=== PATIENT | female | born 1970 | race Caucasian/White ===

== ENCOUNTER 2018-02-19 11:40 | Emergency (ER) | payer SELFPAY ==
[2018-02-19 11:44] VITALS: BP 155/92; PULSE 78; RESP 16; TEMP 36.7; O2SAT 99
--- NOTE | 2018-02-19 12:09 | DI.CT_ITS ---
SYMPTOMS/DIAGNOSIS: ABDOMINAL PAIN, WORSE LEFT LOWER QUADRANT AND LOW CENTRAL ABDOMINAL AND PELVIC CT: CT examination of the abdomen and pelvis was performed with a bolus infusion of 100 cc of Omnipaque 350 and ingestion of dilute barium. Images obtained through the lung bases are unremarkable. Note is made of an apparent 3.6 cm in diameter hepatic cyst. The gallbladder and bile ducts are CT normal. The pancreas is unremarkable in appearance. The spleen is unremarkable in appearance with incidental note made of a couple of splenules. Adrenals and kidneys are unremarkable. No urinary tract calcification or obstruction. Incidental small lower pole left renal cyst noted. Abdominal aorta is of normal diameter and no major vascular abnormality is seen. No significant abdominal wall hernia is seen. No significant abdominal or pelvic adenopathy. Appendix is normal. Note is made of wall thickening of the sigmoid colon with marked associated pericolonic fat edema. The findings are consistent with diverticulitis with no evidence of perforation, obstruction or abscess formation. Incidental note is made of a 3.0 cm in greatest diameter, mildly heterogeneous, rounded right adnexal mass consistent with right ovary. Pelvic ultrasound requested to rule out complex ovarian mass. Left ovary is unremarkable in appearance. CONCLUSION: 1. Findings consistent with uncomplicated sigmoid diverticulitis. 2. Incidental right ovarian mass, which is indeterminate by CT criteria; correlation with pelvic ultrasound recommended.
--- NOTE | 2018-02-19 12:11 | W.ED.GENAD ---
Discharge Plan Disposition Patient Disposition: HOME Condition: Fair Discharge Details Chief Complaint: Abd Prob Clinical Impression: Diverticulitis Primary Care Provider: Charanjit Arias ED Provider: Ana Beal Home Meds and New Rx's Prescriptions: New metronidazole 500 mg tablet 500 mg PO TID Qty: 30 RF: 0 sulfamethoxazole-trimethoprim [Bactrim DS] 800-160 mg tablet 1 tab PO BID Qty: 20 RF: 0 Discharge Instructions Instructions: Diverticulitis (ED), Diverticulitis Diet (ED) Additional Instructions: Encourage hydration. Tylenol and/or ibuprofen as needed for discomfort. Please take Bactrim and Keflex as prescribed. Please follow-up with primary care by the end of the week for reevaluation. Also need to discuss outpatient ultrasound for follow-up of the right ovarian mass noted incidentally on your CAT scan. If you develop fevers, chills, increased pain, vomiting, inability to stay hydrated or other new/worsening symptoms please seek care urgently once again Referrals: Charanjit Arias [Primary Care Provider] - Discharge Data Discharge Date/Time-TO BE ENTERED AT DEPARTURE: 02/19/18 14:50 Medical Decision Making Patient presents today with chief complaint of diffuse abdominal pain. On exam, pain is worse in the left lower quadrant and low central abdomen. She denies any change in urinary habits. Reports she is a difficult bowel movements no change in bowel habits for the past 2 days. She denies any blood in stool. She denies fevers or chills. Denies any nausea vomiting. No change in appetite. No guarding or rebound tenderness on exam. Patient is afebrile, pulse is 78. Patient appears nontoxic. Given location of the discomfort, and concern for possible diverticulitis. Patient does not have history of diverticulitis. Will obtain CT with oral and IV contrast as well as laboratory evaluation. Patient is status post hysterectomy, tubal ligation and has history of hypertension. Patient requesting Tylenol to help with discomfort Laboratory evaluation without significant abnormality CT reviewed by radiologist. Radiologist contacted the department and advised that she has acute diverticulitis with no signs of complication. Advised no abscess, no perforation. He also noted an incidental finding of a right ovarian mass that appears heterogeneous and advised an outpatient pelvic ultrasound Discussed these findings with the patient. She will be treated with Bactrim and Flagyl for diverticulitis. Advised that she avoid alcohol while taking antibiotics. Encourage use of a probiotic. Encouraged hydration. She is given strict return precautions. Advised that she follow-up with primary care the end of the week for reevaluation and to discuss the findings of the CT to schedule outpatient ultrasound of the ovarian mass. Patient did seem quite upset regarding the ovarian mass. No familial gynecologic cancers. Patient is an active smoker. All of her questions and concerns were addressed and she is in agreement with this plan. HPI General Mode of arrival: ambulatory. Date/Time Provider Initiated Documentation: 02/19/18 11:46. Limitations to Documentation: no limitations. Information obtained by: patient. History of Present Illness 47 year old F presents to the emergency department with the chief complaint of Abdominal pain, described as moderate, with intensity rated at 5. Quality is described as stabbing and aching, and is localized to the abdomen (generalized lower abdomen, worse in the LLQ). Patient reports radiation to back. Patient started experiencing this day(s) (2) and it has been constant. No relieving factors improve symptom(s), No exacerbating factors reported . Patient notes no other symptoms.; denies chest pain, cough, diaphoresis, fever/chills, headaches, loss of appetite, nausea/vomiting, rash and shortness of breath. Patient did receive the following treatments prior to arrival, NSAID Related Data Home Medications Medication Instructions Recorded Confirmed metronidazole 500 mg PO TID #30 tab 02/19/18 sulfamethoxazole-trimethoprim 1 tab PO BID #20 tab 02/19/18 [Bactrim DS] Previous Rx's Medication Instructions Recorded metronidazole 500 mg PO TID #30 tab 02/19/18 sulfamethoxazole-trimethoprim 1 tab PO BID #20 tab 02/19/18 [Bactrim DS] Allergies Allergy/AdvReac Type Severity Reaction Status Date / Time codeine [Codeine] AdvReac Unverified 02/19/18 11:48 lidocaine AdvReac heart Unverified 02/19/18 11:48 racing General Stated Complaint: Abd Prob GLORIA: 3 Review of Systems Constitutional Reports as per HPI, Denies chills, Denies fever(s) and Denies poor appetite Cardiovascular Reports as per HPI, Denies chest pain, Denies chest pain at rest, Denies chest pain with activity, Denies dyspnea and Denies dyspnea on exertion Respiratory Denies cough, Denies dyspnea and Denies dyspnea on exertion Gastrointestinal Reports as per HPI, Denies belching, Denies melena, Denies bloating, Reports change in bowel habits (reports that typically has a BM every few days. States that she had 5 small BM yesterady, one small, painful BM today. ), Denies diarrhea, Denies nausea and Denies vomiting Genitourinary Denies dysuria, Denies flank pain and Denies vaginal discharge Musculoskeletal Reports as per HPI and Reports back pain (pain radiates in the low central back) Integumentary/Breasts Denies rash PFSH Family History Mother Hyperlipidemia Father Essential hypertension Sister No problems noted. Brother Hyperlipidemia Grandfather No problems noted. Grandfather Personal history of malignant neoplasm Grandmother No problems noted. Grandmother Personal history of malignant neoplasm Social History Smoking/Tobacco Use Status: Current every day Surgical History HYSTERECTOMY Ligation of fallopian tube Exam Const General: cooperative, healthy appearing, comfortable, no acute distress, well developed and well groomed Nutritional Appearance: average body habitus and well nourished Orientation: alert and awake Eyes General: appearance normal, both eyes and all related structures Resp Effort & Inspection: normal respiratory effort, able to speak in complete sentences and no respiratory distress Auscultation: clear to auscultation bilaterally Cardio Rate: regular rate Rhythm: regular rhythm Heart Sounds: S1 normal and S2 normal GI Inspection: no abdominal wall ecchymosis, no edema, non-distended and incision (patient has well healed incisions from hysterectomy and tubal ligation) Palpation: soft, no hepatosplenomegaly, no aortic enlargement, not firm, no guarding, no masses, not rigid and tender (diffuse, worse in the LLQ and low central abdomen) periumbilically and suprapubicly; not at McBurney's point, Pinedo's sign negative and with no rebound tenderness Auscultation: normal bowel sounds Back/Spine/Pelvis Back: no CVA tenderness Thoracic/Lumbar Spine: thoracic and lumbar spine normal to inspection (pain patient reports radiates into the back is not reproducible on exam) Skin General skin exam: no rashes or lesions noted Lesions: no lesions Rashes: no rashes Neuro General: alert Cognition: normal cognition Speech: speech normal Gait: normal gait Psych Appearance: grossly normal and well kempt Mental Status: mental status grossly normal Speech and Movement: speech and movement normal Mood: congruent mood Course Vital Signs Temperature 36.7 C 02/19/18 11:44 Pulse 78 02/19/18 11:44 Respiratory Rate 16 02/19/18 11:44 Blood Pressure 155/92 H 02/19/18 11:44 Pulse Oximetry 99 02/19/18 11:44 Temperature 36.7 C 02/19/18 11:44 Temperature Source Skin 02/19/18 11:44 Pulse 78 02/19/18 11:44 Respiratory Rate 16 02/19/18 11:44 Respiratory Effort Non-Labored 02/19/18 11:44 Blood Pressure 155/92 H 02/19/18 11:44 Pulse Oximetry 99 02/19/18 11:44 Oxygen Delivery Method Room Air 02/19/18 11:44 Oxygen Flow Rate 0 02/19/18 11:44 Pain Level 5 02/19/18 11:48
--- NOTE | 2018-02-19 12:20 | ED.GENADUL_ITS ---
Discharge Plan Disposition Patient Disposition: HOME Condition: Fair Discharge Details Chief Complaint: Abd Prob Clinical Impression: Diverticulitis Primary Care Provider: Charanjit Arias ED Provider: Ana Beal Home Meds and New Rx's Prescriptions: New metronidazole 500 mg tablet 500 mg PO TID Qty: 30 RF: 0 sulfamethoxazole-trimethoprim [Bactrim DS] 800-160 mg tablet 1 tab PO BID Qty: 20 RF: 0 Discharge Instructions Instructions: Diverticulitis (ED), Diverticulitis Diet (ED) Additional Instructions: Encourage hydration. Tylenol and/or ibuprofen as needed for discomfort. Please take Bactrim and Keflex as prescribed. Please follow-up with primary care by the end of the week for reevaluation. Also need to discuss outpatient ultrasound for follow-up of the right ovarian mass noted incidentally on your CAT scan. If you develop fevers, chills, increased pain, vomiting, inability to stay hydrated or other new/worsening symptoms please seek care urgently once again Referrals: Charanjit Arias [Primary Care Provider] - Discharge Data Discharge Date/Time-TO BE ENTERED AT DEPARTURE: 02/19/18 14:50 Medical Decision Making Patient presents today with chief complaint of diffuse abdominal pain. On exam , pain is worse in the left lower quadrant and low central abdomen. She denies any change in urinary habits. Reports she is a difficult bowel movements no change in bowel habits for the past 2 days. She denies any blood in stool. She denies fevers or chills. Denies any nausea vomiting. No change in appetite. No guarding or rebound tenderness on exam. Patient is afebrile, pulse is 78. Patient appears nontoxic. Given location of the discomfort, and concern for possible diverticulitis. Patient does not have history of diverticulitis. Will obtain CT with oral and IV contrast as well as laboratory evaluation. Patient is status post hysterectomy, tubal ligation and has history of hypertension. Patient requesting Tylenol to help with discomfort Laboratory evaluation without significant abnormality CT reviewed by radiologist. Radiologist contacted the department and advised that she has acute diverticulitis with no signs of complication. Advised no abscess, no perforation. He also noted an incidental finding of a right ovarian mass that appears heterogeneous and advised an outpatient pelvic ultrasound Discussed these findings with the patient. She will be treated with Bactrim and Flagyl for diverticulitis. Advised that she avoid alcohol while taking antibiotics. Encourage use of a probiotic. Encouraged hydration. She is given strict return precautions. Advised that she follow-up with primary care the end of the week for reevaluation and to discuss the findings of the CT to schedule outpatient ultrasound of the ovarian mass. Patient did seem quite upset regarding the ovarian mass. No familial gynecologic cancers. Patient is an active smoker. All of her questions and concerns were addressed and she is in agreement with this plan. HPI General Mode of arrival: ambulatory . Date/Time Provider Initiated Documentation: 02/19/18 11:46 . Limitations to Documentation: no limitations . Information obtained by: patient . History of Present Illness 47 year old F presents to the emergency department with the chief complaint of Abdominal pain, described as moderate, with intensity rated at 5. Quality is described as stabbing and aching, and is localized to the abdomen ( generalized lower abdomen, worse in the LLQ). Patient reports radiation to back. Patient started experiencing this day(s) (2) and it has been constant. No relieving factors improve symptom(s), No exacerbating factors reported . Patient notes no other symptoms.; denies chest pain, cough, diaphoresis, fever/chills, headaches, loss of appetite, nausea/vomiting, rash and shortness of breath. Patient did receive the following treatments prior to arrival, NSAID Related Data Home Medications Medication Instructions Recorded Confirmed metronidazole 500 mg PO TID #30 tab 02/19/18 sulfamethoxazole-trimethoprim 1 tab PO BID #20 tab 02/19/18 [Bactrim DS] Previous Rx's Medication Instructions Recorded metronidazole 500 mg PO TID #30 tab 02/19/18 sulfamethoxazole-trimethoprim 1 tab PO BID #20 tab 02/19/18 [Bactrim DS] Allergies Allergy/AdvReac Type Severity Reaction Status Date / Time codeine [Codeine] AdvReac Unverified 02/19/18 11:48 lidocaine AdvReac heart Unverified 02/19/18 11:48 racing General Stated Complaint: Abd Prob GLORIA: 3 Review of Systems Constitutional Reports as per HPI, Denies chills, Denies fever(s) and Denies poor appetite Cardiovascular Reports as per HPI, Denies chest pain, Denies chest pain at rest, Denies chest pain with activity, Denies dyspnea and Denies dyspnea on exertion Respiratory Denies cough, Denies dyspnea and Denies dyspnea on exertion Gastrointestinal Reports as per HPI, Denies belching, Denies melena, Denies bloating, Reports change in bowel habits (reports that typically has a BM every few days. States that she had 5 small BM yesterady, one small, painful BM today. ), Denies diarrhea, Denies nausea and Denies vomiting Genitourinary Denies dysuria, Denies flank pain and Denies vaginal discharge Musculoskeletal Reports as per HPI and Reports back pain (pain radiates in the low central back) Integumentary/Breasts Denies rash PFSH Family History Mother Hyperlipidemia Father Essential hypertension Sister No problems noted. Brother Hyperlipidemia Grandfather No problems noted. Grandfather Personal history of malignant neoplasm Grandmother No problems noted. Grandmother Personal history of malignant neoplasm Social History Smoking/Tobacco Use Status: Current every day Surgical History HYSTERECTOMY Ligation of fallopian tube Exam Const General: cooperative, healthy appearing, comfortable, no acute distress, well developed and well groomed Nutritional Appearance: average body habitus and well nourished Orientation: alert and awake Eyes General: appearance normal, both eyes and all related structures Resp Effort & Inspection: normal respiratory effort, able to speak in complete sentences and no respiratory distress Auscultation: clear to auscultation bilaterally Cardio Rate: regular rate Rhythm: regular rhythm Heart Sounds: S1 normal and S2 normal GI Inspection: no abdominal wall ecchymosis, no edema, non-distended and incision ( patient has well healed incisions from hysterectomy and tubal ligation) Palpation: soft, no hepatosplenomegaly, no aortic enlargement, not firm, no guarding, no masses, not rigid and tender (diffuse, worse in the LLQ and low central abdomen) periumbilically and suprapubicly; not at McBurney's point, Pinedo's sign negative and with no rebound tenderness Auscultation: normal bowel sounds Back/Spine/Pelvis Back: no CVA tenderness Thoracic/Lumbar Spine: thoracic and lumbar spine normal to inspection (pain patient reports radiates into the back is not reproducible on exam) Skin General skin exam: no rashes or lesions noted Lesions: no lesions Rashes: no rashes Neuro General: alert Cognition: normal cognition Speech: speech normal Gait: normal gait Psych Appearance: grossly normal and well kempt Mental Status: mental status grossly normal Speech and Movement: speech and movement normal Mood: congruent mood Course Vital Signs Temperature 36.7 C 02/19/18 11:44 Pulse 78 02/19/18 11:44 Respiratory Rate 16 02/19/18 11:44 Blood Pressure 155/92 H 02/19/18 11:44 Pulse Oximetry 99 02/19/18 11:44 Temperature 36.7 C 02/19/18 11:44 Temperature Source Skin 02/19/18 11:44 Pulse 78 02/19/18 11:44 Respiratory Rate 16 02/19/18 11:44 Respiratory Effort Non-Labored 02/19/18 11:44 Blood Pressure 155/92 H 02/19/18 11:44 Pulse Oximetry 99 02/19/18 11:44 Oxygen Delivery Method Room Air 02/19/18 11:44 Oxygen Flow Rate 0 02/19/18 11:44 Pain Level 5 02/19/18 11:48
[2018-02-19 12:23] LABS: Abs Immature Grans 0.02 k/cumm (0.0-0.09); Absolute Basophil Count 0.04 k/cumm (0.0-0.2); Absolute Eosinophil Count 0.09 k/cumm (0.0-0.7); Absolute Lymphocyte Count 1.17 k/cumm (1.2-3.4); Absolute Monocyte Count 0.72 k/cumm (0.11-0.7); Absolute Neutrophil Count 5.54 k/cumm (1.2-6.7); Basophils % 0.5; Eosinophils % 1.2; HCT 44.5 % (36.0-46.0); HGB 15.1 g/dL (12.0-15.5); Immature Grans % 0.3; Lymphocytes % 15.4; Mean Corp. HGB Concentration 33.9 g/dL (32.0-36.0); Mean Corpuscular Hemoglobin 32.5 pg (27.0-33.0); Mean Corpuscular Volume 95.9 fL (80-95); Mean Platelet Volume 10.9 fL (8.0-11.0); Monocytes % 9.5; Neutrophils % 73.1; Platelet Count 262 x1000/uL (130-400); RBC 4.64 m/cumm (4.00-5.20); RBC Distribution Width 13.7 % (11.7-14.6); White Blood Cell Count 7.58 k/cumm (4.4-10.8)
[2018-02-19] MEDS: Acetaminophen 500 MG TAB 1000 MG PO (12:23)
[2018-02-19] MEDS: Normal Saline 1,000 ML 1000 ML IV (12:24)
[2018-02-19 12:33] LABS: Bilirubin Negative (Negative); Blood Negative (Negative); Clarity Clear; Glucose Negative (Negative); Ketones Negative (Negative); Leukocyte Esterase Negative (Negative); Nitrite Negative (Negative); Urobilinogen 0.2 EU/dL (Up TO 0.2); pH 6.5 (5-8)
[2018-02-19 12:37] LABS: ALT 38 U/L (12-78); AST 20 U/L (15-37); Albumin 3.8 g/dL (3.4-5.0); Alkaline Phosphatase 117 U/L (46-116); Anion Gap 10.4 mmol/L (3-11); BUN 10 mg/dL (7-18); Bilirubin, Total 0.3 mg/dL (0.2-1.0); CO2 24.6 mmol/L (21.0-32.0); CREATININE 0.78 mg/dL (0.55-1.02); Calcium 9.2 mg/dL (8.5-10.1); Chloride 101 mmol/L (98-107); Glucose 95 mg/dL (70-100); Lipase 144 U/L (73-393); Potassium 3.7 mmol/L (3.5-5.1); Sodium 136 mmol/L (136-145); Total Protein 8.6 g/dL (6.4-8.2)
[2018-02-19] MEDS: Omnipaque 350 MG/ML 100 ML BTL IJ (14:18)
[2018-02-19 14:37] VITALS: BP 155/92; PULSE 78; RESP 16; TEMP 36.7; O2SAT 99
== END 2018-02-19 14:50 | disposition home or self-care (01) ==
PROVIDERS: Emergency Provider Physician Assistant; PCP Family Medicine
DX: K57.32 Diverticulitis of large intestine without perforation or abscess without bleeding (principal); N83.201 Unspecified ovarian cyst, right side; I10 Essential (primary) hypertension
CPT/HCPCS: 80053; 83690; 96360; 99285; 74177; 81003; 85025; 99284; J3490

== ENCOUNTER 2018-02-23 01:04 | Outpatient (CLI) | payer SELFPAY ==
--- NOTE | 2018-02-23 14:03 | DI.US_ITS ---
SYMPTOM/DIAGNOSIS: RT OVARIAN MASS, N83.9 PELVIC ULTRASOUND: Transabdominal and transvaginal examination was performed. Comparison CT is 02/19/18. Comparison pelvic ultrasound is 03/09/11. The patient is status post hysterectomy. The right ovary measures 2.1 by 2 by 2.2 cm. There is a 1.6 by 1.8 by 1.9 cm. simple cyst arising from the right ovary. There is normal blood flow to the right ovary. No solid mass or torsion is seen. The left ovary measures 2.1 by 1.3 by 1.4 cm. and is grossly unremarkable. No free pelvic fluid or hydronephrosis is seen. Incidental note is made of increased echogenicity of the liver suggesting fatty infiltration. IMPRESSION: 1. Status post hysterectomy. 2. 1.9 cm. simple cyst on the right ovary.
== END 2018-02-23 01:24 ==
PROVIDERS: PCP Family Medicine; Visit Provider Family Medicine
DX: N83.291 Other ovarian cyst, right side (principal); Z90.710 Acquired absence of both cervix and uterus
CPT/HCPCS: 76830; 76856

== ENCOUNTER 2019-02-08 09:00 | Outpatient (CLI) | payer SELFPAY ==
[2019-02-08 11:23] LABS: Cholesterol 305 mg/dL (50-200); Glucose 99 mg/dL (70-100); HDL Cholesterol 37 mg/dL (40-60); Triglyceride 420 mg/dL (30-150)
[2019-02-08 12:04] LABS: LDL CHOLESTEROL 195 mg/dL (<100)
== END 2019-02-08 09:20 ==
PROVIDERS: PCP Family Medicine; Visit Provider Family Medicine
DX: Z68.28 Body mass index [BMI] 28.0-28.9, adult (principal); Z72.0 Tobacco use
CPT/HCPCS: 36415; 80061; 82947; 83721

== ENCOUNTER 2019-06-04 09:14 | Outpatient (CLI) | payer SELFPAY ==
[2019-06-04 13:02] LABS: Alkaline Phosphatase 94 U/L (46-116); Cholesterol 246 mg/dL (<200); HDL Cholesterol 51 mg/dL (40-60); Triglyceride 401 mg/dL (<150)
[2019-06-04 13:36] LABS: LDL CHOLESTEROL 136 mg/dL (<100)
[2019-06-04 13:59] LABS: Creatine Kinase 51 U/L (26-192)
== END 2019-06-04 09:34 ==
PROVIDERS: PCP Family Medicine; Visit Provider Family Medicine
DX: E78.5 Hyperlipidemia, unspecified (principal); R74.8 Abnormal levels of other serum enzymes; M89.8X9 Other specified disorders of bone, unspecified site
CPT/HCPCS: 36415; 80061; 82550; 83721; 84075

== ENCOUNTER 2019-08-21 00:44 | Outpatient (CLI) | payer SELFPAY ==
--- NOTE | 2019-08-21 07:00 | DI.DEXA_ITS ---
EXAM: XR DEXA BONE DENSITY W/WO [place] CLINICAL HISTORY: SCREENING FOR OSTEOPOROSIS IN POSTMENOPAUSAL WOMAN,Z78.0 COMPARISON: No exams were available for comparison FINDINGS: DEXA scan was performed according to the usual protocol. Findings for left hip scanning are T-score 0.3 with left femoral neck T score -0.1. Lumbar spine scanning shows T-score -0.3. Left forearm scanning shows T-score 0.2. IMPRESSION: Normal bone density according to the WHO criteria. The lateral vertebral scanogram shows no evidence of a vertebral compression fracture.
== END 2019-08-21 01:04 ==
PROVIDERS: PCP Family Medicine; Visit Provider Family Medicine
DX: Z13.820 Encounter for screening for osteoporosis (principal); Z78.0 Asymptomatic menopausal state
CPT/HCPCS: 77080

== ENCOUNTER 2019-11-28 00:17 | Outpatient (CLI) | payer SELFPAY ==
--- NOTE | 2019-11-28 07:00 | DI.MAMMO_ITS ---
EXAM: MAMMO SCREENING CLINICAL HISTORY: screening, Z12.39 TECHNIQUE: Mammograms were interpreted according to the usual protocol including computer analysis w [employer] CAD system, tomosynthesis and C-view imaging. COMPARISON: 2010 through 2015 FINDINGS: The breasts are composed of heterogeneously dense fibroglandular densities, Breast Density category C . No suspicious masses or suspicious microcalcifications are seen. No skin thickening or abnormal axillary lymph nodes are seen. There has been no significant change from prior exams. IMPRESSION: BI-RADS Category 1: Negative mammogram. Yearly screening mammography is recommended. Breast Density Category C, heterogeneously dense tissue which decreases the sensitivity of the mammog denise. The mammogram demonstrates the patient's breast tissue is dense. Dense breast tissue is very common a nd is not abnormal but dense breast tissue can make it harder to find cancer on a mammogram. Also, de nse breast tissue may increase breast cancer risk. This information about the result of the mammogram report was provided to the patient to raise their awareness. Use this report when you speak with the patient about their risks for breast cancer, which includes their family history. At that time, you may recommend additional screening tests (Ultrasound or MRI) as they might be useful based on their r isk. A negative radiographic report should not delay biopsy if a dominant or clinically suspicious mass is present. Up to ten percent of cancers are not identified on mammography. A negative report may reinforce clinical impression. Adenosis and dense breasts may obscure an underlying neoplasm. False positive reports average 6 to 10%.
== END 2019-11-28 00:37 ==
PROVIDERS: PCP Family Medicine; Visit Provider Family Medicine
DX: Z12.31 Encounter for screening mammogram for malignant neoplasm of breast (principal)
CPT/HCPCS: 77063; 77067

== ENCOUNTER 2020-05-16 08:30 | Emergency (ER) | payer SELFPAY ==
[2020-05-16 08:34] VITALS: BP 140/92; PULSE 69; RESP 17; TEMP 36.6; O2SAT 100
--- NOTE | 2020-05-16 08:45 | DI.CT_ITS ---
EXAM: CT NECK W CLINICAL HISTORY: L sided throat pain and swelling. TECHNIQUE: Imaging Protocol: Axial computed tomography images with coronal and sagittal reformatted images were created and reviewed CONTRAST MATERIAL: Intravenous: Omnipaque 350 Contrast volume:100 ml contrast route:IV - COMPARISON: No exams were available for comparison FINDINGS: There is asymmetric left-sided tonsillar enlargement. There is mild narrowing of the airway. There is a small central area of low density measuring 2.2 x 1.7 cm, consistent with an abscess. Punctate calcifications are seen in the right palatine tonsil which could be related to prior episodes in of i nflammation. Parotids/submandibular/thyroid gland: Normal. Lymphadenopathy: There is scattered lymph nodes seen along the level one to level three all measurin g less than 8 mm in short axis diameter which are physiologic in nature. Sinuses and mastoid air cells: Clear. Carotids/Jugular/vertebral arteries.: Within normal limits. Soft tissues: No visible cellulitis. No subcutaneous abscess. The epiglottis and vocal cords are within normal limits. Images through both lung apices are unremark able. Bones: No destructive lesions. IMPRESSION: Left palatine tonsillitis with 2.2 centimeter abscess and mild narrowing of the airway.. RADIATION DOSE DELIVERED: 305.52mGy.cm Total DLP DATA REPOSITORY: All CT scans at this facility are submitted to the National Radiology Data Registry (NRDR) Dose Index Registry (DIR) with the [employer] (A[employer]). RADIATION OPTIMIZATION: All CT scans at this facility use at least one of these dose optimization te chniques: automated exposure control; mA and/or kV adjustment per patient size (includes targeted exa ms where dose is matched to clinical indication); or iterative reconstruction.
[2020-05-16 09:14] LABS: Abs Immature Grans 0.04 10^3/uL (0.0-0.06); Absolute Basophil Count 0.06 10^3/uL (0.0-0.2); Absolute Eosinophil Count 0.11 10^3/uL (0.0-0.7); Absolute Lymphocyte Count 1.26 10^3/uL (1.2-3.4); Absolute Monocyte Count 0.75 10^3/uL (0.1-0.8); Absolute Neutrophil Count 6.14 10^3/uL (1.2-6.7); Basophils % 0.7; Eosinophils % 1.3; HCT 42.3 % (36.0-46.0); HGB 14.1 g/dL (11.2-15.7); Immature Grans % 0.5; Lymphocytes % 15.1; MCH 32.5 pg (27.0-33.0); MCHC 33.3 % (32.0-36.0); MCV 97.5 fL (80-95); MPV 10.9 fL (8.0-11.0); Neutrophils % 73.4; Nucleated RBC 0 %; Platelet Count 263 10^3/uL (130-400); RBC 4.34 10^6/uL (3.93-5.22); RDW 13.5 % (11.7-14.6); RDW-SD 48.9 fL; WBC 8.36 10^3/uL (4.4-10.8)
[2020-05-16 09:24] LABS: ALT 35 U/L (14-59); AST 15 U/L (15-37); Alkaline Phosphatase 117 U/L (46-116); Anion Gap 9.7 mmol/L (3-11); BUN 13 mg/dL (7-18); Bilirubin, Total 0.4 mg/dL (0.2-1.0); CO2 26.3 mmol/L (21.0-32.0); CREATININE 0.95 mg/dL (0.55-1.02); Calcium 9.2 mg/dL (8.5-10.1); Chloride 101 mmol/L (98-107); Glucose 110 mg/dL (74-106); Potassium 3.5 mmol/L (3.5-5.1); Sodium 137 mmol/L (136-145); Total Protein 8.5 g/dL (6.4-8.2)
[2020-05-16] MEDS: Omnipaque 350 MG/ML 100 ML BTL IJ (10:29)
[2020-05-16] MEDS: Normal Saline - Diluent 50 ML VIAL IV (10:29)
[2020-05-16] MEDS: Normal Saline Flush 10 ML SYR IVP (10:30)
--- NOTE | 2020-05-16 10:54 | DI.VRAD_ITS ---
PROCEDURE INFORMATION: Exam: CT Neck With Contrast Exam date and time: 05/16/2020 8:53 AM Age: 50 years old Clinical indication: Other: L sided throat pain and swelling TECHNIQUE: Imaging protocol: Computed tomography images of the neck with intravenous contrast. Radiation optimization: All CT scans at this facility use at least one of these dose optimization techniques: automated exposure control; mA and/or kV adjustment per patient size (includes targeted exams where dose is matched to clinical indication); or iterative reconstruction. Contrast material: OMNIPAQUE 350; Contrast volume: 100 ml; Contrast route: INTRAVENOUS (IV); COMPARISON: No relevant prior studies available. FINDINGS: Nasopharynx: Unremarkable. Oropharynx: There is a 2.2 x 1.7 x 1.6 cm swollen left tonsil with central low density and peripheral enhancing rim as well as some foci of peripheral air. There is resultant mild effacement of the ipsilateral oral airway. There are calcifications within the right palatine tonsil which likely represents sequelae of prior infection/inflammation. Hypopharynx: Unremarkable. Larynx: Unremarkable. Normal epiglottis. Retropharyngeal space: Unremarkable. Submandibular/Parotid glands: Normal. Glands are normal in size. Thyroid: Normal. No enlarged or calcified nodules. Lymph nodes: Reactive cervical lymph nodes. Trachea: Visualized trachea is unremarkable. Lungs: Unremarkable as visualized. Bones/joints: Unremarkable. No acute fracture. Soft tissues: Unremarkable. No significant soft tissue swelling. IMPRESSION: Left tonsillitis/tonsillar abscess with mild effacement of the ipsilateral oral airway. Recommend clinical correlation and consideration of ENT consultation. Dictated and Authenticated by: Everett Rodriguez MD. Ordering:UMANG Mixon MD
--- NOTE | 2020-05-16 11:02 | ED.GENADUL_ITS ---
Discharge Plan Disposition Patient Disposition: HOME Condition: Stable Discharge Details Clinical Impression: Tonsil, abscess Primary Care Provider: Charanjit Arias ED Provider: Oral Thompson Home Meds and New Rx's Prescriptions: New clindamycin HCl 300 mg capsule 300 mg PO Q8H 10 Days Qty: 30 RF: 0 Continued sertraline 50 mg tablet 50 mg PO DAILY Qty: 90 RF: 3 atorvastatin 20 mg tablet 20 mg PO QPM Qty: 90 RF: 3 Discharge Instructions Instructions: Peritonsillar Abscess (ED), Tonsillitis (ED) Additional Instructions: Clindamycin as directed. Salt water gargles as tolerated. [id number] Tylenol and/or Motrin as directed for discomfort. Please watch for new or worsening symptoms and return to the ER for any concerns. I have placed you on the ENT list, please contact the office of Dr. Payton on Monday for prompt outpatient reevaluation. Referrals: Jose Antonio Payton DO [OSTEOPATHIC DOCTOR] - Discharge Data Discharge Date/Time-TO BE ENTERED AT DEPARTURE: 05/16/20 12:49 Medical Decision Making 50-year-old female presents with left-sided throat-neck pain and swelling for the past 3 days worsening in nature. Denies any other symptoms. She is able to speak in full sentences, able to manage her secretions without difficulty. Rapid strep test is negative. Clinically this appears to be all left-sided, the left tonsil does appear to be enlarged, and there is minimal swelling of the left sided soft palate. Airway is patent. I am concerned for the possibility of a tonsillar-peritonsillar abscess. Will obtain IV access and obtain routine laboratory values. We will then obtain CT imaging with contrast of the soft tissues neck. Laboratory values are unremarkable. WBC is 8.36. Electrolytes unremarkable. GFR greater than 60. CT resulted and the impression per virtual radiology is a left tonsillitis- tonsillar abscess with mild effacement of the ipsilateral oral airway. Recommend clinical correlation and consider an ENT consultation. After the CT resulted, I did request that Dr. Knight evaluate the patient. Please see his note. Plan is to treat with IV clindamycin, Toradol, dexamethasone, normal saline and reassess. If patient is feeling better option for conservative therapy of antibiotic therapy and ENT follow-up versus attempted I&D here in the ER. Please see Dr. Knight's note. Upon reassessment, reports significant improvement of her symptoms with IV medication and declines emergent I&D. Will place on Dr. Dickson's callback list and have the patient contact his office first thing Monday morning. We d iscussed return immediately to the ER for new or evolving symptoms. Patient will be given a prescription of clindamycin. We discussed [id number] Tylenol and/or Motrin for discomfort. Salt water gargles as tolerated. Patient has no additional questions or concerns upon discharge comfortable with this plan. Upon discharge she appears well, nontoxic. Managing her own secretions and speaking full sentences. Her airway is patent. Lab Data Lab results reviewed: Yes I reviewed the patient's lab results. Lab results narrative: 05/16/20 08:48 Pharynx Streptococcus Screen ([facility]) - Pending Laboratory Tests Range/Units 05/16/20 05/16/20 09:00 09:00 WBC (4.4-10.8) 10^3/uL 8.36 RBC (3.93-5.22) 10^6/uL 4.34 Hgb (11.2-15.7) g/dL 14.1 Hct (36.0-46.0) % 42.3 MCV (80-95) fL 97.5 H MCH (27.0-33.0) pg 32.5 MCHC (32.0-36.0) % 33.3 RDW (11.7-14.6) % 13.5 Plt Count (130-400) 10^3/uL 263 MPV (8.0-11.0) fL 10.9 Immature Gran % 0.5 Neutrophils % 73.4 Lymphocytes % 15.1 Monocytes % 9.0 Eosinophils % 1.3 Basophils % 0.7 Nucleated RBC % % 0 Absolute Neutrophils (1.2-6.7) 10^3/uL 6.14 Absolute Lymphocytes (1.2-3.4) 10^3/uL 1.26 Absolute Monocytes (0.1-0.8) 10^3/uL 0.75 Absolute Eosinophils (0.0-0.7) 10^3/uL 0.11 Absolute Basophils (0.0-0.2) 10^3/uL 0.06 Sodium (136-145) mmol/L 137 Potassium (3.5-5.1) mmol/L 3.5 Chloride (98-107) mmol/L 101 Carbon Dioxide (21.0-32.0) mmol/L 26.3 Anion Gap (3-11) mmol/L 9.7 BUN (7-18) mg/dL 13 Creatinine (0.55-1.02) mg/dL 0.95 Estimated GFR/1.73 m2 (mL/min/1.73m2) >= 60.00 Glucose (74-106) mg/dL 110 H Calcium (8.5-10.1) mg/dL 9.2 Total Bilirubin (0.2-1.0) mg/dL 0.4 AST (15-37) U/L 15 ALT (14-59) U/L 35 Alkaline Phosphatase (46-116) U/L 117 H Total Protein (6.4-8.2) g/dL 8.5 H Albumin (3.4-5.0) g/dL 4.0 HPI General Mode of arrival: ambulatory . Date/Time Provider Initiated Documentation: 05/16/20 08:45 . Limitations to Documentation: no limitations . Information obtained by: patient . HPI Narrative: This is a 50-year-old female, past medical history that includes depression, current smoker, hyperlipidemia, presenting to the ER today with 3-day history of left-sided throat and neck discomfort. She reports is getting worse and now radiates up into her left ear. She denies headache, fever, ear drainage, shortness of breath, cough, chest pain, abdominal pain, nausea, vomiting, numbness, tingling, weakness. She does admit to increased pain with swallowing but she is able to manage her own secretions and she is able to tolerate p.o. intake.. Related Data Home Medications Medication Instructions Recorded Confirmed sertraline 50 mg tablet 50 mg PO DAILY #90 tab 08/28/19 05/16/20 atorvastatin 20 mg tablet 20 mg PO QPM #90 tab 03/09/20 05/16/20 clindamycin HCl 300 mg PO Q8H 10 Days #30 cap 05/16/20 Previous Rx's Medication Instructions Recorded sertraline 50 mg tablet 50 mg PO DAILY #90 tab 08/28/19 atorvastatin 20 mg tablet 20 mg PO QPM #90 tab 03/09/20 clindamycin HCl 300 mg PO Q8H 10 Days #30 cap 12/26/20 Allergies Allergy/AdvReac Type Severity Reaction Status Date / Time codeine [Codeine] AdvReac Verified 05/16/20 08:38 lidocaine AdvReac heart Verified 05/16/20 08:38 racing General Stated Complaint: Sorethroat GLORIA: 4 Review of Systems Constitutional Constitutional: Denies fever(s) and Denies headache(s) ENT Ears, Nose, Mouth, and Throat: Denies otalgia, Denies headache(s), Denies nasal congestion, Reports neck pain and Reports sore throat Cardiovascular Cardiovascular: Denies chest pain and Denies dyspnea Respiratory Respiratory: Denies cough and Denies dyspnea Gastrointestinal Gastrointestinal: Denies abdominal pain, Denies nausea and Denies vomiting Musculoskeletal Musculoskeletal: Denies back pain and Reports neck pain Integumentary/Breasts Skin/Breast: Denies rash Neurologic Neurologic: Denies headache(s) [facility] Medical History Dizziness Tobacco abuse Surgical History HYSTERECTOMY Supracervical Ligation of fallopian tube Family History Mother Hyperlipidemia Father Essential hypertension Sister No problems noted. Brother Hyperlipidemia Grandfather No problems noted. Grandfather Personal history of malignant neoplasm COLON Grandmother No problems noted. 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 Seatbelt use: always Do you feel safe at home: Yes Do you feel safe in your relationship?: Yes Exam Const General: cooperative, healthy appearing, comfortable and no acute distress Orientation: alert, awake and oriented x3 HENMT Head: normal to inspection, normocephalic and atraumatic Ears: external ears normal, TM's normal bilaterally and EAC's normal General nose exam: external nose normal Face and sinus: normal facial exam Mouth: lip normal, tongue normal, moist mucous membranes and no drooling Teeth and gingiva: dentition normal Throat: uvula midline, abnormal tonsil on the left erythema, exudates and hypertrophy 2+, posterior oropharynx abnormal erythema (Swelling of the left soft palate), uvula not displaced and no uvular edema Eyes General: appearance normal, both eyes and all related structures Eyelids: eyelids normal Conjunctivae: conjunctivae normal Neck Neck: normal visual inspection, full ROM, no meningeal signs, trachea midline, supple, lymphadenopathy left anterior cervical and tender (Left-sided) Resp Effort & Inspection: normal respiratory effort and able to speak in complete sentences Auscultation: clear to auscultation bilaterally Cardio Rate: regular rate Rhythm: regular rhythm Skin General skin exam: no rashes or lesions noted Neuro General: patient alert, patient awake, moves all extremities and no focal motor deficits Sensory Exam: no sensory deficits noted Psych Appearance: grossly normal Mental Status: mental status grossly normal Course Vital Signs Vital signs: Vital Signs Temperature 36.6 C 05/16/20 08:34 Pulse 69 05/16/20 08:34 Respiratory Rate 17 05/16/20 08:34 Blood Pressure 140/92 H 05/16/20 08:34 Pulse Oximetry 100 05/16/20 08:34 Temperature 36.6 C 05/16/20 08:34 Temperature Source Temporal Artery Scan 05/16/20 08:34 Pulse 69 05/16/20 08:34 Respiratory Rate 17 05/16/20 08:34 Respiratory Effort Non-Labored 05/16/20 08:36 Blood Pressure 140/92 H 05/16/20 08:34 Blood Pressure Position Sitting 05/16/20 08:34 Pulse Oximetry 100 05/16/20 08:34 Oxygen Delivery Method Room Air 05/16/20 08:34 Oxygen Flow Rate 0 05/16/20 08:34 Pain Level 8 05/16/20 08:34 Lab/Test Results Lab/Test Results: 05/16/20 08:48 Pharynx Streptococcus Screen ([facility]) - Pending Laboratory Tests Range/Units 05/16/20 05/16/20 09:00 09:00 WBC (4.4-10.8) 10^3/uL 8.36 RBC (3.93-5.22) 10^6/uL 4.34 Hgb (11.2-15.7) g/dL 14.1 Hct (36.0-46.0) % 42.3 MCV (80-95) fL 97.5 H MCH (27.0-33.0) pg 32.5 MCHC (32.0-36.0) % 33.3 RDW (11.7-14.6) % 13.5 Plt Count (130-400) 10^3/uL 263 MPV (8.0-11.0) fL 10.9 Immature Gran % 0.5 Neutrophils % 73.4 Lymphocytes % 15.1 Monocytes % 9.0 Eosinophils % 1.3 Basophils % 0.7 Nucleated RBC % % 0 Absolute Neutrophils (1.2-6.7) 10^3/uL 6.14 Absolute Lymphocytes (1.2-3.4) 10^3/uL 1.26 Absolute Monocytes (0.1-0.8) 10^3/uL 0.75 Absolute Eosinophils (0.0-0.7) 10^3/uL 0.11 Absolute Basophils (0.0-0.2) 10^3/uL 0.06 Sodium (136-145) mmol/L 137 Potassium (3.5-5.1) mmol/L 3.5 Chloride (98-107) mmol/L 101 Carbon Dioxide (21.0-32.0) mmol/L 26.3 Anion Gap (3-11) mmol/L 9.7 BUN (7-18) mg/dL 13 Creatinine (0.55-1.02) mg/dL 0.95 Estimated GFR/1.73 m2 (mL/min/1.73m2) >= 60.00 Glucose (74-106) mg/dL 110 H Calcium (8.5-10.1) mg/dL 9.2 Total Bilirubin (0.2-1.0) mg/dL 0.4 AST (15-37) U/L 15 ALT (14-59) U/L 35 Alkaline Phosphatase (46-116) U/L 117 H Total Protein (6.4-8.2) g/dL 8.5 H Albumin (3.4-5.0) g/dL 4.0 POC Strep Test-ALEXIS(Rapid) Start: 05/16/20 08:50 Freq: Status: Active Protocol: Document 05/16/20 08:50 (Rec: 05/16/20 08:50 [email or web address]) Strep test-ALEXIS(Rapid)-POC POC-Strep test-ALEXIS (Rapid) Negative POC-Strep test-ALEXIS (Rapid) Negative
[2020-05-16] MEDS: Dexamethasone 10 MG/ML VIAL IVP (11:09)
[2020-05-16] MEDS: Ketorolac 30 MG/ML VIAL IVP (11:09)
[2020-05-16] MEDS: Normal Saline 1,000 ML 1000 ML IV (11:09)
[2020-05-16] MEDS: CLINDAMYCIN 600 MG/50 ML BAG 100 MG IVPB (11:10)
[2020-05-16 12:34] VITALS: BP 145/92; PULSE 71; RESP 16; TEMP 36.7; O2SAT 94
--- NOTE | 2020-05-16 12:57 | NUR.NOTE ---
Nursing Note: Referral will not go through to ENT. Will be faxed Monday. Winifred Sheriff
--- NOTE | 2020-05-19 07:22 | NUR.NOTE ---
referral faxed to Ent for peritonsillar abscess.Nursing Note:
== END 2020-05-16 12:49 | disposition home or self-care (01) ==
PROVIDERS: Emergency Provider Physician Assistant; PCP Family Medicine
DX: J36 Peritonsillar abscess (principal)
CPT/HCPCS: 70491; 80053; 87880; 96361; 96365; 96375; 99285; 85025; 87081; 99284; J1100; J1885; J3490

== ENCOUNTER 2020-06-23 07:43 | Outpatient (REF) | payer SELFPAY ==
[2020-06-23 08:51] LABS: C Diff PCR Positive (Negative)
[2020-06-24 11:22] LABS: Campylobacter PCR Negative (Negative); Salmonella PCR Negative (Negative); Shiga Toxin PCR Negative (Negative); Shigella/Enteroinvasive Ecoli Negative (Negative)
== END 2020-06-23 07:44 | disposition home or self-care (01) ==
LOC: LBN 07:43
PROVIDERS: PCP Family Medicine; Visit Provider Nurse Practitioner Family
DX: R19.7 Diarrhea, unspecified (principal); K62.5 Hemorrhage of anus and rectum
CPT/HCPCS: 87329; 87493; 87505

== ENCOUNTER 2020-06-24 03:49 | Outpatient (CLI) | payer SELFPAY ==
[2020-06-24 09:57] LABS: Abs Immature Grans 0.03 10^3/uL (0.0-0.06); Absolute Basophil Count 0.05 10^3/uL (0.0-0.2); Absolute Eosinophil Count 0.06 10^3/uL (0.0-0.7); Absolute Lymphocyte Count 1.23 10^3/uL (1.2-3.4); Absolute Monocyte Count 0.66 10^3/uL (0.1-0.8); Absolute Neutrophil Count 3.26 10^3/uL (1.2-6.7); Basophils % 0.9; Eosinophils % 1.1; HCT 43.2 % (36.0-46.0); HGB 14.2 g/dL (11.2-15.7); Immature Grans % 0.6; Lymphocytes % 23.3; MCH 31.9 pg (27.0-33.0); MCHC 32.9 % (32.0-36.0); MCV 97.1 fL (80-95); MPV 11.2 fL (8.0-11.0); Monocytes % 12.5; Neutrophils % 61.6; Nucleated RBC 0 %; Platelet Count 274 10^3/uL (130-400); RBC 4.45 10^6/uL (3.93-5.22); RDW 13.4 % (11.7-14.6); RDW-SD 48.1 fL; WBC 5.29 10^3/uL (4.4-10.8)
[2020-06-24 10:26] LABS: ALT 34 U/L (14-59); AST 18 U/L (15-37); Albumin 4.1 g/dL (3.4-5.0); Alkaline Phosphatase 104 U/L (46-116); Anion Gap 12.2 mmol/L (3-11); BUN 14 mg/dL (7-18); Bilirubin, Total 0.3 mg/dL (0.2-1.0); CO2 24.8 mmol/L (21.0-32.0); CREATININE 0.9 mg/dL (0.55-1.02); Calcium 9.4 mg/dL (8.5-10.1); Chloride 100 mmol/L (98-107); Glucose 100 mg/dL (74-106); Potassium 4.6 mmol/L (3.5-5.1); Sodium 137 mmol/L (136-145); Total Protein 8.2 g/dL (6.4-8.2)
== END 2020-06-24 03:50 | disposition home or self-care (01) ==
LOC: LBO 03:49
PROVIDERS: PCP Family Medicine; Visit Provider Nurse Practitioner Family
DX: K62.5 Hemorrhage of anus and rectum (principal); R19.7 Diarrhea, unspecified
CPT/HCPCS: 36415; 80053; 85025

== ENCOUNTER 2020-08-14 02:29 | Outpatient (CLI) | payer SELFPAY ==
[2020-08-14 10:21] LABS: Source Nasal/Nares
[2020-08-14 14:35] LABS: COVID-19 PCR Negative (Negative)
== END 2020-08-14 02:30 | disposition home or self-care (01) ==
LOC: LBO 02:29
PROVIDERS: PCP Family Medicine; Visit Provider Otolaryngology Otolaryngology/Facial Plastic Surgery
DX: Z20.822 Contact with and (suspected) exposure to COVID-19 (principal); Z01.818 Encounter for other preprocedural examination
CPT/HCPCS: 87635

== ENCOUNTER 2020-08-17 06:15 | Day surgery (SDC) | payer SELFPAY ==
[2020-08-17] VITALS (9 sets, daily range): BP systolic 144–180; BP diastolic 92–108; PULSE 64–73; RESP 14–16; TEMP 36–36.7; O2SAT 97–100
[2020-08-17] MEDS: Lactated Ringers 1,000 ML 80 ML IV (07:00)
--- NOTE | 2020-08-17 07:26 | W.PM.DSUDISC ---
Discharge Plan Disposition Patient Disposition: HOME Condition: Good Discharge Details Attending Provider: Jose Antonio Payton Primary Care Provider: Charanjit Arias Home Meds and New Rx's Prescriptions: No Action sertraline 50 mg tablet 50 mg PO DAILY Qty: 90 RF: 3 atorvastatin 20 mg tablet 20 mg PO QAM RF: 0 Discharge Instructions Activity:: Activity as Tolerated Remove Dressings/Wound Care:: 24 hours Shower/Bathe:: 24 hours Diet:: As Tolerated Discharge Orders Discharge Orders: Discharge Order (Routine); Ordered 08/17/20 Ordered By: Jose Antonio Payton DS: Diagnosis Discharge Diagnosis (1) Tonsillar hypertrophy: Status: Acute (2) Peritonsillar abscess: Status: Acute
[2020-08-17] MEDS: Oxymetazolone 0.05% SPRAY 15 ML BTL (07:39)
--- NOTE | 2020-08-17 07:47 | TONSIL_PTH ---
PATIENT: Omaira Espinoza LOC: [facility] U#:[id number] AGE/SX: 50/F ROOM: RE08/17/[address]: Jose Antonio Payton DO : 1970 BED: DIS: 08/17/2020 SPEC #: [id number] RECD: 08/17/20 12:54 STATUS: DEX REQ #: [id number] DARA: 08/17/20 07:[address]: Jose Antonio Payton DEPT: Surgical Specimen RECD BY: Tiny Duvall ENTERED: 08/17/20 12:55 SP TYPE: TONSIL OTHR DR: Charanjit Arias MD Tissues: 1 - TONSIL AGE 17 & OVER 2 - TONSIL AGE 17 & OVER Procedures: GROSS AND MICRO LEVEL 3 Comments: [id number]
--- NOTE | 2020-08-17 08:08 | W.PM.OP ---
Operative Note Operative Note DATE OF PROCEDURE: 08/17/20 PRE-OP DIAGNOSIS: Chronic tonsillitis, history of peritonsillar abscess POST-OP DIAGNOSIS: same PROCEDURE: Tonsillectomy SURGEON: Jose Antonio Payton ANESTHESIA TYPE: General LMA/ETT Refer to Anesthesia Record ESTIMATED BLOOD LOSS: 1 PATHOLOGY: other COMPLICATIONS: None Patient was transported to: PACU Patient's condition: stable Indications: Pleasant female with a history of chronic tonsillitis and peritonsillar abscess, has proceeded and opted for tonsillectomy, risk and complications were discussed, consent was placed in the chart Findings: 2+ tonsils with bilateral stones Procedure Description: PROCEDURE IN DETAIL: Patient was brought back to the operating suite in stable condition, placed supine on the operating table, and intubated in normal fashion. The table was rotated 90 degrees. There was no evidence of submucosal clefting or bifid uvula. The McIvor retractor was placed in the oral cavity and suspended from the Patel stand. The right tonsil was grasped in the superior pole and medialized. Pinpoint cautery was used to develop the peritonsillar fascial plane, dissection was carried out to the upper and mid portions of the tonsil with final amputation conducted with suction cautery. There was no bleeding within the right tonsillar fossa. Next, the left tonsil was grasped in the superior pole with a curved Allis forceps and medialized. During dissection of both tonsils there was tonsil stones met bilaterally, tonsils came out nicely with no excessive bleeding. Pinpoint cautery was used to develop the peritonsillar fascial plane. Dissection was carried out in the plane in the superior and mid portion of the tonsils. Final amputation was conducted with suction cautery without bleeding within left fossa, Valsalva was performed without bleeding. TMJ's were checked and were free of dislocation. Gastric contents suctioned. The patient tolerated the procedure well and went to PACU in stable condition
[2020-08-17] MEDS: fentaNYL 100 MCG/2 ML VIAL IVP ×2 (08:20→08:30)
[2020-08-17] MEDS: ACETAMINOPHEN 1,000 MG/100 ML BTL 1000 MG (09:05)
[2020-08-17] MEDS: oxyCODONE 5 mg/Acetaminophen 325 mg TAB PO (09:28)
== END 2020-08-17 10:30 | disposition home or self-care (01) ==
PROVIDERS: PCP Family Medicine; Visit Provider Otolaryngology Otolaryngology/Facial Plastic Surgery
PROC: (CPT 42826; principal; 2020-08-17 07:30)
DX: J35.01 Chronic tonsillitis (principal)
CPT/HCPCS: 42826; 88304; J0131; J1100; J2001; J2250; J2405; J2704; J3010

== ENCOUNTER 2021-07-28 03:47 | Outpatient (CLI) | payer MEDICAID, SELFPAY ==
[2021-07-28 09:08] LABS: Cholesterol 313 mg/dL (<200); HDL Cholesterol 55 mg/dL (40-60); Triglyceride 571 mg/dL (<150)
[2021-07-28 09:18] LABS: LDL CHOLESTEROL 176 mg/dL (<100)
== END 2021-07-28 03:48 | disposition home or self-care (01) ==
LOC: LBO 03:48
PROVIDERS: PCP Family Medicine; Visit Provider Family Medicine
DX: E78.5 Hyperlipidemia, unspecified (principal)
CPT/HCPCS: 36415; 80061; 83721

== ENCOUNTER 2021-07-28 13:27 | Outpatient (REF) | payer MEDICAID, SELFPAY ==
--- NOTE | 2021-07-28 10:55 | PAPFT_PTH ---
PATIENT: Omaira Espinoza LOC: [facility] U#:[id number] AGE/SX: 51/F ROOM: RE07/28/[address]: Charanjit Arias MD : 1970 BED: DIS: 07/28/2021 SPEC #: [id number] RECD: 07/29/21 12:50 STATUS: LIONELRukhsana REQ #: [id number] DARA: 07/28/21 10:[address]: Charanjit Arias [facility]PT[facility] Cytology RECD BY: Tiny Duvall Tissues: 1 - CX/ENDOCX FOR PAP SMEARS Procedures: PAP THIN PREP/UVM Screening HPV DNA PROBE Comments: [id number]
== END 2021-07-28 13:28 | disposition home or self-care (01) ==
LOC: LBN 13:27
PROVIDERS: PCP Family Medicine; Visit Provider Family Medicine
DX: Z12.4 Encounter for screening for malignant neoplasm of cervix (principal); Z11.51 Encounter for screening for human papillomavirus (HPV)
CPT/HCPCS: 88142; 87624

== ENCOUNTER 2021-08-17 01:22 | Outpatient (CLI) | payer MEDICAID, SELFPAY ==
[2021-08-17 09:37] LABS: Estimated GFR 58.45 (mL/min/1.73m2)
[2021-08-17] MEDS: Omnipaque 350 MG/ML 100 ML BTL IJ (09:52)
[2021-08-17] MEDS: Omnipaque 350 MG/ML 50 ML BTL IJ (10:20)
--- NOTE | 2021-08-17 10:23 | DI.CT_ITS ---
Exam(s) CT ABD AORTA CTA W RUNOFF EXAM: CT ABD AORTA CTA W RUNOFF CLINICAL HISTORY: worsening moisés leg pain, M79.604, M79.605. TECHNIQUE: Imaging Protocol: Axial CT angiography was performed with multi-slice acquisition and mu lti-planar and/or 3D reconstructions. CONTRAST MATERIAL: Intravenous: Omnipaque 350 Contrast volume:125 mL Oral: No FINDINGS: Vascular Structures: Abdomen: Celiac [place]/SMA: No evidence of occlusion or significant stenosis. Renal Arteries: No evidence of occlusion or significant stenosis. There is a single renal artery perf using each kidney. Aorta: No aneurysm, occlusion or significant stenosis. No dissection. Mild atherosclerosis. Pelvis: Iliac Arteries: No evidence of occlusion or significant stenosis. Mild atherosclerosis. Lower extremities: Right: Common Femoral: No evidence of occlusion or significant stenosis. Femoral: No evidence of occlusion or significant stenosis. Deep Femoral Artery: No evidence of occlusion or significant stenosis. Popliteal: No evidence of occlusion or significant stenosis. Knee Trifurcation: No evidence of occlusion or significant stenosis. Anterior Tibial: No evidence of occlusion or significant stenosis. Posterior Tibial: No evidence of occlusion or significant stenosis. Peroneal:No evidence of occlusion or significant stenosis. Dorsalis Pedis: No evidence of occlusion or significant stenosis. Left: Common Femoral: No evidence of occlusion or significant stenosis. Femoral: No evidence of occlusion or significant stenosis. Deep femoral artery: No evidence of occlusion or significant stenosis. Popliteal: No evidence ofocclusion or significant stenosis. Knee Trifurcation: No evidence of occlusion or significant stenosis. Anterior tibial: No evidence of occlusion or significant stenosis. Posterior Tibial: No evidence of occlusion or significant stenosis. Peroneal: No evidence of occlusion or significant stenosis. Dorsalis Pedis: No evidence of occlusion or significant stenosis. Soft Tissues: Lung bases: Clear. Liver: Normal density. The hepatic cyst is shown interval increase in size measuring 4.5 x 4.0 cm. T his compares to 3.6 x 2.6 cm. Gallbladder and biliary tract: No radiodense calculus or dilation. Pancreas: Normal density, no abnormal calcifications or inflammatory process. Spleen: Normal. Kidneys: Normal size, contour and axis. No radiodense stones or obstructive uropathy. There is a stab le simple cyst in the inferior pole of the left kidney. No follow-up is recommended. Adrenal glands: No masses seen. Aorta: Abdominal portion non-dilated. Minimal atherosclerosis. No aneurysmal dilatation. Bladder: Symmetric distention, no gross wall thickening. Bowel: No obstruction or bowel wall thickening. There is diverticulosis in the colon but no evidence of acute diverticulitis. There is a normal appendix. Peritoneal cavity: No ascites, collection or mesenteric inflammatory response. No free air. Bones: Within normal limits. IMPRESSION: 1. Mild atherosclerosis of the abdominal aorta and iliac arteries. No evidence of occlusion or signi ficant stenosis of the aorta or the runoff. 2. Interval increase in size of left hepatic cyst. Currently, the cyst measures 4.5 x 4.0 cm. This compares to 3.6 x 2.6 cm. RADIATION DOSE DELIVERED: 1,279.68mGy.cm Total DLP 1,279.68mGy.cm Total DLP DATA REPOSITORY: All CT scans at this facility are submitted to the National Radiology Data Registry (NRDR) Dose Index Registry (DIR) with the [employer] (ACR). RADIATION OPTIMIZATION: All CT scans at this facility use at least one of these dose optimization te chniques: automated exposure control; mA and/or kV adjustment per patient size (includes targeted exa ms where dose is matched to clinical indication); or iterative reconstruction.
== END 2021-08-17 01:42 ==
PROVIDERS: PCP Family Medicine; Visit Provider Family Medicine
DX: I70.0 Atherosclerosis of aorta; M79.604 Pain in right leg; M79.605 Pain in left leg; K76.89 Other specified diseases of liver; N28.1 Cyst of kidney, acquired; I70.8 Atherosclerosis of other arteries; Z01.812 Encounter for preprocedural laboratory examination
CPT/HCPCS: 75635; 82565; J3490; Q9967

== ENCOUNTER 2021-08-26 00:40 | Outpatient (CLI) | payer MEDICAID, SELFPAY ==
--- NOTE | 2021-08-26 12:50 | DI.MAMMO_ITS ---
Exam(s) MAMMO SCREENING EXAM: MAMMO SCREENING CLINICAL HISTORY: screening,z12.39 TECHNIQUE: Bilateral full field digital CC and MLO mammographic images were obtained with 3D tomosyn thesis and utilizing computer aided detection (CAD). COMPARISON: Available for comparison. FINDINGS: Masses/Architectural Distortion: There is an area of asymmetric breast tissue in the central left delfina ast on the craniocaudad view. Microcalcifications: No suspicious pleomorphic-type are seen. Skin Thickening/Nipple Retraction: None. IMPRESSION: 1. Area of asymmetric breast tissue in the central left breast on the craniocaudad view. 2. This area should be further evaluated with a spot compression view. Ultrasound may be indicated a t that time. BI-RADS Category 0 - Assessment Incomplete: Need additional imaging evaluation Breast Density - Category C - Heterogeneously dense Breast density category C or D implies that the patient has dense breast tissue. Dense breast tissue is very common and is not abnormal but dense breast tissue can make it harder to find cancer on a ma mmogram. Also, dense breast tissue may increase their breast cancer risk. This information about the result of the mammogram report was provided to the patient to raise their awareness. Use this report when you speak with the patient about their risks for breast cancer, which includes their family hist ory. At that time, you may recommend for more screening tests (Ultrasound or MRI) as they might be us eful based on their risk. A negative radiographic report should not delay biopsy if a dominant or clinically suspicious mass is present. Up to ten percent of cancers are not identified on mammography. A negative report may reinforce clinical impression. Adenosis and dense breasts may obscure an underlying neoplasm. False positive reports average 6 to 10%. Patient will receive a letter notifying them of these results.
== END 2021-08-26 01:00 ==
PROVIDERS: PCP Family Medicine; Visit Provider Family Medicine
DX: Z12.31 Encounter for screening mammogram for malignant neoplasm of breast (principal); R92.8 Other abnormal and inconclusive findings on diagnostic imaging of breast
CPT/HCPCS: 77063; 77067

== ENCOUNTER 2021-09-06 01:12 | Outpatient (CLI) | payer MEDICAID, SELFPAY ==
--- NOTE | 2021-09-06 10:30 | DI.MAMMO_ITS ---
Exam(s) MAMMO SCREEN CALL BACK UNI EXAM: MAMMO SCREEN CALL BACK UNI CLINICAL HISTORY: F/U ABNL MAMMO, ASYMMETRIC TISSUE IN CENTRAL LT BREAST ON CC VIEW TECHNIQUE: Spot compression views and tomographic imaging were performed. COMPARISON: 2011 through 2019 and 26 August 2021 FINDINGS: No suspicious masses or suspicious microcalcifications are seen. No persistent abnormality is seen on the additional views performed. The findings are consistent wit h overlying fibroglandular tissue. There has been no significant change from prior exams. IMPRESSION: BI-RADS Category 1, Negative Yearly screening mammography is recommended. Breast Density - Category B, scattered fibroglandular densities.
== END 2021-09-06 01:32 ==
PROVIDERS: PCP Family Medicine; Visit Provider Family Medicine
DX: Z12.31 Encounter for screening mammogram for malignant neoplasm of breast (principal); R92.8 Other abnormal and inconclusive findings on diagnostic imaging of breast; N64.59 Other signs and symptoms in breast
CPT/HCPCS: 77063; 77067

== ENCOUNTER 2021-11-30 10:52 | Outpatient (CLI) | payer MEDICAID, SELFPAY ==
[2021-11-30 12:53] LABS: LDL CHOLESTEROL 148 mg/dL (<100); TSH (W/Ref FT4) 2.32 uIU/mL (0.36-3.74); Triglyceride 205 mg/dL (<150)
== END 2021-11-30 10:53 | disposition home or self-care (01) ==
LOC: LOS 10:52
PROVIDERS: PCP Family Medicine; Referring Provider Family Medicine; Visit Provider Family Medicine
DX: E03.9 Hypothyroidism, unspecified (principal); E78.5 Hyperlipidemia, unspecified; E78.1 Pure hyperglyceridemia
CPT/HCPCS: 36415; 83721; 84443; 84478

== ENCOUNTER 2021-12-22 10:53 | Emergency (ER) | payer MEDICAID, SELFPAY ==
[2021-12-22 10:57] VITALS: BP 181/96; PULSE 69; RESP 16; TEMP 37.4; O2SAT 100
--- NOTE | 2021-12-22 11:12 | ED.GENADUL_ITS ---
Discharge Plan Disposition Patient Disposition: HOME Condition: Improving Discharge Details Clinical Impression: Back pain, Hypokalemia Primary Care Provider: Charanjit Arias ED Provider: Oral Thompson Home Meds and New Rx's Prescriptions: Continued atorvastatin 40 mg tablet 40 mg PO DAILY Qty: 90 3RF fenofibrate nanocrystallized [Tricor] 145 mg tablet 145 mg PO DAILY Qty: 90 3RF Prempro 0.3-1.5 mg tablet 1 tab PO DAILY Qty: 84 2RF Discharge Instructions Additional Instructions: Your urinalysis and blood work do not reveal any obvious source of your back pain. Your potassium level was low, we could give a single dose here in the ER, and as we discussed I would increase your potassium intake over the next several days. In the meantime we will treat your discomfort as musculoskeletal pain. Rest, gentle stretching as tolerated, cool and/or warm compresses every 2 hours for 20 minutes. [id number] Tylenol and/or Motrin as directed for discomfort. Please watch for new or worsening symptoms and return to the ER for any concerns. I would like you to contact your primary care provider later today or tomorrow to discuss your ER visit and need for outpatient reevaluation of both your back pain and potassium levels. Discharge Data Discharge Date/Time-TO BE ENTERED AT DEPARTURE: 12/22/21 13:00 Medical Decision Making 51-year-old female presents for right-sided back pain for the past 4 days, worse with movement, responding to Tylenol and Motrin. She denies fever, trauma, abdominal pain, nausea, vomiting, dysuria, hematuria vaginal bleeding or discharge. Clinically it certainly appears as though it could be musculoskeletal but given her lack of previous back pain or obvious trauma, plan is to obtain CBC, CMP, assess for potential infection, renal function, LFTs, etc. as well as obtain a urinalysis. Patient provided with 30 IV Toradol and upon reevaluation reports the pain has almost completely resolved with the Toradol. She remains neurologically intact, no evidence of cauda equina. No midline point tenderness. No fever, denies IV drug use. Laboratory values reveal a potassium of 3.0, otherwise unremarkable. She has no evidence of leukocytosis, hematuria, etc. LFTs unremarkable. 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 I will provide 40 p.o. potassium now we did discuss the importance of increasing potassium intake as well as having her levels rechecked through her PCP in the next week. Given her overall benign work-up, response to Toradol, I see no clear indication to initiate advanced imaging such as ultrasound and or CT. Patient is comfortable with this and will treat as musculoskeletal and follow-up with PCP next week. Standard discharge and return precautions were provided. Patient understands, is agreeable to this plan, and has no additional questions or concerns upon discharge. This documentation was generated using [employer] system, please disregard any oddities of phrase or misspellings. Medical Records Medical records reviewed: Yes I reviewed the patient's medical records. Lab Data Lab results reviewed: Yes I reviewed the patient's lab results. Labs: Laboratory Tests Range/Units 12/22/21 12/22/21 12/22/21 11:04 11:43 11:43 WBC (4.4-10.8) 10^3/uL 7.60 RBC (3.93-5.22) 10^6/uL 4.07 Hgb (11.2-15.7) g/dL 13.0 Hct (36.0-46.0) % 37.7 MCV (80-95) fL 93 MCH (27.0-33.0) pg 31.9 MCHC (32.0-36.0) % 34.5 RDW (11.7-14.6) % 13.7 Plt Count (130-400) 10^3/uL 305 MPV (8.0-11.0) fL 10.9 Immature Gran % 0.4 Neutrophils % 74.2 Lymphocytes % 16.7 Monocytes % 7.4 Eosinophils % 0.5 Basophils % 0.8 Nucleated RBC % (0.0-0.3) % 0.0 Absolute Neutrophils (1.2-6.7) 10^3/uL 5.64 Absolute Lymphocytes (1.2-3.4) 10^3/uL 1.27 Absolute Monocytes (0.1-0.8) 10^3/uL 0.56 Absolute Eosinophils (0.0-0.7) 10^3/uL 0.04 Absolute Basophils (0.0-0.2) 10^3/uL 0.06 Sodium (136-145) mmol/L 141 Potassium (3.5-5.1) mmol/L 3.0 L Chloride (98-107) mmol/L 104 Carbon Dioxide (21.0-32.0) mmol/L 25.6 Anion Gap (3-11) mmol/L 11.4 H BUN (7-18) mg/dL 11 Creatinine (0.55-1.02) mg/dL 1.0 Estimated GFR/1.73 m2 (mL/min/1.73m2) 58.45 Glucose (74-106) mg/dL 113 H Calcium (8.5-10.1) mg/dL 9.0 Total Bilirubin (0.2-1.0) mg/dL 0.3 AST (15-37) U/L 30 ALT (14-59) U/L 41 Alkaline Phosphatase (46-116) U/L 55 Total Protein (6.4-8.2) g/dL 7.8 Albumin (3.4-5.0) g/dL 3.9 Lipase (73-393) U/L 115 Urine Color (Yellow) Yellow Urine Clarity (Clear) Sl Cloudy Urine pH (5-8) 6.5 Ur Specific Ewing (1.005-1.025) 1.010 Urine Protein (Negative) mg/dL Negative Urine Ketones (Negative) mg/dL Negative Urine Blood (Negative) Negative Urine Nitrite (Negative) Negative Urine Bilirubin (Negative) Negative Urine Urobilinogen (Up TO 0.2) EU/dL 0.2 Ur Leukocyte Esterase (Negative) Negative Urine Glucose (Negative) mg/dL Negative HPI General Mode of arrival: ambulatory . Date/Time Provider Initiated Documentation: 12/22/21 10:54 . Limitations to Documentation: no limitations . Information obtained by: patient . History of Present Illness 51 year old F presents to the emergency department with the chief complaint of R back pain, described as moderate, with intensity rated at 5. Quality is described as aching, and is localized to the back and right. Patient reports no radiation. Patient started experiencing this day(s) (4) and it has been constant. No relieving factors improve symptom(s), Movement worsens symptoms . Patient notes no other symptoms.. Patient did receive the following treatments prior to arrival, NSAID Related Data Home Medications Medication Instructions Recorded Confirmed atorvastatin 40 mg tablet 40 mg PO DAILY #90 tabs 07/28/21 12/22/21 fenofibrate nanocrystallized 145 145 mg PO DAILY #90 tabs 07/31/21 12/22/21 mg tablet (Tricor) conj estrogen-medroxyprogesterone 1 tab PO DAILY #84 tabs 10/01/21 12/22/21 0.3 mg-1.5 mg tablet (Prempro) Previous Rx's Medication Instructions Recorded atorvastatin 40 mg tablet 40 mg PO DAILY #90 tabs 07/28/21 fenofibrate nanocrystallized 145 145 mg PO DAILY #90 tabs 07/31/21 mg tablet (Tricor) conj estrogen-medroxyprogesterone 1 tab PO DAILY #84 tabs 10/01/21 0.3 mg-1.5 mg tablet (Prempro) Allergies Allergy/AdvReac Type Severity Reaction Status Date / Time trazodone AdvReac Intermediate Headache Verified 12/22/21 11:01 codeine [Codeine] AdvReac heart Verified 12/22/21 11:01 racing lidocaine AdvReac heart Verified 12/22/21 11:01 racing General Stated Complaint: FlankPain GLORIA: 3 Review of Systems Constitutional Constitutional: Denies fever(s) Cardiovascular Cardiovascular: Denies chest pain and Denies dyspnea Respiratory Respiratory: Denies cough and Denies dyspnea Gastrointestinal Gastrointestinal: Denies abdominal pain, Denies constipation, Denies diarrhea, Denies nausea and Denies vomiting Genitourinary Genitourinary: Denies abnormal vaginal bleeding, Denies dysuria and Denies vaginal discharge Musculoskeletal Musculoskeletal: Reports back pain Integumentary/Breasts Skin/Breast: Denies rash PFSH All Active Problems (Updated 12/22/21 @ 12:45 by EMILEE Hager) Back pain (Acute) Hypokalemia (Acute) Hyperlipidemia LDL goal <130 (Acute) Elevated blood pressure reading without diagnosis of hypertension (Acute) C. difficile colitis (Acute) Left lower quadrant pain (Acute) Depression (Chronic) Dizziness (Acute) Hot flashes (Acute) Tobacco abuse (Acute) Leg pain, bilateral (Acute) Upper respiratory infection (Acute) Ovarian mass, right (Acute) we will get u/s, as suggested tylenol as needed for pain Medical History Peritonsillar abscess Tonsillar hypertrophy Surgical History HYSTERECTOMY Supracervical Ligation of fallopian tube Family History Mother Hyperlipidemia Father Essential hypertension Sister No problems noted. Brother Hyperlipidemia Grandfather No problems noted. Grandfather Personal history of malignant neoplasm COLON Grandmother No problems noted. Grandmother Personal history of malignant neoplasm PANCREATIC Social History Smoking/Tobacco Use Status: Current every day Tobacco Type: cigarettes Tobacco: How many years used: 35 Quit status: has quit before Second Hand Exposure: Yes Smoking risk assessment performed?: Yes Alcohol Intake: current Alcohol Intake frequency: holidays/special occasions only Alcohol type: beer Drug use: Occasionally Substance use type: marijuana Details: Hasnt smoked since 08/15/20. 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 Pets and animals: Yes Pets and animals: dog(s) Sexually active: Yes Do you think of yourself as: straight/heterosexual Current gender identity: female What is your relationship status?: How often do you talk on the phone with friends or family?: three or more times per week How often do you get together with friends or relatives?: once per week How often do you attend jainism or hindu services?: decline to answer Do you belong to any clubs or organized social groups?: no Panel score (0-1 are the most socially isolated patients): 2 What type of physical activity do you participate in: weight lifting Duration: 30-45 minutes/day Frequency: 3-4 times per week Special agustin needs: No Seatbelt use: sometimes Helmet use: No Drive intox or ride w/intox commercial collections driver: No Do you feel safe at home: Yes Do you feel safe in your relationship?: Yes Exam Const General: cooperative, healthy appearing, comfortable and no acute distress Orientation: alert and awake [facility] Head: normal to inspection, normocephalic and atraumatic Eyes Conjunctivae: conjunctivae normal Neck Neck: normal visual inspection, full ROM, trachea midline and supple Resp Effort & Inspection: normal respiratory effort and able to speak in complete sentences Auscultation: clear to auscultation bilaterally Cardio Rate: regular rate Rhythm: regular rhythm GI Palpation: soft, not firm, no guarding, no pulsatile masses and nontender Back/Spine/Pelvis Back: no CVA tenderness and back tenderness (Diffuse, mild right lumbar discomfort) Skin General skin exam: no rashes or lesions noted Neuro General: patient alert, patient awake, moves all extremities and no focal motor deficits Cognition: normal cognition Speech: speech normal Gait: normal gait Motor: muscle tone normal throughout Sensory Exam: no sensory deficits noted Extrem General: normal to inspection, full ROM, capillary refill normal and no pedal edema Psych Appearance: grossly normal Mental Status: mental status grossly normal Course Vital Signs Vital signs: Vital Signs Temperature 37.4 C 12/22/21 10:57 Pulse 69 12/22/21 10:57 Respiratory Rate 16 12/22/21 10:57 Blood Pressure 181/96 H 12/22/21 10:57 Pulse Oximetry 100 12/22/21 10:57 Temperature 37.4 C 12/22/21 10:57 Temperature Source Skin 12/22/21 10:57 Pulse 69 12/22/21 10:57 Respiratory Rate 16 12/22/21 10:57 Respiratory Effort Non-Labored 12/22/21 11:01 Blood Pressure 181/96 H 12/22/21 10:57 Blood Pressure Position Sitting 12/22/21 10:57 Pulse Oximetry 100 12/22/21 10:57 Oxygen Delivery Method Room Air 12/22/21 10:57 Oxygen Flow Rate 0 12/22/21 10:57 Pain Level 6 12/22/21 10:57
[2021-12-22 11:16] LABS: Bilirubin Negative (Negative); Blood Negative (Negative); Clarity Sl Cloudy (Clear); Glucose Negative (Negative); Ketones Negative (Negative); Leukocyte Esterase Negative (Negative); Nitrite Negative (Negative); Urobilinogen 0.2 EU/dL (Up TO 0.2); pH 6.5 (5-8)
[2021-12-22] MEDS: Ketorolac 30 MG/ML VIAL IVP (11:44)
[2021-12-22 11:48] LABS: Abs Immature Grans 0.03 10^3/uL (0.0-0.06); Absolute Basophil Count 0.06 10^3/uL (0.0-0.2); Absolute Eosinophil Count 0.04 10^3/uL (0.0-0.7); Absolute Lymphocyte Count 1.27 10^3/uL (1.2-3.4); Absolute Monocyte Count 0.56 10^3/uL (0.1-0.8); Absolute Neutrophil Count 5.64 10^3/uL (1.2-6.7); Basophils % 0.8; Eosinophils % 0.5; HCT 37.7 % (36.0-46.0); Immature Grans % 0.4; Lymphocytes % 16.7; MCH 31.9 pg (27.0-33.0); MCHC 34.5 % (32.0-36.0); MCV 93 fL (80-95); MPV 10.9 fL (8.0-11.0); Monocytes % 7.4; Neutrophils % 74.2; Platelet Count 305 10^3/uL (130-400); RBC 4.07 10^6/uL (3.93-5.22); RDW 13.7 % (11.7-14.6); RDW-SD 46.6 fL
[2021-12-22 12:07] LABS: ALT 41 U/L (14-59); AST 30 U/L (15-37); Albumin 3.9 g/dL (3.4-5.0); Alkaline Phosphatase 55 U/L (46-116); BUN 11 mg/dL (7-18); Bilirubin, Total 0.3 mg/dL (0.2-1.0); CO2 25.6 mmol/L (21.0-32.0); Estimated GFR 58.45 (mL/min/1.73m2); Glucose 113 mg/dL (74-106); Lipase 115 U/L (73-393); Total Protein 7.8 g/dL (6.4-8.2)
[2021-12-22 12:17] LABS: Anion Gap 11.4 mmol/L (3-11); Chloride 104 mmol/L (98-107); Sodium 141 mmol/L (136-145)
--- NOTE | 2021-12-22 12:33 | CMPROGNOTE_ITS ---
- If Service Date Differs Date of service: 12/22/21 Time of Service: 12:33 Care Management Progress Note SBIRT screen: positive for nicotine, alcohol moderate (AUDIT 17) anxiety (ELIZA 9). Brief intervention, Pt states she wants to quit smoking and is considering cutting down alcohol use. Pt reports she has tried several medications for anxiety management but no counseling. We discussed alternatives that might be helpful with alxiety and alcohol use including counseling, mindfulness pract ices, recovery coaching. Pt was provided with resources for nicotine cessation, recovery coaching, counseling and the 24 hour number for crisis as needed for support with anxiety. Pt was encouraged to consult with her PCP regarding counseling and other supports.
[2021-12-22] MEDS: Potassium Chloride 20 MEQ TABCR 40 MEQ PO (12:55)
[2021-12-22 12:56] VITALS: BP 156/88; PULSE 82; RESP 18; TEMP 37.3; O2SAT 98
== END 2021-12-22 13:00 | disposition home or self-care (01) ==
PROVIDERS: Emergency Provider Physician Assistant; PCP Family Medicine
DX: M54.9 Dorsalgia, unspecified (principal); E87.6 Hypokalemia; F17.210 Nicotine dependence, cigarettes, uncomplicated
CPT/HCPCS: 36415; 80053; 83690; 96374; 99284; 81003; 85025; J1885

== ENCOUNTER 2022-08-29 00:12 | Outpatient (CLI) | payer MEDICAID, SELFPAY ==
--- NOTE | 2022-08-29 12:20 | DI.MAMMO_ITS ---
Exam(s) MAMMO SCREENING EXAM: MAMMO SCREENING CLINICAL HISTORY: screening,z12.39 TECHNIQUE: Bilateral full field digital CC and MLO mammographic images were obtained with 3D tomosyn thesis and utilizing computer aided detection (CAD). COMPARISON: Available for comparison. FINDINGS: Masses/Architectural Distortion: None seen. Microcalcifications: No suspicious pleomorphic-type are seen. Skin Thickening/Nipple Retraction: None. IMPRESSION: 1. No significant interval change with no specific features of malignancy noted. 2. Unless there is more urgent need, screening mammography is recommended, as per [place] [employer] guidelines. BI-RADS Category 1 - Negative Breast Density - Category C - Heterogeneously dense Breast density category C or D implies that the patient has dense breast tissue. Dense breast tissue is very common and is not abnormal but dense breast tissue can make it harder to find cancer on a ma mmogram. Also, dense breast tissue may increase their breast cancer risk. This information about the result of the mammogram report was provided to the patient to raise their awareness. Use this report when you speak with the patient about their risks for breast cancer, which includes their family hist ory. At that time, you may recommend for more screening tests (Ultrasound or MRI) as they might be us eful based on their risk. A negative radiographic report should not delay biopsy if a dominant or clinically suspicious mass is present. Up to ten percent of cancers are not identified on mammography. A negative report may reinforce clinical impression. Adenosis and dense breasts may obscure an underlying neoplasm. False positive reports average 6 to 10%. Patient will receive a letter notifying them of these results.
== END 2022-08-29 00:32 ==
LOC: DI 00:13
PROVIDERS: PCP Family Medicine; Visit Provider Family Medicine
DX: Z12.31 Encounter for screening mammogram for malignant neoplasm of breast (principal)
CPT/HCPCS: 77063; 77067

== ENCOUNTER 2022-08-30 08:38 | Emergency (ER) | payer MEDICAID, SELFPAY ==
[2022-08-30 08:41] VITALS: BP 190/106; PULSE 85; RESP 18; TEMP 37; O2SAT 95
--- NOTE | 2022-08-30 08:45 | DI.CT_ITS ---
Exam(s) CT ABDOMEN PELVIS W EXAM: CT ABDOMEN PELVIS W CLINICAL HISTORY: suprapubic pain and LLQ pain, hx of divertic. TECHNIQUE: Imaging Protocol: Axial computed tomography images with coronal and sagittal reformatted images were created and reviewed CONTRAST MATERIAL: Intravenous: Omnipaque-350 100cc Oral: None COMPARISON: CT CT ABD AORTA CTA W RUNOFF from 08/17/2021 FINDINGS: VISUALIZED LUNG BASES: No nodules nor pleural effusions evident. ABDOMEN: There is no ascites. LIVER: There is again noted a prominent cysts in the right hepatic lobe just medial to the gallbladde r fossa, unchanged and measuring 4.8 cm by 3.8 cm. No new additional cysts in the liver evident. Castellon btle benign-appearing enhancing area posteriorly in the right hepatic lobe is possibly an hemangioma. . No dilated intrahepatic ducts. GALLBLADDER/BILIARY: The gallbladder is slightly compressed by the adjacent liver cysts described abo ve. No obvious gallstones nor gallbladder wall edema. CBD not dilated. No PANCREAS: No evidence of pancreatic mass nor dilatation of the pancreatic duct. SPLEEN: Spleen is not enlarged. No obvious intrasplenic lesions. Splenic and portal veins are paten t. ADRENALS: There are no significant adrenal masses. KIDNEYS:No cysts evident. No solid renal masses. No calculi nor hydronephrosis.. ABDOMINAL AORTA: Abdominal aorta is not enlarged. LYMPH NODES:There is no retroperitoneal nor paraaortic adenopathy. ABDOMINAL WALL: No evidence of significant anterior abdominal wall nor inguinal hernia. GI: No evidence of bowel obstruction. PELVIS: GI: No evidence of appendicitis.Extensive sigmoid diverticulosis again noted. There is also circumfe rential long segment wall thickening in the sigmoid. However, there is now perisigmoid streaking con sistent with acute inflammatory findings-diverticulitis. There is no evidence of abscess nor fistulo us communication to the adjacent urinary bladder at this time. LYMPH NODES: There is no intrapelvic nor inguinal adenopathy. REPRODUCTIVE: Air is seen within the endometrial canal as well as in the cervix and vagina. This of questionable significance. URINARY BLADDER: No masses nor calculi. No gas in the lumen to suggest fistulous communication from the diverticulitis of the adjacent sigmoid. OSSEOUS: No fractures and no significant osseous lesions. Benign bone island in the right iliac wing is unchanged from prior study. IMPRESSION: 1. Extensive sigmoid diverticulosis with evidence of acute sigmoid diverticulitis. No abscess nor ev idence of fistulous communication at this time. No gas in the portal venous system. 2. Stable cyst in the liver adjacent to the gallbladder fossa, this measuring approximately 3.8 x 4.8 cm. 3. No evidence of acute appendicitis. Called by myself to ER physician RADIATION DOSE DELIVERED: 1,107.18mGy.cm Total DLP DATA REPOSITORY: All CT scans at this facility are submitted to the National Radiology Data Registry (NRDR) Dose Index Registry (DIR) with the [employer] (ACR). RADIATION OPTIMIZATION: All CT scans at this facility use at least one of these dose optimization te chniques: automated exposure control; mA and/or kV adjustment per patient size (includes targeted exa ms where dose is matched to clinical indication); or iterative reconstruction.
[2022-08-30] MEDS: Normal Saline 1,000 ML 1000 ML IV (09:31)
[2022-08-30] MEDS: ACETAMINOPHEN 1,000 MG/100 ML BTL 400 MG IVPB (09:31)
[2022-08-30 09:33] LABS: Abs Immature Grans 0.02 10^3/uL (0.0-0.06); Absolute Basophil Count 0.05 10^3/uL (0.0-0.2); Absolute Eosinophil Count 0.05 10^3/uL (0.0-0.7); Absolute Lymphocyte Count 1.24 10^3/uL (1.2-3.4); Absolute Monocyte Count 0.68 10^3/uL (0.1-0.8); Absolute Neutrophil Count 6.22 10^3/uL (1.2-6.7); Basophils % 0.6; Eosinophils % 0.6; HCT 41.7 % (36.0-46.0); HGB 13.8 g/dL (11.2-15.7); Immature Grans % 0.2; Lactate 1.4 mmol/L (0.6-1.4); MCH 30.3 pg (27.0-33.0); MCHC 33.1 % (32.0-36.0); MCV 92 fL (80-95); Monocytes % 8.2; Neutrophils % 75.4; Platelet Count 369 10^3/uL (130-400); RBC 4.55 10^6/uL (3.93-5.22); RDW 13.3 % (11.7-14.6); RDW-SD 45.7 fL; WBC 8.26 10^3/uL (4.4-10.8)
[2022-08-30 09:54] LABS: ALT 23 U/L (14-59); AST 16 U/L (15-37); Albumin 4.1 g/dL (3.4-5.0); Alkaline Phosphatase 77 U/L (46-116); Anion Gap 4.3 mmol/L (3-11); BUN 12 mg/dL (7-18); Bilirubin, Total 0.4 mg/dL (0.2-1.0); CO2 25.7 mmol/L (21.0-32.0); Calcium 9.7 mg/dL (8.5-10.1); Chloride 104 mmol/L (98-107); Estimated GFR 67.78 (mL/min/1.73m2); Glucose 102 mg/dL (74-106); Lipase 42 U/L (16-77); Potassium 3.6 mmol/L (3.5-5.1); Sodium 134 mmol/L (136-145); Total Protein 8.8 g/dL (6.4-8.2)
--- NOTE | 2022-08-30 09:56 | ED.GENADUL_ITS ---
Discharge Plan Disposition Patient Disposition: Home Condition: Good Discharge Details Clinical Impression: Diverticulitis, Colon wall thickening Primary Care Provider: Charanjit Arias ED Provider: Constantin Canseco Home Meds and New Rx's Prescriptions: New ciprofloxacin HCl [Cipro] 500 mg tablet 500 mg PO BID 10 Days Qty: 20 0RF metronidazole 500 mg tablet 500 mg PO TID 10 Days Qty: 30 0RF Continued omeprazole magnesium [Prilosec OTC] 20 mg tablet,delayed release (DR/EC) 20 mg PO DAILY Qty: 90 3RF mirtazapine [Remeron] 15 mg tablet 15 mg PO DAILY Qty: 90 3RF Prempro 0.3-1.5 mg tablet 1 tab PO DAILY Qty: 84 2RF metoprolol succinate 25 mg tablet extended release 24 hr 25 mg PO DAILY Qty: 90 3RF atorvastatin 40 mg tablet 40 mg PO DAILY Qty: 90 3RF fenofibrate nanocrystallized [Tricor] 145 mg tablet 145 mg PO DAILY Qty: 90 3RF Discharge Instructions Instructions: Ciprofloxacin (By mouth), Metronidazole (By mouth), Diverticulitis (ED) Additional Instructions: As we discussed together at this time your CAT scan shows evidence of diverticulitis. There is please take the antibiotic as directed. It has been sent to your pharmacy on file. Please follow-up closely with your primary care provider to discuss colonoscopy, as there was notable thickening throughout your colon and this can be concerning for cancer. However you will need to have resolution of your inflammatory state of diverticulitis before this is performed. Please take Tylenol and Motrin as needed for pain. Stick with a bland easy diet of soup, liquids, applesauce, bananas. Please avoid any foods with seeds that are small like blueberries or strawberries or raspberries. If you notice any worsening of your symptoms, or any new symptoms such as vomiting, diarrhea, fever, chills, shortness of breath, chest pain, numbness, weakness, or fainting , please return immediately to the emergency department for reevaluation. Please follow up with your primary care provider as soon as possible for reassessment and reevaluation. As always, it was a pleasure participating in your medical care today. Referrals: Charanjit Arias MD [Primary Care Provider] - Medical Decision Making 52-year-old female with a past medical history of diverticulitis, previous C. difficile colitis, high cholesterol, hypertension, adjustment disorder, depression, previous ovarian mass on the right, hysterectomy, and pre vious tubal ligation, presents today for evaluation of abdominal pain. Patient states that for the last week she has had waxing and waning abdominal pain which she describes as achy, in the suprapubic region, slightly radiating to the left. Pain is made worse with movement. Improved by nothing. No associated urinary symptoms. No diarrhea or blood in her stool. No vomiting. She has taken some ibuprofen but this has not improved her symptoms. She denies any other complaints. Symptoms feel similar to previous diverticulitis. No other complaints at this time. No other modifying factors. Physical exam demonstrates left lower and suprapubic abdominal pain, left obturator sign, left CVA tenderness. Differential at this time is highest for diverticulitis, kidney stone, pyelonephritis. Patient was offered morphine for pain control but has refused, we will give of her meth, get a CT scan, monitor closely and reassess. 11:31 AM On reassessment the patient is feeling somewhat better. Laboratory work-up is notably stable. No significant white count or bandemia. CT scan shows colonic thickening and diverticulitis. No evidence of perforation or abscess. Patient remains hemodynamically stable. At this time her symptoms correlate clinically with diverticulitis as well. Patient feels well. I did discuss options of inpatient admission versus discharge and at this time through shared decision- making process patient feels comfortable with discharge prefer that direction. We will give Cipro Flagyl here, with plan for discharge. Prescription for Cipro Flagyl will be sent to her pharmacy on file. I did discuss symptoms for which to monitor for and that she can return anytime if her symptoms continue or worsen. I also discussed the importance of having a colonoscopy in the near future especially as there is some thickening noted on her CT scan. During the discussions with this with her she did state that her family doctor recommended this just this past week, but she had declined at that time. She will reassess her options now. Discussed red flags which to return. I have extensively reviewed the treatment plan and discharge instructions with the patient. I have addressed all patient concerns at this time. The patient was made aware of what symptoms to monitor for that would warrant a return to the emergency department. Discussed the plan with the patient, they demonstrate verbal understanding and agreement with our assessment and plan at this time. The documentation in this chart was dictated using [employer] dictation software. Please excuse any dictation errors. FINDINGS: VISUALIZED LUNG BASES: No nodules nor pleural effusions evident. ABDOMEN: There is no ascites. LIVER: There is again noted a prominent cysts in the right hepatic lobe just medial to the gallbladder fossa, unchanged and measuring 4.8 cm by 3.8 cm. No new additional cysts in the liver evident. Subtle benign-appearing enhancing area posteriorly in the right hepatic lobe is possibly an hemangioma.. No dilated intrahepatic ducts. GALLBLADDER/BILIARY: The gallbladder is slightly compressed by the adjacent liver cysts described above. No obvious gallstones nor gallbladder wall edema. CBD not dilated. No PANCREAS: No evidence of pancreatic mass nor dilatation of the pancreatic duct. SPLEEN: Spleen is not enlarged. No obvious intrasplenic lesions. Splenic and portal veins are patent. ADRENALS: There are no significant adrenal masses. KIDNEYS:No cysts evident. No solid renal masses. No calculi nor hydronephrosis.. ABDOMINAL AORTA: Abdominal aorta is not enlarged. LYMPH NODES:There is no retroperitoneal nor paraaortic adenopathy. ABDOMINAL WALL: No evidence of significant anterior abdominal wall nor inguinal hernia. GI: No evidence of bowel obstruction. PELVIS: GI: No evidence of appendicitis.Extensive sigmoid diverticulosis again noted. There is also circumferential long segment wall thickening in the sigmoid. However, there is now perisigmoid streaking consistent with acute inflammatory findings-diverticulitis. There is no evidence of abscess nor fistulous communication to the adjacent urinary bladder at this time. LYMPH NODES: There is no intrapelvic nor inguinal adenopathy. REPRODUCTIVE: Air is seen within the endometrial canal as well as in the cervix and vagina. This of questionable significance. URINARY BLADDER: No masses nor calculi. No gas in the lumen to suggest fistulous communication from the diverticulitis of the adjacent sigmoid. OSSEOUS: No fractures and no significant osseous lesions. Benign bone island in the right iliac wing is unchanged from prior study. IMPRESSION: 1. Extensive sigmoid diverticulosis with evidence of acute sigmoid diverticulitis. No abscess nor evidence of fistulous communication at this time. No gas in the portal venous system. 2. Stable cyst in the liver adjacent to the gallbladder fossa, this measuring approximately 3.8 x 4.8 cm. 3. No evidence of acute appendicitis. HPI General Date/Time Provider Initiated Documentation: 08/30/22 08:44 . HPI Narrative: 52-year-old female with a past medical history of diverticulitis, previous C. difficile colitis, high cholesterol, hypertension, adjustment disorder, depression, previous ovarian mass on the right, hysterectomy, and previous tubal ligation, presents today for evaluation of abdominal pain. Patient states that for the last week she has had waxing and waning abdominal pain which she describes as achy, in the suprapubic region, slightly radiating to the left. Pain is made worse with movement. Improved by nothing. No associated urinary symptoms. No diarrhea or blood in her stool. No vomiting. She has taken some ibuprofen but this has not improved her symptoms. She denies any other complaints. Symptoms feel similar to previous diverticulitis. No other complaints at this time. No other modifying factors. Related Data Home Medications Medication Instructions Recorded Confirmed mirtazapine 15 mg tablet (Remeron) 15 mg PO DAILY #90 tabs 03/10/22 08/03/22 conj estrogen-medroxyprogesterone 1 tab PO DAILY #84 tabs 07/11/22 08/03/22 0.3 mg-1.5 mg tablet (Prempro) metoprolol succinate 25 mg 25 mg PO DAILY #90 tabs 07/15/22 08/03/22 tablet,extended release 24 hr omeprazole magnesium 20 mg 20 mg PO DAILY #90 tabs 08/03/22 08/03/22 tablet,delayed release (Prilosec OTC) atorvastatin 40 mg tablet 40 mg PO DAILY #90 tabs 08/22/22 fenofibrate nanocrystallized 145 145 mg PO DAILY #90 tabs 08/22/22 mg tablet (Tricor) ciprofloxacin HCl 500 mg tablet 500 mg PO BID 10 days #20 tabs 08/30/22 (Cipro) metronidazole 500 mg tablet 500 mg PO TID 10 days #30 tabs 08/30/22 Previous Rx's Medication Instructions Recorded mirtazapine 15 mg tablet (Remeron) 15 mg PO DAILY #90 tabs 03/10/22 conj estrogen-medroxyprogesterone 1 tab PO DAILY #84 tabs 07/11/22 0.3 mg-1.5 mg tablet (Prempro) metoprolol succinate 25 mg 25 mg PO DAILY #90 tabs 07/15/22 tablet,extended release 24 hr omeprazole magnesium 20 mg 20 mg PO DAILY #90 tabs 08/03/22 tablet,delayed release (Prilosec OTC) atorvastatin 40 mg tablet 40 mg PO DAILY #90 tabs 08/22/22 fenofibrate nanocrystallized 145 145 mg PO DAILY #90 tabs 08/22/22 mg tablet (Tricor) ciprofloxacin HCl 500 mg tablet 500 mg PO BID 10 days #20 tabs 08/30/22 (Cipro) metronidazole 500 mg tablet 500 mg PO TID 10 days #30 tabs 08/30/22 Allergies Allergy/AdvReac Type Severity Reaction Status Date / Time losartan Allergy Intermediate angioedema Verified 08/03/22 09:25 trazodone AdvReac Intermediate Headache Verified 08/03/22 09:25 codeine [Codeine] AdvReac heart Verified 08/03/22 09:25 racing lidocaine AdvReac heart Verified 08/03/22 09:25 racing General Stated Complaint: Abd Prob GLORIA: 3 Review of Systems All systems reviewed & are unremarkable except as noted in HPI and below PFSH All Active Problems (Updated 08/30/22 @ 11:29 by Constantin Canseco DO) Diverticulitis (Chronic) Colon wall thickening (Acute) Adjustment disorder with anxious mood (Acute) Essential hypertension (Acute) Hyperlipidemia LDL goal <130 (Acute) C. difficile colitis (Acute) Left lower quadrant pain (Acute) Depression (Chronic) Dizziness (Acute) Hot flashes (Acute) Tobacco abuse (Acute) Leg pain, bilateral (Acute) Upper respiratory infection (Acute) Ovarian mass, right (Acute) we will get u/s, as suggested tylenol as needed for pain Medical History Peritonsillar abscess Tonsillar hypertrophy Surgical History HYSTERECTOMY Supracervical Ligation of fallopian tube Family History Mother Hyperlipidemia Father Essential hypertension Sister No problems noted. Brother Hyperlipidemia Grandfather No problems noted. Grandfather Personal history of malignant neoplasm COLON Grandmother No problems noted. Grandmother Personal history of malignant neoplasm PANCREATIC Social History Smoking/Tobacco Use Status: Current every day Tobacco Type: cigarettes Tobacco: How many years used: 35 Quit status: has quit before Second Hand Exposure: Yes Smoking risk assessment performed?: Yes Alcohol Intake: current Alcohol Intake frequency: a few times a month Alcohol type: beer Drug use: Rarely Substance use type: marijuana Details: Hasnt smoked since 08/15/20. 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 Pets and animals: Yes Pets and animals: dog(s) Sexually active: Yes Do you think of yourself as: straight/heterosexual Current gender identity: female What is your relationship status?: How often do you talk on the phone with friends or family?: twice per week How often do you get together with friends or relatives?: twice per week How often do you attend scientologist or moravian services?: decline to answer Do you belong to any clubs or organized social groups?: no Panel score (0-1 are the most socially isolated patients): 2 What type of physical activity do you participate in: walking Duration: 15-30 minutes/day Frequency: 1-2 times per week Rekha/Denominational: None Special rekha needs: No Seatbelt use: always Helmet use: Yes Helmet use: always Drive intox or ride w/intox [id number] tank driver: No Do you feel safe at home: Yes Do you feel safe in your relationship?: Yes Exam Narrative Exam Narrative: 1.Const: Well-nourished, Well-developed, appearing stated age 2.Eyes: PERRL, no conjunctival injection, and symmetrical lids. 3.ENT: Atraumatic external nose and ears. Moist MM. Neck: Symmetric, trachea midline, No thyromegaly. 4.CVS: +S1/S2, No murmurs or gallops. Peripheral pulses 2+ and equal in all extremities. Brisk capillary refill in all extremities. 5.RESP: Unlabored respiratory effort. Clear to auscultation bilaterally. No wheezes rales or rhonchi 6.GI: Soft, nondistended, no guarding or rebound, mild to moderate tenderness in the suprapubic and left lower quadrant region. Positive heel strike test, positive left-sided obturator sign. No pain to McBurney's point, negative Pinedo sign. 7.MSK: Normocephalic/Atraumatic, Extremities w/o deformity or ttp No cyanosis or clubbing, Normal movement of all extremities 8.Skin: Warm, Dry. No rashes or lesions. 9.Neuro: commissioner of officials II-XII grossly intact. Sensation grossly intact, no focal neurologic deficits. 10.Psych: (AAO) x3. Appropriate mood and affect Course Vital Signs Vital signs: Vital Signs Temperature 37 C 08/30/22 08:41 Pulse 85 08/30/22 08:41 Respiratory Rate 18 08/30/22 08:41 Blood Pressure 190/106 H 08/30/22 08:41 Pulse Oximetry 95 08/30/22 08:41 Temperature 37 C 08/30/22 08:41 Temperature Source Oral 08/30/22 08:41 Pulse 85 08/30/22 08:41 Respiratory Rate 18 08/30/22 08:41 Respiratory Effort Normal, Non-Labored 08/30/22 08:49 Blood Pressure 190/106 H 08/30/22 08:41 Blood Pressure Position Supine 08/30/22 08:41 Pulse Oximetry 95 08/30/22 08:41 Oxygen Delivery Method Room Air 08/30/22 08:41 Oxygen Flow Rate 0 08/30/22 08:41 Lab/Test Results Lab/Test Results: Laboratory Tests Range/Units 08/30/22 08/30/22 08/30/22 09:29 09:29 09:29 WBC (4.4-10.8) 10^3/uL 8.26 RBC (3.93-5.22) 10^6/uL 4.55 Hgb (11.2-15.7) g/dL 13.8 Hct (36.0-46.0) % 41.7 MCV (80-95) fL 92 MCH (27.0-33.0) pg 30.3 MCHC (32.0-36.0) % 33.1 RDW (11.7-14.6) % 13.3 Plt Count (130-400) 10^3/uL 369 MPV (8.0-11.0) fL 11.0 Immature Gran % 0.2 Neutrophils % 75.4 Lymphocytes % 15.0 Monocytes % 8.2 Eosinophils % 0.6 Basophils % 0.6 Nucleated RBC % (0.0-0.3) % 0.0 Absolute Neutrophils (1.2-6.7) 10^3/uL 6.22 Absolute Lymphocytes (1.2-3.4) 10^3/uL 1.24 Absolute Monocytes (0.1-0.8) 10^3/uL 0.68 Absolute Eosinophils (0.0-0.7) 10^3/uL 0.05 Absolute Basophils (0.0-0.2) 10^3/uL 0.05 VBG Lactate (0.6-1.4) mmol/L 1.4 Sodium (136-145) mmol/L 134 L Potassium (3.5-5.1) mmol/L 3.6 Chloride (98-107) mmol/L 104 Carbon Dioxide (21.0-32.0) mmol/L 25.7 Anion Gap (3-11) mmol/L 4.3 BUN (7-18) mg/dL 12 Creatinine (0.55-1.02) mg/dL 1.0 Est GFR (CKD-EPI 2020) (mL/min/1.73m2) 67.78 Glucose (74-106) mg/dL 102 Calcium (8.5-10.1) mg/dL 9.7 Total Bilirubin (0.2-1.0) mg/dL 0.4 AST (15-37) U/L 16 ALT (14-59) U/L 23 Alkaline Phosphatase (46-116) U/L 77 Total Protein (6.4-8.2) g/dL 8.8 H Albumin (3.4-5.0) g/dL 4.1 Lipase (16-77) U/L 42
[2022-08-30 09:59] VITALS: BP 148/78; PULSE 66
[2022-08-30 10:06] LABS: Bilirubin Negative (Negative); Blood Negative (Negative); Clarity Clear (Clear); Glucose Negative (Negative); Ketones Negative (Negative); Leukocyte Esterase Negative (Negative); Nitrite Negative (Negative); Urobilinogen 0.2 mg/dL (Up to 0.2)
[2022-08-30] MEDS: Normal Saline - Diluent 50 ML VIAL IJ (10:14)
[2022-08-30] MEDS: Omnipaque 350 MG/ML 500 ML BTL-Imaging package IJ (10:15)
[2022-08-30] MEDS: Normal Saline Flush 10 ML SYR IVP (10:17)
[2022-08-30 11:22] VITALS: BP 174/99; PULSE 71; RESP 16; O2SAT 98
[2022-08-30] MEDS: metroNIDAZOLE 500 MG TAB PO (11:25)
[2022-08-30] MEDS: Ciprofloxacin 500 MG TAB PO (11:25)
== END 2022-08-30 11:42 | disposition home or self-care (01) ==
PROVIDERS: Emergency Provider Student in an Organized Health Care Education/Training Program; PCP Family Medicine
DX: K57.32 Diverticulitis of large intestine without perforation or abscess without bleeding (principal); K63.89 Other specified diseases of intestine; I10 Essential (primary) hypertension; Z98.51 Tubal ligation status; Z90.710 Acquired absence of both cervix and uterus
CPT/HCPCS: 36415; 80053; 83690; 96361; 96374; 99285; 74177; 81003; 83605; 85025; 99284; J0131

== ENCOUNTER 2022-09-02 10:52 | Inpatient (IN) | payer MEDICAID, SELFPAY ==
--- NOTE | 2022-09-02 10:56 | ED.GENADUL_ITS ---
Discharge Plan Disposition Patient Disposition: Admit to [facility] Condition: Stable Discharge Details Clinical Impression: Acute diverticulitis Primary Care Provider: Charanjit Arias ED Provider: Hazel He Home Meds and New Rx's Prescriptions: No Action omeprazole magnesium [Prilosec OTC] 20 mg tablet,delayed release (DR/EC) 20 mg PO DAILY Qty: 90 3RF mirtazapine [Remeron] 15 mg tablet 15 mg PO DAILY Qty: 90 3RF Prempro 0.3-1.5 mg tablet 1 tab PO DAILY Qty: 84 2RF metoprolol succinate 25 mg tablet extended release 24 hr 25 mg PO DAILY Qty: 90 3RF atorvastatin 40 mg tablet 40 mg PO DAILY Qty: 90 3RF fenofibrate nanocrystallized [Tricor] 145 mg tablet 145 mg PO DAILY Qty: 90 3RF ciprofloxacin HCl [Cipro] 500 mg tablet 500 mg PO BID 10 Days Qty: 20 0RF metronidazole 500 mg tablet 500 mg PO TID 10 Days Qty: 30 0RF Medical Decision Making 1120 -- 52-year-old female history of hypertension, hyperlipidemia seen here 3 days ago and diagnosed with diverticulitis sent home on Cipro and Flagyl presents with worsening pain since yesterday and fever of 100.6 this morning. Her blood pressure is significantly elevated at 180/117. She reports she has taken her blood pressure medication. This may be a factor of pain. She appears uncomfortable but nontoxic and is afebrile. Her abdomen is soft and tender in the left upper and lower quadrants and suprapubic region. Case discussed with Dr. Martinez who agrees with plan for oral and IV contrast. Patient is agreeable with repeat CT imaging. We will give a dose of IV Tylenol, bolus IV fluids and obtain screening labs. 1310 --Labs and imaging reviewed. Normal white blood cell count. Potassium 3.2, will replete. Lipase within normal limits. Urinalysis negative. FLUVID negative. CT resulted and notes stable appearance of sigmoid diverticulitis with no evidence of perforation or abscess. Dr. Martinez evaluated pt at bedside --she is still quite uncomfortable so he will admit for pain control and IV antibiotics. Patient is agreeable with plan. Medical Records Medical records reviewed: Yes I reviewed the patient's medical records. Medical records narrative: 08/30/22 CT abdomen/pelvis with IV contrast: IMPRESSION: 1. Extensive sigmoid diverticulosis with evidence of acute sigmoid diverticulitis.? No abscess nor evidence of fistulous communication at this time.? No gas in the portal venous system. 2. Stable cyst in the liver adjacent to the gallbladder fossa, this measuring approximately 3.8 x 4.8 cm. 3. No evidence of acute appendicitis. Imaging Data Radiologic Study: Radiologist's impression: CT ABDOMEN ? PELVIS W CLINICAL HISTORY: ? recent diverticulitis, pain worse+fever.? TECHNIQUE:? Imaging Protocol: Axial computed tomography images with coronal and sagittal reformatted images were created and reviewed CONTRAST MATERIAL:? Intravenous: Omnipaque 350 Contrast volume:100 ml Oral: yes / COMPARISON:? CT CT ABDOMEN ? PELVIS W from 08/30/2022 FINDINGS: ABDOMEN: Lung Bases: Normal where visualized. Liver: Mild fatty infiltration. Cyst left lobe. Gallbladder and biliary tract: No radiodense calculus or dilation.? Pancreas: Normal density, no abnormal calcifications or inflammatory process. Spleen: Normal. Kidneys: Normal size, contour and axis. No radiodense stones or obstructive uropathy. No suspicious masses seen. Adrenal glands: No masses seen. Abdominal Aorta: Abdominal portion non-dilated. Soft tissues: Unremarkable. PELVIS:? Bladder:? No gross wall thickening. No calculi.No focal mass. Bowel: No obstruction. ? Extensive wall thickening and surrounding inflammation involving the sigmoid colon. No evidence of perforation or abscess. Similar appearance to prior. Appendix normal. Peritoneal cavity: No ascites, collection or mesenteric inflammatory response. Bones: Within normal limits for age.? Reproductive organs: Within normal limits. Lymph nodes: Unremarkable.? Impression: Stable appearance of sigmoid diverticulitis. No evidence of perforation or abscess. Lab Data Lab results reviewed: Yes I reviewed the patient's lab results. Labs: Laboratory Tests Range/Units 09/02/22 09/02/22 09/02/22 11:35 11:35 11:35 WBC (4.4-10.8) 10^3/uL 5.91 RBC (3.93-5.22) 10^6/uL 4.37 Hgb (11.2-15.7) g/dL 13.3 Hct (36.0-46.0) % 39.6 MCV (80-95) fL 91 MCH (27.0-33.0) pg 30.4 MCHC (32.0-36.0) % 33.6 RDW (11.7-14.6) % 13.2 Plt Count (130-400) 10^3/uL 342 MPV (8.0-11.0) fL 10.8 Immature Gran % 0.3 Neutrophils % 65.5 Lymphocytes % 24.5 Monocytes % 8.0 Eosinophils % 0.7 Basophils % 1.0 Nucleated RBC % (0.0-0.3) % 0.0 Absolute Neutrophils (1.2-6.7) 10^3/uL 3.87 Absolute Lymphocytes (1.2-3.4) 10^3/uL 1.45 Absolute Monocytes (0.1-0.8) 10^3/uL 0.47 Absolute Eosinophils (0.0-0.7) 10^3/uL 0.04 Absolute Basophils (0.0-0.2) 10^3/uL 0.06 Sodium Cancelled Potassium Cancelled Chloride Cancelled Carbon Dioxide Cancelled Anion Gap Cancelled BUN Cancelled Creatinine Cancelled Est GFR (CKD-EPI 2020) Cancelled Glucose Cancelled Calcium Cancelled Total Bilirubin Cancelled AST Cancelled ALT Cancelled Alkaline Phosphatase Cancelled Total Protein Cancelled Albumin Cancelled Lipase Cancelled Urine Color (Yellow) Urine Clarity (Clear) Urine pH (5-8) Ur Specific [place] (1.005-1.025) Urine Protein (Negative) mg/dL Urine Ketones (Negative) mg/dL Urine Blood (Negative) Urine Nitrite (Negative) Urine Bilirubin (Negative) Urine Urobilinogen (Up to 0.2) mg/dL Ur Leukocyte Esterase (Negative) Urine Glucose (Negative) mg/dL COVID-19 Source SARS-CoV-2 (PCR) (Negative) Influenza Type A (PCR) (Negative) Influenza Type B (PCR) (Negative) RSV (PCR) (Negative) Range/Units 09/02/22 09/02/22 09/02/22 11:55 12:05 12:39 WBC (4.4-10.8) 10^3/uL RBC (3.93-5.22) 10^6/uL Hgb (11.2-15.7) g/dL Hct (36.0-46.0) % MCV (80-95) fL MCH (27.0-33.0) pg MCHC (32.0-36.0) % RDW (11.7-14.6) % Plt Count (130-400) 10^3/uL MPV (8.0-11.0) fL Immature Gran % Neutrophils % Lymphocytes % Monocytes % Eosinophils % Basophils % Nucleated RBC % (0.0-0.3) % Absolute Neutrophils (1.2-6.7) 10^3/uL Absolute Lymphocytes (1.2-3.4) 10^3/uL Absolute Monocytes (0.1-0.8) 10^3/uL Absolute Eosinophils (0.0-0.7) 10^3/uL Absolute Basophils (0.0-0.2) 10^3/uL Sodium 140 Potassium 3.2 L Chloride 104 Carbon Dioxide 23.3 Anion Gap 12.7 H BUN 10 Creatinine 1.2 H Est GFR (CKD-EPI 2020) 54.46 Glucose 104 Calcium 9.5 Total Bilirubin 0.2 AST 27 ALT 34 Alkaline Phosphatase 58 Total Protein 8.4 H Albumin 4.0 Lipase 29 Urine Color (Yellow) Yellow Urine Clarity (Clear) Clear Urine pH (5-8) 6.0 Ur Specific [place] (1.005-1.025) 1.010 Urine Protein (Negative) mg/dL Negative Urine Ketones (Negative) mg/dL Negative Urine Blood (Negative) Negative Urine Nitrite (Negative) Negative Urine Bilirubin (Negative) Negative Urine Urobilinogen (Up to 0.2) mg/dL 0.2 Ur Leukocyte Esterase (Negative) Negative Urine Glucose (Negative) mg/dL Negative COVID-19 Source Nasopharynx SARS-CoV-2 (PCR) (Negative) Negative Influenza Type A (PCR) (Negative) Negative Influenza Type B (PCR) (Negative) Negative RSV (PCR) (Negative) Negative HPI General Mode of arrival: ambulatory . Date/Time Provider Initiated Documentation: 09/02/22 10:54 . Limitations to Documentation: no limitations . Information obtained by: patient . HPI Narrative: Patient is a 52-year-old female who was seen here 3 days ago and diagnosed with diverticulitis sent home on Cipro and Flagyl presents from the PCP office after seen there for ED follow-up this morning sent here to the ED for worsening pain yesterday and reported fever today. Patient states she has been taking the Cipr o and Flagyl as prescribed. She states yesterday she had worsening diffuse abdominal pain and today had a temperature of 100.6. She did take 800 mg of ibuprofen at 8 AM this morning. She admits to some nausea yesterday but denies any today. She did have a normal brown formed bowel movement this morning and denies any diarrhea or rectal bleeding. She denies any urinary symptoms. She has not taken any Tylenol. Related Data Home Medications Medication Instructions Recorded Confirmed mirtazapine 15 mg tablet (Remeron) 15 mg PO DAILY #90 tabs 03/10/22 09/02/22 conj estrogen-medroxyprogesterone 1 tab PO DAILY #84 tabs 07/11/22 09/02/22 0.3 mg-1.5 mg tablet (Prempro) metoprolol succinate 25 mg 25 mg PO DAILY #90 tabs 07/15/22 09/02/22 tablet,extended release 24 hr omeprazole magnesium 20 mg 20 mg PO DAILY #90 tabs 08/03/22 09/02/22 tablet,delayed release (Prilosec OTC) atorvastatin 40 mg tablet 40 mg PO DAILY #90 tabs 08/22/22 09/02/22 fenofibrate nanocrystallized 145 145 mg PO DAILY #90 tabs 08/22/22 09/02/22 mg tablet (Tricor) ciprofloxacin HCl 500 mg tablet 500 mg PO BID 10 days #20 tabs 08/30/22 09/02/22 (Cipro) metronidazole 500 mg tablet 500 mg PO TID 10 days #30 tabs 08/30/22 09/02/22 Previous Rx's Medication Instructions Recorded mirtazapine 15 mg tablet (Remeron) 15 mg PO DAILY #90 tabs 03/10/22 conj estrogen-medroxyprogesterone 1 tab PO DAILY #84 tabs 07/11/22 0.3 mg-1.5 mg tablet (Prempro) metoprolol succinate 25 mg 25 mg PO DAILY #90 tabs 07/15/22 tablet,extended release 24 hr omeprazole magnesium 20 mg 20 mg PO DAILY #90 tabs 08/03/22 tablet,delayed release (Prilosec OTC) atorvastatin 40 mg tablet 40 mg PO DAILY #90 tabs 08/22/22 fenofibrate nanocrystallized 145 145 mg PO DAILY #90 tabs 08/22/22 mg tablet (Tricor) ciprofloxacin HCl 500 mg tablet 500 mg PO BID 10 days #20 tabs 08/30/22 (Cipro) metronidazole 500 mg tablet 500 mg PO TID 10 days #30 tabs 08/30/22 Allergies Allergy/AdvReac Type Severity Reaction Status Date / Time losartan Allergy Intermediate angioedema Verified 09/02/22 11:34 trazodone AdvReac Intermediate Headache Verified 09/02/22 11:34 codeine [Codeine] AdvReac heart Verified 09/02/22 11:34 racing lidocaine AdvReac heart Verified 09/02/22 11:34 racing General Stated Complaint: Abd Prob GLORIA: 3 Review of Systems All systems reviewed & are unremarkable except as noted in HPI and below Constitutional Constitutional: Reports as per HPI, Denies chills and Reports fever(s) Eyes Eyes: Denies blurry vision ENT Ears, Nose, Mouth, and Throat: Denies dizziness, Denies sore throat and Denies throat swelling Cardiovascular Cardiovascular: Denies chest pain and Denies dyspnea Respiratory Respiratory: Denies cough and Denies dyspnea Gastrointestinal Gastrointestinal: Reports abdominal pain, Denies diarrhea, Reports nausea and Denies vomiting Genitourinary Genitourinary: Denies hematuria and Denies dysuria Musculoskeletal Musculoskeletal: Denies back pain and Denies numbness Integumentary/Breasts Skin/Breast: Denies lesions and Denies rash Neurologic Neurologic: Denies dizziness, Denies localized weakness and Denies numbness Allergic/Immunologic Allergic/Immunologic: Denies throat swelling PFSH All Active Problems (Updated 09/02/22 @ 14:45 by Hazel He DO) Acute diverticulitis (Acute) Diverticulitis (Chronic) Colon wall thickening (Acute) Adjustment disorder with anxious mood (Acute) Essential hypertension (Acute) Hyperlipidemia LDL goal <130 (Acute) C. difficile colitis (Acute) Left lower quadrant pain (Acute) Depression (Chronic) Dizziness (Acute) Hot flashes (Acute) Tobacco abuse (Acute) Leg pain, bilateral (Acute) Upper respiratory infection (Acute) Ovarian mass, right (Acute) we will get u/s, as suggested tylenol as needed for pain Medical History Peritonsillar abscess Tonsillar hypertrophy Surgical History HYSTERECTOMY Supracervical Ligation of fallopian tube Family History Mother Hyperlipidemia Father Essential hypertension Sister No problems noted. Brother Hyperlipidemia Grandfather No problems noted. Grandfather Personal history of malignant neoplasm COLON Grandmother No problems noted. Grandmother Personal history of malignant neoplasm PANCREATIC Social History Smoking/Tobacco Use Status: Current every day Tobacco Type: cigarettes Tobacco: How many years used: 35 Quit status: has quit before Second Hand Exposure: Yes Smoking risk assessment performed?: Yes Alcohol Intake: current Alcohol Intake frequency: a few times a month Alcohol type: beer Drug use: Rarely Substance use type: marijuana Details: Hasnt smoked since 08/15/20. 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 Pets and animals: Yes Pets and animals: dog(s) Sexually active: Yes Do you think of yourself as: straight/heterosexual Current gender identity: female What is your relationship status?: How often do you talk on the phone with friends or family?: twice per week How often do you get together with friends or relatives?: twice per week How often do you attend pentecostal or taoism services?: decline to answer Do you belong to any clubs or organized social groups?: no Panel score (0-1 are the most socially isolated patients): 2 What type of physical activity do you participate in: walking Duration: 15-30 minutes/day Frequency: 1-2 times per week Rekha/Adventist: None Special rekha needs: No Seatbelt use: always Helmet use: Yes Helmet use: always Drive intox or ride w/intox retail delivery driver: No Do you feel safe at home: Yes Do you feel safe in your relationship?: Yes Exam Const General: cooperative, uncomfortable and no acute distress Orientation: alert, awake and oriented x3 HENMT Head: normal to inspection Face and sinus: normal facial exam Eyes General: appearance normal, both eyes and all related structures Pupils: PERRL EOM: EOM intact bilaterally Neck Neck: normal visual inspection and No submandibular swelling Lymphatic: no lymphadenopathy noted Chest Chest: normal inspection of the chest and no tenderness Resp Effort & Inspection: normal respiratory effort and able to speak in complete sentences Auscultation: clear to auscultation bilaterally Cardio Rate: regular rate Rhythm: regular rhythm GI Inspection: normal to inspection Palpation: soft, not firm, not rigid and tender in the LLQ, in the LUQ and suprapubicly Auscultation: hypoactive bowel sounds Back/Spine/Pelvis Thoracic/Lumbar Spine: thoracic and lumbar spine normal to inspection Pelvis: no pain with anterior-posterior compression Skin General skin exam: no rashes or lesions noted Neuro General: patient alert, patient awake and patient oriented x3 Cognition: normal cognition Speech: speech normal Motor: muscle tone normal throughout Sensory Exam: no sensory deficits noted Extrem General: normal to inspection, full ROM, capillary refill normal, no calf tenderness bilaterally and no edema Psych Appearance: grossly normal Mental Status: mental status grossly normal Speech and Movement: speech and movement normal Affect: normal affect
[2022-09-02 11:14] VITALS: BP 180/117; PULSE 90; RESP 16; TEMP 36.8; O2SAT 98
[2022-09-02 11:42] LABS: Abs Immature Grans 0.02 10^3/uL (0.0-0.06); Absolute Basophil Count 0.06 10^3/uL (0.0-0.2); Absolute Eosinophil Count 0.04 10^3/uL (0.0-0.7); Absolute Lymphocyte Count 1.45 10^3/uL (1.2-3.4); Absolute Monocyte Count 0.47 10^3/uL (0.1-0.8); Absolute Neutrophil Count 3.87 10^3/uL (1.2-6.7); Eosinophils % 0.7; HCT 39.6 % (36.0-46.0); HGB 13.3 g/dL (11.2-15.7); Immature Grans % 0.3; Lymphocytes % 24.5; MCH 30.4 pg (27.0-33.0); MCHC 33.6 % (32.0-36.0); MCV 91 fL (80-95); MPV 10.8 fL (8.0-11.0); Neutrophils % 65.5; Platelet Count 342 10^3/uL (130-400); RBC 4.37 10^6/uL (3.93-5.22); RDW 13.2 % (11.7-14.6); RDW-SD 44.2 fL; WBC 5.91 10^3/uL (4.4-10.8)
[2022-09-02] MEDS: Breeza Beverage 473 ML BTL PO (12:02)
[2022-09-02] MEDS: Omnipaque 350 MG/ML 50 ML BTL PO (12:03)
[2022-09-02] MEDS: Normal Saline 1,000 ML 1000 ML IV (12:07)
[2022-09-02 12:08] LABS: Bilirubin Negative (Negative); Blood Negative (Negative); Clarity Clear (Clear); Glucose Negative (Negative); Ketones Negative (Negative); Leukocyte Esterase Negative (Negative); Nitrite Negative (Negative); Urobilinogen 0.2 mg/dL (Up to 0.2)
[2022-09-02] MEDS: ACETAMINOPHEN 1,000 MG/100 ML BTL 400 MG IVPB (12:10)
[2022-09-02 12:34] LABS: ALT 34 U/L (14-59); AST 27 U/L (15-37); Alkaline Phosphatase 58 U/L (46-116); Anion Gap 12.7 mmol/L (3-11); BUN 10 mg/dL (7-18); Bilirubin, Total 0.2 mg/dL (0.2-1.0); CO2 23.3 mmol/L (21.0-32.0); CREATININE 1.2 mg/dL (0.55-1.02); Calcium 9.5 mg/dL (8.5-10.1); Chloride 104 mmol/L (98-107); Estimated GFR 54.46 (mL/min/1.73m2); Glucose 104 mg/dL (74-106); Lipase 29 U/L (16-77); Potassium 3.2 mmol/L (3.5-5.1); Sodium 140 mmol/L (136-145); Total Protein 8.4 g/dL (6.4-8.2)
[2022-09-02 13:25] VITALS: BP 195/98; PULSE 70; RESP 16; O2SAT 99
[2022-09-02] MEDS: Normal Saline - Diluent 50 ML VIAL IV (13:27)
[2022-09-02] MEDS: Normal Saline Flush 10 ML SYR IVP (13:27)
[2022-09-02 13:37] LABS: COVID-19 PCR Negative (Negative); Influenza A PCR Negative (Negative); Influenza B PCR Negative (Negative); RSV PCR Negative (Negative)
[2022-09-02] MEDS: Omnipaque 350 MG/ML 100 ML BTL IJ (13:42)
[2022-09-02 13:44] LABS: Source Nasopharynx
--- NOTE | 2022-09-02 13:45 | DI.CT_ITS ---
Exam(s) CT ABDOMEN PELVIS W EXAM: CT ABDOMEN PELVIS W CLINICAL HISTORY: recent diverticulitis, pain worse+fever. TECHNIQUE: Imaging Protocol: Axial computed tomography images with coronal and sagittal reformatted images were created and reviewed CONTRAST MATERIAL: Intravenous: Omnipaque 350 Contrast volume:100 ml Oral: yes / COMPARISON: CT CT ABDOMEN PELVIS W from 08/30/2022 FINDINGS: ABDOMEN: Lung Bases: Normal where visualized. Liver: Mild fatty infiltration. Cyst left lobe. Gallbladder and biliary tract: No radiodense calculus or dilation. Pancreas: Normal density, no abnormal calcifications or inflammatory process. Spleen: Normal. Kidneys: Normal size, contour and axis. No radiodense stones or obstructive uropathy. No suspicious m asses seen. Adrenal glands: No masses seen. Abdominal Aorta: Abdominal portion non-dilated. Soft tissues: Unremarkable. PELVIS: Bladder: No gross wall thickening. No calculi.No focal mass. Bowel: No obstruction. Extensive wall thickening and surrounding inflammation involving the sigmoid colon. No evidence of perforation or abscess. Similar appearance to prior. Appendix normal. Peritoneal cavity: No ascites, collection or mesenteric inflammatory response. Bones: Within normal limits for age. Reproductive organs: Within normal limits. Lymph nodes: Unremarkable. Impression: Stable appearance of sigmoid diverticulitis. No evidence of perforation or abscess. RADIATION DOSE DELIVERED: 1,239.23mGy.cm Total DLP DATA REPOSITORY: All CT scans at this facility are submitted to the National Radiology Data Registry (NRDR) Dose Index Registry (DIR) with the [employer] (A[employer]). RADIATION OPTIMIZATION: All CT scans at this facility use at least one of these dose optimization te chniques: automated exposure control; mA and/or kV adjustment per patient size (includes targeted exa ms where dose is matched to clinical indication); or iterative reconstruction.
--- NOTE | 2022-09-02 14:29 | W.PM.HP.N ---
Date of service: 09/02/22 Time of Service: 14:30 Assessment and Plan Assessment and plan (1) Diverticulitis: Status: Chronic Assessment and plan: Certainly, the history and physical exam seem consistent with acute diverticulitis. Furthermore, the CAT scan from 2 days ago seems to support this diagnosis. Although today's CAT scan has not yet been interpreted, I do not think it looks much different from her previous one. Certainly, there are no abscesses, or signs of concerning perforation. In light of her increased pain, and elevated temperatures at home, I would consider this failure of outpatient antibiotic therapy. I will plan to admit her, start some broad-spectrum antibiotics, and see how her symptoms evolve over the next few days. Hopefully, we can manage this with antibiotics and diet alone. We did talk about the natural history of diverticulitis, however, and obviously if she develops any signs of worsening colitis or peritonitis, then we may need to consider surgical intervention. History of Present Illness History of Present Illness Chief Complaint: Abdominal pain Narrative: Omaira is a 52-year-old woman with a past medical history of diverticulosis. She began experiencing abdominal pain about 2 weeks ago. It was similar in nature and intensity 2 episodes of diverticulitis that she has had in the past. She used some basic interventions like diet modification and rest to see if her symptoms would improve. However, the intensity of her abdominal pain increased. She came to the emergency department on Monday, and underwent a CAT scan of the abdomen and pelvis that confirmed the diagnosis of diverticulitis. She was prescribed ciprofloxacin and metronidazole. She started taking that on Monday. Since then, she has had no improvement in her symptoms. Additionally, she has some subjective sense of fevers, and temperatures at home of 99 and 100. She tells me she has some mild discomfort with her bowel movements, which are slightly larger in size compared to her usual. Otherwise, she denies melena, hematochezia, diarrhea, or other GI symptoms. She denies any nausea or vomiting. Her other past medical history is most significant for hypertension and hypercholesterolemia. Her surgical history is significant for hysterectomy. Review of Systems Constitutional Constitutional: Denies difficulty sleeping, Reports fever(s), Denies poor appetite and Denies weakness Eyes Eyes: Reports system reviewed and no additional complaints, except as documented ENT Ears, Nose, Mouth, and Throat: Reports system reviewed and no additional complaints, except as documented Cardiovascular Cardiovascular: Denies chest pain and Denies dyspnea Respiratory Respiratory: Denies chest congestion, Denies cough and Denies dyspnea Gastrointestinal Gastrointestinal: Reports abdominal pain, Denies bloating, Reports change in stool character, Reports cramping, Denies diarrhea, Denies nausea and Denies vomiting Musculoskeletal Musculoskeletal: Denies back pain and Denies myalgias Neurologic Neurologic: Denies behavioral changes, Denies confusion and Denies weakness Psychiatric Psychiatric: Denies behavioral changes, Denies confusion and Denies depression Hematologic/Lymphatic Hematologic/Lymphatic: Denies easy bleeding and Denies easy bruising PFSH All Active Problems Diverticulitis (Chronic) Colon wall thickening (Acute) Adjustment disorder with anxious mood (Acute) Essential hypertension (Acute) Hyperlipidemia LDL goal <130 (Acute) C. difficile colitis (Acute) Left lower quadrant pain (Acute) Depression (Chronic) Dizziness (Acute) Hot flashes (Acute) Tobacco abuse (Acute) Leg pain, bilateral (Acute) Upper respiratory infection (Acute) Ovarian mass, right (Acute) we will get u/s, as suggested tylenol as needed for pain Medical History Peritonsillar abscess Tonsillar hypertrophy Surgical History HYSTERECTOMY Supracervical Ligation of fallopian tube Family History Mother Hyperlipidemia Father Essential hypertension Sister No problems noted. Brother Hyperlipidemia Grandfather No problems noted. Grandfather Personal history of malignant neoplasm COLON Grandmother No problems noted. Grandmother Personal history of malignant neoplasm PANCREATIC Social History Smoking/Tobacco Use Status: Current every day Tobacco Type: cigarettes Tobacco: How many years used: 35 Quit status: has quit before Second Hand Exposure: Yes Smoking risk assessment performed?: Yes Alcohol Intake: current Alcohol Intake frequency: a few times a month Alcohol type: beer Drug use: Rarely Substance use type: marijuana Details: Hasnt smoked since 08/15/20. 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 Pets and animals: Yes Pets and animals: dog(s) Sexually active: Yes Do you think of yourself as: straight/heterosexual Current gender identity: female What is your relationship status?: How often do you talk on the phone with friends or family?: twice per week How often do you get together with friends or relatives?: twice per week How often do you attend sikhism or scientologist services?: decline to answer Do you belong to any clubs or organized social groups?: no Panel score (0-1 are the most socially isolated patients): 2 What type of physical activity do you participate in: walking Duration: 15-30 minutes/day Frequency: 1-2 times per week Rekha/Congregation: None Special rekha needs: No Seatbelt use: always Helmet use: Yes Helmet use: always Drive intox or ride w/intox taxi cab driver: No Do you feel safe at home: Yes Do you feel safe in your relationship?: Yes Meds Allergies and Home Medications Allergies Allergy/AdvReac Type Severity Reaction Status Date / Time losartan Allergy Intermediate angioedema Verified 09/02/22 11:34 trazodone AdvReac Intermediate Headache Verified 09/02/22 11:34 codeine [Codeine] AdvReac heart Verified 09/02/22 11:34 racing lidocaine AdvReac heart Verified 09/02/22 11:34 racing Home Medications Medication Instructions Recorded Confirmed Type mirtazapine 15 mg tablet (Remeron) 15 mg PO DAILY #90 tabs 03/10/22 09/02/22 Rx conj estrogen-medroxyprogesterone 1 tab PO DAILY #84 tabs 07/11/22 09/02/22 Rx 0.3 mg-1.5 mg tablet (Prempro) metoprolol succinate 25 mg 25 mg PO DAILY #90 tabs 07/15/22 09/02/22 Rx tablet,extended release 24 hr omeprazole magnesium 20 mg 20 mg PO DAILY #90 tabs 08/03/22 09/02/22 Rx tablet,delayed release (Prilosec OTC) atorvastatin 40 mg tablet 40 mg PO DAILY #90 tabs 08/22/22 09/02/22 Rx fenofibrate nanocrystallized 145 145 mg PO DAILY #90 tabs 04/03/23 04/14/23 Rx mg tablet (Tricor) ciprofloxacin HCl 500 mg tablet 500 mg PO BID 10 days #20 tabs 08/30/22 09/02/22 Rx (Cipro) metronidazole 500 mg tablet 500 mg PO TID 10 days #30 tabs 08/30/22 09/02/22 Rx Exam Const General: cooperative, comfortable and no acute distress Nutritional Appearance: average body habitus Orientation: alert, awake and oriented x3 HENMT Head: normal to inspection Neck Neck: normal visual inspection, full ROM and no lymphadenopathy Resp Effort & Inspection: normal respiratory effort Auscultation: clear to auscultation bilaterally and no wheezes Cardio Palpation: normal PMI Rate: regular rate Rhythm: regular rhythm Heart Sounds: S1 normal and S2 normal GI Inspection: normal to inspection and non-distended Palpation: soft, no hernias and tender Percussion: normal to percussion Auscultation: normal bowel sounds Skin General skin exam: no rashes or lesions noted Neuro General: patient alert, patient awake and patient oriented x3 Extrem Right lower extremity: no edema Left lower extremity: no edema Results Imaging Abdomen CT scan report/results: pending and image reviewed CT scan - pelvis: pending and image reviewed Labs 09/02/22 11:35 09/02/22 12:05 Labs: Laboratory Results - last 24 hr 09/02/22 09/02/22 09/02/22 11:35 11:35 11:35 WBC 5.91 RBC 4.37 Hgb 13.3 Hct 39.6 MCV 91 MCH 30.4 MCHC 33.6 RDW 13.2 Plt Count 342 MPV 10.8 Immature Gran % 0.3 Neutrophils % 65.5 Lymphocytes % 24.5 Monocytes % 8.0 Eosinophils % 0.7 Basophils % 1.0 Nucleated RBC % 0.0 Absolute Neutrophils 3.87 Absolute Lymphocytes 1.45 Absolute Monocytes 0.47 Absolute Eosinophils 0.04 Absolute Basophils 0.06 Sodium Cancelled Potassium Cancelled Chloride Cancelled Carbon Dioxide Cancelled Anion Gap Cancelled BUN Cancelled Creatinine Cancelled Est GFR (CKD-EPI 2020) Cancelled Glucose Cancelled Calcium Cancelled Total Bilirubin Cancelled AST Cancelled ALT Cancelled Alkaline Phosphatase Cancelled Total Protein Cancelled Albumin Cancelled Lipase Cancelled Urine Color Urine Clarity Urine pH Ur Specific [place] Urine Protein Urine Ketones Urine Blood Urine Nitrite Urine Bilirubin Urine Urobilinogen Ur Leukocyte Esterase Urine Glucose COVID-19 Source SARS-CoV-2 (PCR) Influenza Type A (PCR) Influenza Type B (PCR) RSV (PCR) 09/02/22 09/02/22 09/02/22 11:55 12:05 12:39 WBC RBC Hgb Hct MCV MCH MCHC RDW Plt Count MPV Immature Gran % Neutrophils % Lymphocytes % Monocytes % Eosinophils % Basophils % Nucleated RBC % Absolute Neutrophils Absolute Lymphocytes Absolute Monocytes Absolute Eosinophils Absolute Basophils Sodium 140 Potassium 3.2 L Chloride 104 Carbon Dioxide 23.3 Anion Gap 12.7 H BUN 10 Creatinine 1.2 H Est GFR (CKD-EPI 2020) 54.46 Glucose 104 Calcium 9.5 Total Bilirubin 0.2 AST 27 ALT 34 Alkaline Phosphatase 58 Total Protein 8.4 H Albumin 4.0 Lipase 29 Urine Color Yellow Urine Clarity Clear Urine pH 6.0 Ur Specific [place] 1.010 Urine Protein Negative Urine Ketones Negative Urine Blood Negative Urine Nitrite Negative Urine Bilirubin Negative Urine Urobilinogen 0.2 Ur Leukocyte Esterase Negative Urine Glucose Negative COVID-19 Source Nasopharynx SARS-CoV-2 (PCR) Negative Influenza Type A (PCR) Negative Influenza Type B (PCR) Negative RSV (PCR) Negative Last Vital Signs Temp 98.3 F 09/02/22 11:14 Pulse 70 09/02/22 13:25 Resp 16 09/02/22 13:25 BP 195/98 H 09/02/22 13:25 Pulse Ox 99 09/02/22 13:25 PAWSS Have you Been Recently Intoxicated or Drunk Within the Last 30 days?: No Have you Ever Experienced Previous Episodes of Alcohol Withdrawal?: No Have you ever Experienced Withdrawal Seizures?: No Have you ever Experienced Delirium Tremens(DT)s?: No Have you ever undergone Alcohol Rehabilitation Treatment (i.e, inpt ot outpatient treatment programs)?: No Have you ever Experienced Blackouts?: No Have you ever Combined Alcohol with other Downers within the last 90 days?: No Have you ever Combined Alcohol with any other Substance of Abuse during the last 90 days?: No Positive Blood Alcohol level on Presentation? [PCS.BAL]: No Evidence of Increased Autonomic Activity (i.e. HR>120, tremor, sweating, agitation, nausea)?: No Result: 0 Time Spent Time spent with Patient: 40-54 minutes Time was spent: preparing to see the patient(eg.review tests), obtaining and/or reviewing separately [facility], ordering medications,tests, procedures, indepentently interpreting results and counseling the patient
[2022-09-02] MEDS: PIPERACILLIN/TAZO 3.375 GM in Normal Saline 50 ML IVPB ×2 (14:53→20:28)
[2022-09-02 14:58] VITALS: BP 190/89; PULSE 71; RESP 16; TEMP 36.6; O2SAT 96
[2022-09-02] MEDS: hydrALAZINE 20 MG/ML VIAL 10 MG IVP (15:20)
[2022-09-02 15:49] VITALS: BP 165/88; PULSE 70; RESP 16; TEMP 36.8; O2SAT 100
[2022-09-02] MEDS: Simethicone 80 MG CHEW PO (16:07)
[2022-09-02] MEDS: Enoxaparin 40 MG/0.4 ML SYR SC (16:07)
[2022-09-02] MEDS: POTASSIUM CHLORIDE 20 MEQ/100 ML BAG 50 MEQ IVPB (16:08)
[2022-09-02 16:40] VITALS: O2SAT 100
[2022-09-02] MEDS: Acetaminophen 500 MG TAB 1000 MG PO (18:18)
[2022-09-02] MEDS: Mirtazapine 15 MG TAB PO (21:10)
[2022-09-02 23:06] VITALS: BP 128/74; PULSE 65; RESP 16; TEMP 36.5; O2SAT 94
[2022-09-03] MEDS: PIPERACILLIN/TAZO 3.375 GM in Normal Saline 50 ML IVPB ×4 (01:16→20:45)
[2022-09-03] MEDS: Acetaminophen 500 MG TAB 1000 MG PO ×4 (01:16→17:54)
[2022-09-03 06:24] VITALS: BP 130/82; PULSE 75; RESP 16; TEMP 37.2; O2SAT 96
[2022-09-03 06:39] LABS: Abs Immature Grans 0.02 10^3/uL (0.0-0.06); Absolute Basophil Count 0.06 10^3/uL (0.0-0.2); Absolute Eosinophil Count 0.15 10^3/uL (0.0-0.7); Absolute Lymphocyte Count 1.35 10^3/uL (1.2-3.4); Absolute Neutrophil Count 2.39 10^3/uL (1.2-6.7); Basophils % 1.3; Eosinophils % 3.4; HCT 40.4 % (36.0-46.0); HGB 13.7 g/dL (11.2-15.7); Immature Grans % 0.4; Lymphocytes % 30.2; MCH 30.6 pg (27.0-33.0); MCHC 33.9 % (32.0-36.0); MCV 90 fL (80-95); MPV 11.1 fL (8.0-11.0); Monocytes % 11.2; Neutrophils % 53.5; Platelet Count 284 10^3/uL (130-400); RBC 4.48 10^6/uL (3.93-5.22); RDW 13.4 % (11.7-14.6); RDW-SD 44.8 fL; WBC 4.47 10^3/uL (4.4-10.8)
[2022-09-03] MEDS: Normal Saline Flush 10 ML SYR IVP (09:19)
[2022-09-03] MEDS: Metoprolol CR 25 MG TABCR PO (09:21)
[2022-09-03] MEDS: Atorvastatin 40 MG TAB PO (09:21)
[2022-09-03] MEDS: Omeprazole 20 MG CAPCR PO (09:21)
[2022-09-03] MEDS: Psyllium PKT 1 EACH PO (09:21)
[2022-09-03] MEDS: Fenofibrate, Micronized 145 MG TAB PO (09:22)
[2022-09-03] MEDS: Simethicone 80 MG CHEW PO (10:50)
[2022-09-03 14:28] VITALS: BP 132/82; PULSE 64; RESP 16; TEMP 37; O2SAT 97
--- NOTE | 2022-09-03 15:44 | PDOC.CMIN ---
- If Service Date Differs Date of service: 09/03/22 Time of Service: 15:44 Care Management Initial Assess REASON FOR HOSPITALIZATION:: Diverticulitis PAST MEDICAL HISTORY/PAST SURGICAL HISTORY:: All Active Problems. Diverticulitis (Chronic). Colon wall thickening (Acute). Adjustment disorder with anxious mood (Acute). Essential hypertension (Acute). Hyperlipidemia LDL goal <130 (Acute). C. difficile colitis (Acute). Left lower quadrant pain (Acute). Depression (Chronic). Dizziness (Acute). Hot flashes (Acute). Tobacco abuse (Acute). Leg pain, bilateral (Acute). Upper respiratory infection (Acute). Ovarian mass, right (Acute). we will get u/s, as suggested. tylenol as needed for pain. Medical History. Peritonsillar abscess. Tonsillar hypertrophy. Surgical History. HYSTERECTOMY. Supracervical. 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 She is independent at baseline. CURRENT FUNCTIONAL STATUS:: Omaira was lying in bed when CM met with her. She stated that she is feeling much better, and was able to eat and drink today. She reported that per MD, she will remain at [facility] overnight, and may be ready for discharge tomorrow. CM will continue to follow. ADVANCE DIRECTIVES:: None on file, CM will offer forms. Has patient been provided with info about the portal/API?: Yes Did the patient sign up for the portal?: Yes (active) CODE STATUS:: Full Code INSURANCE COVERAGE / FINANCIAL ISSUES:: [facility] CURRENT HOME/COMMUNITY SERVICES/EQUIPMENT:: None PRIMARY CARE PHYSICIAN:: Charanjit Arias POTENTIAL DISCHARGE NEEDS:: Follow up appointments PATIENT/FAMILY EDUCATION NEEDS:: Review discharge instructions and limitations, discussion of self care needs including ask me three. ANTICIPATED BARRIERS TO DISCHARGE:: None TRANSPORTATION:: Via private vehicle PLAN:: Anticipate Omaira will return home when medically cleared. She will drive herself home, and will follow up with her PCP and discharge plan of care. CM will continue to follow.
[2022-09-03] MEDS: Enoxaparin 40 MG/0.4 ML SYR SC (15:50)
--- NOTE | 2022-09-03 18:23 | W.PM.PROGNOT ---
Date of Service Date of service: 09/03/22 Time of Service: 08:00 Assessment and Plan Assessment and plan (1) Diverticulitis: Status: Chronic Assessment and plan: She is got a normal white blood cell count today, and her exam is reassuring. I think we should continue the intravenous antibiotics for another day, and reassess tomorrow. Subjective Subjective Interval history since last seen: Omaira says she feels a little bit better today. She did have a little bit of loose bowel movements overnight, but her abdominal pain has improved significantly. Her appetite is a little increased today. Exam GI Inspection: normal to inspection Palpation: soft and tender (Suprapubic) Percussion: normal to percussion Auscultation: normal bowel sounds Objective Last Vital Signs Temp 98.6 F 09/03/22 14:28 Pulse 64 09/03/22 14:28 Resp 16 09/03/22 14:28 BP 132/82 09/03/22 14:28 Pulse Ox 97 09/03/22 14:28 Laboratory Results - last 24 hr 09/03/22 06:20 WBC 4.47 RBC 4.48 Hgb 13.7 Hct 40.4 MCV 90 MCH 30.6 MCHC 33.9 RDW 13.4 Plt Count 284 MPV 11.1 H Immature Gran % 0.4 Neutrophils % 53.5 Lymphocytes % 30.2 Monocytes % 11.2 Eosinophils % 3.4 Basophils % 1.3 Nucleated RBC % 0.0 Absolute Neutrophils 2.39 Absolute Lymphocytes 1.35 Absolute Monocytes 0.50 Absolute Eosinophils 0.15 Absolute Basophils 0.06 PAWSS Have you Been Recently Intoxicated or Drunk Within the Last 30 days?: No Have you Ever Experienced Previous Episodes of Alcohol Withdrawal?: No Have you ever Experienced Withdrawal Seizures?: No Have you ever Experienced Delirium Tremens(DT)s?: No Have you ever undergone Alcohol Rehabilitation Treatment (i.e, inpt ot outpatient treatment programs)?: No Have you ever Experienced Blackouts?: No Have you ever Combined Alcohol with other Downers within the last 90 days?: No Have you ever Combined Alcohol with any other Substance of Abuse during the last 90 days?: No Positive Blood Alcohol level on Presentation? [PCS.BAL]: No Evidence of Increased Autonomic Activity (i.e. HR>120, tremor, sweating, agitation, nausea)?: No Result: 0 Time Spent with Patient Time Spent with Patient: 25-34 minutes Time was spent: preparing to see the patient(eg.review tests), ordering medications,tests, procedures and counseling the patient
[2022-09-03] MEDS: Mirtazapine 15 MG TAB PO (20:45)
[2022-09-03 23:11] VITALS: BP 137/88; PULSE 57; RESP 16; TEMP 36.3; O2SAT 94
[2022-09-04] MEDS: Acetaminophen 500 MG TAB 1000 MG PO (00:58)
[2022-09-04] MEDS: PIPERACILLIN/TAZO 3.375 GM in Normal Saline 50 ML IVPB ×2 (00:58→10:01)
[2022-09-04 06:46] LABS: HCT 39.7 % (36.0-46.0); HGB 13.7 g/dL (11.2-15.7); MCH 31.1 pg (27.0-33.0); MCHC 34.5 % (32.0-36.0); MCV 90 fL (80-95); MPV 10.9 fL (8.0-11.0); Platelet Count 335 10^3/uL (130-400); RDW 13.2 % (11.7-14.6); RDW-SD 43.8 fL; WBC 4.53 10^3/uL (4.4-10.8)
[2022-09-04 07:01] VITALS: BP 157/93; PULSE 64; RESP 16; TEMP 36.7; O2SAT 99
[2022-09-04] MEDS: Psyllium PKT 1 EACH PO (08:52)
[2022-09-04] MEDS: Fenofibrate, Micronized 145 MG TAB PO (08:54)
[2022-09-04] MEDS: Atorvastatin 40 MG TAB PO (08:55)
[2022-09-04] MEDS: Metoprolol CR 25 MG TABCR PO (08:55)
[2022-09-04] MEDS: Omeprazole 20 MG CAPCR PO (08:55)
--- NOTE | 2022-09-04 09:52 | DSE_ITS ---
Date of service: 09/04/22 Time of Service: 09:52 DS: Diagnosis Discharge Diagnosis (1) Diverticulitis: Status: Chronic Asessment and Plan: Transition to outpatient enteral antibiotics. Follow-up in office 1 to 2 weeks Discharge Plan Disposition Patient Disposition: Home Condition: Improving Discharge Details Reason For Visit: Diverticulitis Admit Date/Time: 09/02/22 14:22 Admit Provider: Jason Martinez Attending Provider: Jason Martinez Primary Care Provider: Charanjit Arias Hospital Course Hospital Course: Omaira 52-year-old woman with diverticulitis. She had increasing pain after short trial of outpatient antibiotics. I admitted her to the hospital, started some broad-spectrum intravenous antibiotics, and she had resolution of her pain, and was able to tolerate a diet. Home Meds and New Rx's Prescriptions: New amoxicillin-pot clavulanate 875-125 mg tablet 1 tab PO BID Qty: 20 0RF Rx Instructions: Take 1 tablet by mouth in the morning, and 1 tablet by mouth in the evening Continued omeprazole magnesium [Prilosec OTC] 20 mg tablet,delayed release (DR/EC) 20 mg PO DAILY Qty: 90 3RF mirtazapine [Remeron] 15 mg tablet 15 mg PO DAILY Qty: 90 3RF Prempro 0.3-1.5 mg tablet 1 tab PO DAILY Qty: 84 2RF metoprolol succinate 25 mg tablet extended release 24 hr 25 mg PO DAILY Qty: 90 3RF atorvastatin 40 mg tablet 40 mg PO DAILY Qty: 90 3RF fenofibrate nanocrystallized [Tricor] 145 mg tablet 145 mg PO DAILY Qty: 90 3RF Discontinued ciprofloxacin HCl [Cipro] 500 mg tablet 500 mg PO BID 10 Days Qty: 20 0RF metronidazole 500 mg tablet 500 mg PO TID 10 Days Qty: 30 0RF Discharge Instructions Instructions: Diverticulitis (IP), Diverticulitis Diet (DC) Referrals: Jason Martinez MD [ [facility] STAFF PHYSICIAN] - (I will have the office contact you on Monday to schedule follow-up appointment with me or one of my partners in the next 1 to 2 weeks.) Activity:: Activity as Tolerated Equipment/Supplies:: No Equipment Needed Diet:: Diverticulitis diet DS: Summary Time Spent with Patient providing and/or coordinating discharge services: Greater than 30 minutes Status at Discharge Functional status at discharge: independent ambulation Overall status at discharge: patient is progressing back to baseline Mental Status: mental status grossly normal Speech and Movement: speech and movement normal Mood: congruent mood Affect: normal affect Exam Const General: cooperative, healthy appearing and comfortable Orientation: awake and oriented x3 Eyes General: appearance normal, both eyes and all related structures Conjunctivae: conjunctivae normal Sclera: sclerae normal Resp Effort & Inspection: normal respiratory effort and able to speak in complete sentences Cardio Jugular venous pressure: no JVD Rate: regular rate GI Inspection: non-distended Palpation: soft, no guarding, no hernias and nontender Auscultation: normal bowel sounds Skin General skin exam: normal turgor Neuro General: patient alert, patient awake and patient oriented x3 Cognition: normal cognition Extrem Right lower extremity: no edema Left lower extremity: no edema Psych Mental Status: mental status grossly normal Speech and Movement: speech and movement normal Mood: congruent mood Affect: normal affect DS: Data Vitals/I&O Vitals and I&O: Vital Signs Temperature 98.1 F 09/04/22 07:01 Temperature Source Tympanic 09/04/22 07:01 Pulse 64 09/04/22 07:01 Pulse Rhythm Regular 09/04/22 09:01 Respiratory Rate 16 09/04/22 07:01 Respiratory Effort Normal 09/04/22 09:01 Respiratory Depth Normal 09/04/22 09:01 Respiratory Pattern Normal 09/04/22 09:01 Blood Pressure 157/93 H 09/04/22 07:01 Blood Pressure Position Sitting 09/02/22 11:14 Pulse Oximetry 99 09/04/22 07:01 Oxygen Delivery Method Room Air 09/04/22 07:01 Oxygen Flow Rate 0 09/04/22 07:01 Pain Level 0 09/04/22 07:15 Comment Pt. denies pain at this time. 09/04/22 07:15 Intake & Output 09/03/22 09/03/22 09/04/22 11:59 23:59 11:59 Intake Total 480 / 940 460 / 940 50 / 50 Output Total 2700 / 3600 900 / 3600 1200 / 1200 Balance -2220 / -2660 -440 / -2660 -1150 / -1150 Intake: IV 110 / 210 100 / 210 50 / 50 Oral 370 / 730 360 / 730 Output: Urine 2700 / 3600 900 / 3600 1200 / 1200 Other: Urine Color Yellow Pale Yellow Urine Appearance Clear Clear Clear Urine Odor Normal Comment Void x1 in the toilet. Voiding Methods Toilet Toilet Toilet Data Completed and Pending Labs on day of discharge: Labs from last 24 hours 09/04/22 06:24 WBC 4.53 RBC 4.40 Hgb 13.7 Hct 39.7 MCV 90 MCH 31.1 MCHC 34.5 RDW 13.2 Plt Count 335 MPV 10.9 PFSH All Active Problems Acute diverticulitis (Acute) Diverticulitis (Chronic) Colon wall thickening (Acute) Adjustment disorder with anxious mood (Acute) Essential hypertension (Acute) Hyperlipidemia LDL goal <130 (Acute) C. difficile colitis (Acute) Left lower quadrant pain (Acute) Depression (Chronic) Dizziness (Acute) Hot flashes (Acute) Tobacco abuse (Acute) Leg pain, bilateral (Acute) Upper respiratory infection (Acute) Ovarian mass, right (Acute) we will get u/s, as suggested tylenol as needed for pain Medical History Peritonsillar abscess Tonsillar hypertrophy Surgical History HYSTERECTOMY Supracervical Ligation of fallopian tube Family History Mother Hyperlipidemia Father Essential hypertension Sister No problems noted. Brother Hyperlipidemia Grandfather No problems noted. Grandfather Personal history of malignant neoplasm COLON Grandmother No problems noted. Grandmother Personal history of malignant neoplasm PANCREATIC Social History Smoking/Tobacco Use Status: Current every day Tobacco Type: cigarettes Tobacco: How many years used: 35 Quit status: has quit before Second Hand Exposure: Yes Smoking risk assessment performed?: Yes Alcohol Intake: current Alcohol Intake frequency: a few times a month Alcohol type: beer Drug use: Rarely Substance use type: marijuana Details: Hasnt smoked since 08/15/20. 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 Pets and animals: Yes Pets and animals: dog(s) Sexually active: Yes Do you think of yourself as: straight/heterosexual Current gender identity: female What is your relationship status?: How often do you talk on the phone with friends or family?: twice per week How often do you get together with friends or relatives?: twice per week How often do you attend congregation or roman catholic services?: decline to answer Do you belong to any clubs or organized social groups?: no Panel score (0-1 are the most socially isolated patients): 2 What type of physical activity do you participate in: walking Duration: 15-30 minutes/day Frequency: 1-2 times per week Rekha/Taoism: None Special rekha needs: No Seatbelt use: always Helmet use: Yes Helmet use: always Drive intox or ride w/intox lease purchase driver: No Do you feel safe at home: Yes Do you feel safe in your relationship?: Yes Time Spent with Patient Time Spent with Patient: 45-69 minutes Time was spent: preparing to see the patient(eg.review tests), ordering medications,tests, procedures, counseling the patient and care coordination
--- NOTE | 2022-09-04 09:58 | W.PM.PROGNOT ---
Date of Service Date of service: 09/04/22 Time of Service: 09:58 Assessment and Plan Assessment and plan (1) Acute diverticulitis: Status: Acute Assessment and plan: White blood cell count is normal today, and the interval history and physical are very reassuring. Hopefully, the intravenous antibiotics have helped to get past the peak of the diverticulitis. I will transition her over to an enteral outpatient regimen. I like to see her in the office in the next 1 to 2 weeks to ensure appropriate healing. Subjective Subjective Interval history since last seen: Omaira feels much better today. She had no pain overnight. Her bowel movements are starting to normalize a little bit. Exam GI Other: Abdomen is soft, and not very tender. She is not distended. Objective Last Vital Signs Temp 98.1 F 09/04/22 07:01 Pulse 64 09/04/22 07:01 Resp 16 09/04/22 07:01 BP 157/93 H 09/04/22 07:01 Pulse Ox 99 09/04/22 07:01 Laboratory Results - last 24 hr 09/04/22 06:24 WBC 4.53 RBC 4.40 Hgb 13.7 Hct 39.7 MCV 90 MCH 31.1 MCHC 34.5 RDW 13.2 Plt Count 335 MPV 10.9 PAWSS Have you Been Recently Intoxicated or Drunk Within the Last 30 days?: No Have you Ever Experienced Previous Episodes of Alcohol Withdrawal?: No Have you ever Experienced Withdrawal Seizures?: No Have you ever Experienced Delirium Tremens(DT)s?: No Have you ever undergone Alcohol Rehabilitation Treatment (i.e, inpt ot outpatient treatment programs)?: No Have you ever Experienced Blackouts?: No Have you ever Combined Alcohol with other Downers within the last 90 days?: No Have you ever Combined Alcohol with any other Substance of Abuse during the last 90 days?: No Positive Blood Alcohol level on Presentation? [PCS.BAL]: No Evidence of Increased Autonomic Activity (i.e. HR>120, tremor, sweating, agitation, nausea)?: No Result: 0 Time Spent with Patient Time Spent with Patient: 35-49 minutes Time was spent: counseling the patient and care coordination
[2022-09-04] MEDS: Normal Saline 500 ML 100 ML IV (10:00)
[2022-09-04] MEDS: Simethicone 80 MG CHEW PO (10:42)
--- NOTE | 2022-09-04 11:19 | PDOC.CMDIS ---
- If Service Date Differs Date of service: 09/04/22 Time of Service: 11:19 LACE Index Scoring Tool - Questions: Length of Stay (in days): 2 Acuity (Admit via E.D.?): Yes E.D. Visits: 3 - Answers: Total Score: 8 Risk of Readmission: Low Risk Care Management Discharge Reason for Hospitalization: Diverticulitis Discharge Plan: Omaira will return home with no new services. She will drive herself home, and will follow up with her PCP and discharge plan of care. Patient/Family Education Needs: Review discharge instructions and limitations, discussion of self care needs including ask me three.
== END 2022-09-04 11:35 | disposition home or self-care (01) | DRG 392 ==
LOC: ER 14:44 → MS 15:39
PROVIDERS: Admitting Provider Surgery; Emergency Provider Physician Assistant; PCP Family Medicine; Visit Provider Surgery
DX: K57.32 Diverticulitis of large intestine without perforation or abscess without bleeding (principal); E78.5 Hyperlipidemia, unspecified; F32.A Depression, unspecified; F17.210 Nicotine dependence, cigarettes, uncomplicated; F43.22 Adjustment disorder with anxiety
CPT/HCPCS: 36415; 80053; 83690; 85027; 87637; 96361; 96365; 96375; 99285; J1650; 74177; 81003; 85025; J0131; J0360; J2543; J3480; J3490; Q9967

== ENCOUNTER 2022-09-26 15:51 | Outpatient (CLI) | payer MEDICAID, SELFPAY ==
[2022-09-26 11:36] LABS: Abs Immature Grans 0.02 10^3/uL (0.0-0.06); Absolute Basophil Count 0.05 10^3/uL (0.0-0.2); Absolute Eosinophil Count 0.06 10^3/uL (0.0-0.7); Absolute Lymphocyte Count 1.66 10^3/uL (1.2-3.4); Absolute Monocyte Count 0.49 10^3/uL (0.1-0.8); Absolute Neutrophil Count 3.49 10^3/uL (1.2-6.7); Basophils % 0.9; HCT 38.9 % (36.0-46.0); HGB 13.5 g/dL (11.2-15.7); Immature Grans % 0.3; Lymphocytes % 28.8; MCHC 34.7 % (32.0-36.0); MCV 89 fL (80-95); MPV 10.9 fL (8.0-11.0); Monocytes % 8.5; Neutrophils % 60.5; Platelet Count 295 10^3/uL (130-400); RBC 4.35 10^6/uL (3.93-5.22); RDW 13.3 % (11.7-14.6); RDW-SD 43.9 fL; WBC 5.77 10^3/uL (4.4-10.8)
[2022-09-26 11:48] LABS: C-Reactive Protein 0.17 mg/dL (0.0-0.3)
[2022-09-26 11:51] LABS: LDL CHOLESTEROL 132 mg/dL (<100); Potassium 3.2 mmol/L (3.5-5.1); Triglyceride 214 mg/dL (<150)
== END 2022-09-26 15:52 | disposition home or self-care (01) ==
LOC: LBO 15:51
PROVIDERS: Surgery; PCP Family Medicine; Visit Provider Family Medicine
DX: I10 Essential (primary) hypertension (principal); E78.1 Pure hyperglyceridemia; E78.5 Hyperlipidemia, unspecified; K57.90 Diverticulosis of intestine, part unspecified, without perforation or abscess without bleeding; K59.09 Other constipation
CPT/HCPCS: 36415; 83721; 84132; 84478; 85025; 86140

== ENCOUNTER 2022-11-10 15:49 | Outpatient (CLI) | payer MEDICAID, SELFPAY ==
[2022-11-10 14:12] LABS: Abs Immature Grans 0.03 10^3/uL (0.0-0.06); Absolute Basophil Count 0.05 10^3/uL (0.0-0.2); Absolute Eosinophil Count 0.12 10^3/uL (0.0-0.7); Absolute Lymphocyte Count 2.22 10^3/uL (1.2-3.4); Absolute Monocyte Count 0.82 10^3/uL (0.1-0.8); Absolute Neutrophil Count 4.54 10^3/uL (1.2-6.7); Basophils % 0.6; Eosinophils % 1.5; HCT 35.9 % (36.0-46.0); HGB 12.3 g/dL (11.2-15.7); Immature Grans % 0.4; Lymphocytes % 28.5; MCH 30.8 pg (27.0-33.0); MCHC 34.3 % (32.0-36.0); MCV 90 fL (80-95); MPV 11.2 fL (8.0-11.0); Monocytes % 10.5; Neutrophils % 58.5; Platelet Count 291 10^3/uL (130-400); RBC 3.99 10^6/uL (3.93-5.22); RDW 13.5 % (11.7-14.6); RDW-SD 44.7 fL; WBC 7.78 10^3/uL (4.4-10.8)
[2022-11-10 14:48] LABS: C-Reactive Protein 9.58 mg/dL (0.0-0.3)
== END 2022-11-10 15:50 | disposition home or self-care (01) ==
LOC: LBO 15:53
PROVIDERS: PCP Family Medicine; Visit Provider Surgery
DX: K57.90 Diverticulosis of intestine, part unspecified, without perforation or abscess without bleeding (principal); K59.09 Other constipation; A04.72 Enterocolitis due to Clostridium difficile, not specified as recurrent
CPT/HCPCS: 36415; 85025; 86140

== ENCOUNTER 2022-11-14 08:52 | Emergency (ER) | payer MEDICAID, SELFPAY ==
[2022-11-14 08:56] VITALS: BP 180/96; PULSE 87; RESP 18; TEMP 36.8; O2SAT 99
--- NOTE | 2022-11-14 09:00 | DI.CT_ITS ---
Exam(s) CT ABDOMEN PELVIS W EXAM: CT ABDOMEN PELVIS W CLINICAL HISTORY: divertiuculitis TECHNIQUE: Imaging Protocol: Axial computed tomography images with coronal and sagittal reformatted images were created and reviewed CONTRAST MATERIAL: Intravenous: Omnipaque 350 Contrast volume:100 mL Oral: No CT CT ABD AORTA CTA W RUNOFF from 08/17/[address] ABDOMEN PELVIS W from 09/02/2022 FINDINGS: ABDOMEN: Lung Bases: Normal where visualized. Liver: Normal density. There is again seen a 4.8 x 3.7 cm simple cyst in the left lobe of the liver. No follow-up is recommended. The enhancing lesion in the posterior segment of the right lobe of the liver is again seen. This represents a hepatic hemangioma. This has been present on prior examinat ions and is stable. Portal, Superior Mesenteric, and Splenic Veins: Unremarkable. Gallbladder and Biliary Tract: No radiodense calculus or dilation. Pancreas: Normal density, no abnormal calcifications or inflammatory process. Spleen: Normal. Adrenals: No masses seen. Kidneys: Normal size, contour and axis. No radiodense stones or obstructive uropathy. There is a stab le cyst in the lower pole of the left kidney. No follow-up is recommended. Abdominal Aorta: Abdominal portion non-dilated. Atherosclerosis. Bowel: There is diverticulosis seen in the sigmoid colon. There is stranding seen around the sigmoid colon consistent with acute diverticulitis. There is no evidence of bowel obstruction. Appendix is unremarkable. Peritoneal Cavity: No ascites, collection or mesenteric inflammatory response. No free air. Lymph Nodes: Within normal limits. Bones: Within normal limits for the patient's age. Soft Tissues: Unremarkable. PELVIS: Bladder: Symmetric distention, no gross wall thickening. Reproductive Organs: Unremarkable as visualized. Lymph Nodes: Within normal limits. Bones: Within normal limits for the patient's age. IMPRESSION: 1. Sigmoid diverticulitis without evidence of abscess or free air. 2. Findings were discussed with Dr. Torres at 10:55 a.m. on 11/14/2022. RADIATION DOSE DELIVERED: 902.74mGy.cm Total DLP DATA REPOSITORY: All CT scans at this facility are submitted to the National Radiology Data Registry (NRDR) Dose Index Registry (DIR) with the [employer] (A[employer]). RADIATION OPTIMIZATION: All CT scans at this facility use at least one of these dose optimization te chniques: automated exposure control; mA and/or kV adjustment per patient size (includes targeted exa ms where dose is matched to clinical indication); or iterative reconstruction.
--- NOTE | 2022-11-14 09:06 | ED.GENADUL_ITS ---
Discharge Plan Disposition Patient Disposition: Home Discharge Details Clinical Impression: Diverticulitis, Hypokalemia Primary Care Provider: Charanjit Arias ED Provider: Nathan Torres [facility] Meds and New Rx's Prescriptions: New amoxicillin-pot clavulanate 875-125 mg tablet 1 tab PO BID Qty: 14 0RF ondansetron 4 mg tablet,disintegrating 4 mg PO TID PRN (Reason: nausea and vomiting) 5 Days Qty: 15 0RF No Action omeprazole magnesium [Prilosec OTC] 20 mg tablet,delayed release (DR/EC) 20 mg PO DAILY Qty: 90 3RF mirtazapine [Remeron] 15 mg tablet 15 mg PO DAILY Qty: 90 3RF Fiber Gummies 2 gram tablet,chewable PO DAILY polyethylene glycol 3350 17 gram/dose powder 238 g PO ONCE Qty: 238 0RF Rx Instructions: take per colonoscopy instructions bisacodyl [Dulcolax (bisacodyl)] 5 mg tablet,delayed release (DR/EC) 5 mg PO ONCE Qty: 4 0RF Rx Instructions: take per colonoscopy instructions doxycycline hyclate 100 mg capsule 100 mg PO BID Qty: 30 3RF Prempro 0.3-1.5 mg tablet 1 tab PO DAILY Qty: 84 2RF metoprolol succinate 25 mg tablet extended release 24 hr 25 mg PO DAILY Qty: 90 3RF atorvastatin 40 mg tablet 40 mg PO DAILY Qty: 90 3RF fenofibrate nanocrystallized [Tricor] 145 mg tablet 145 mg PO DAILY Qty: 90 3RF ciprofloxacin HCl 500 mg tablet 500 mg PO BID 5 Days Qty: 10 0RF metronidazole 500 mg tablet 500 mg PO TID 7 Days Qty: 21 0RF Discharge Instructions Instructions: Diverticulitis (ED), Hypokalemia (ED), Diverticulitis Diet (ED) Additional Instructions: Please stop the Cipro and Flagyl that you are taking, and start the Augmentin instead. Use the Zofran for nausea as needed. Return for any worsening pain, fevers >100.5, or any other concerns. HPI General Date/Time Provider Initiated Documentation: 11/14/22 09:01 . History of Present Illness with intensity rated at 6. and is localized to the abdomen. Patient started experiencing this week(s) HPI Narrative: 52 year old female with known hx of Diverticulitis, presents to the ED at PCP direction with worsening pain. She started with pain on her left side of abd 6 days ago. She saw her pcp and was started on abx for the past 3 days. She says that her pain has continued, and now more suprapubic. She has had bouts of inten se nausea, but no vomiting. No diarrhea. No blood in stools, and denies urinary sx's. She says low grade fevers 99-100 at home. Related Data Home Medications Medication Instructions Recorded Confirmed mirtazapine 15 mg tablet (Remeron) 15 mg PO DAILY #90 tabs 03/10/22 09/17/22 conj estrogen-medroxyprogesterone 1 tab PO DAILY #84 tabs 07/11/22 09/17/22 0.3 mg-1.5 mg tablet (Prempro) metoprolol succinate 25 mg 25 mg PO DAILY #90 tabs 07/15/22 09/17/22 tablet,extended release 24 hr omeprazole magnesium 20 mg 20 mg PO DAILY #90 tabs 08/03/22 09/17/22 tablet,delayed release (Prilosec OTC) atorvastatin 40 mg tablet 40 mg PO DAILY #90 tabs 08/22/22 09/17/22 fenofibrate nanocrystallized 145 145 mg PO DAILY #90 tabs 08/22/22 09/17/22 mg tablet (Tricor) bisacodyl 5 mg tablet,delayed 5 mg PO ONCE colonscopy bowel prep 09/15/22 09/17/22 release (Dulcolax (bisacodyl)) #4 tabs doxycycline hyclate 100 mg capsule 100 mg PO BID #30 caps 09/15/22 09/15/22 inulin 2 gram chewable tablet g PO DAILY 09/15/22 09/17/22 (Fiber Gummies) polyethylene glycol 3350 17 238 g PO ONCE colonoscopy prep 09/15/22 09/17/22 gram/dose oral powder #238 grams ciprofloxacin HCl 500 mg tablet 500 mg PO BID 5 days #10 tabs 11/11/22 metronidazole 500 mg tablet 500 mg PO TID 7 days #21 tabs 11/11/22 amoxicillin 875 mg-potassium 1 tab PO BID #14 tabs 11/14/22 clavulanate 125 mg tablet ondansetron 4 mg disintegrating 4 mg PO TID PRN nausea and 11/14/22 tablet vomiting 5 days #15 tabs Previous Rx's Medication Instructions Recorded mirtazapine 15 mg tablet (Remeron) 15 mg PO DAILY #90 tabs 03/10/22 conj estrogen-medroxyprogesterone 1 tab PO DAILY #84 tabs 07/11/22 0.3 mg-1.5 mg tablet (Prempro) metoprolol succinate 25 mg 25 mg PO DAILY #90 tabs 07/15/22 tablet,extended release 24 hr omeprazole magnesium 20 mg 20 mg PO DAILY #90 tabs 08/03/22 tablet,delayed release (Prilosec OTC) atorvastatin 40 mg tablet 40 mg PO DAILY #90 tabs 08/22/22 fenofibrate nanocrystallized 145 145 mg PO DAILY #90 tabs 08/22/22 mg tablet (Tricor) bisacodyl 5 mg tablet,delayed 5 mg PO ONCE colonscopy bowel prep 09/15/22 release (Dulcolax (bisacodyl)) #4 tabs doxycycline hyclate 100 mg capsule 100 mg PO BID #30 caps 09/15/22 polyethylene glycol 3350 17 238 g PO ONCE colonoscopy prep 09/15/22 gram/dose oral powder #238 grams ciprofloxacin HCl 500 mg tablet 500 mg PO BID 5 days #10 tabs 11/11/22 metronidazole 500 mg tablet 500 mg PO TID 7 days #21 tabs 11/11/22 amoxicillin 875 mg-potassium 1 tab PO BID #14 tabs 11/14/22 clavulanate 125 mg tablet ondansetron 4 mg disintegrating 4 mg PO TID PRN nausea and 11/14/22 tablet vomiting 5 days #15 tabs Allergies Allergy/AdvReac Type Severity Reaction Status Date / Time losartan Allergy Intermediate angioedema Verified 09/15/22 09:29 trazodone AdvReac Intermediate Headache Verified 09/15/22 09:29 codeine [Codeine] AdvReac heart Verified 09/15/22 09:29 racing lidocaine AdvReac heart Verified 09/15/22 09:29 racing General Stated Complaint: Abd Prob GLORIA: 3 Review of Systems Narrative: CONST: low grade fevers, no chills. HEENT: no sore throat SKIN: no rashes PULM: no sob, no cough CARD: no cp, no palpitations ABD: +abd pain, +nausea EXTR: no swelling NEURO: No focal weakness PFSH All Active Problems (Updated 11/14/22 @ 11:12 by Nathan Torres MD) Diverticulitis (Chronic) Hypokalemia (Acute) Diverticulosis (Acute) Chronic constipation (Acute) Acute diverticulitis (Acute) Adjustment disorder with anxious mood (Acute) Essential hypertension (Acute) Hyperlipidemia LDL goal <130 (Acute) C. difficile colitis (Acute) Left lower quadrant pain (Acute) Depression (Chronic) Dizziness (Acute) Hot flashes (Acute) Tobacco abuse (Acute) Leg pain, bilateral (Acute) Upper respiratory infection (Acute) Ovarian mass, right (Acute) we will get u/s, as suggested tylenol as needed for pain Medical History Diverticulitis Peritonsillar abscess Tonsillar hypertrophy Surgical History HYSTERECTOMY Supracervical Ligation of fallopian tube Family History Mother Hyperlipidemia Father Essential hypertension Sister No problems noted. Brother Hyperlipidemia Grandfather No problems noted. Grandfather Personal history of malignant neoplasm COLON Grandmother No problems noted. Grandmother Personal history of malignant neoplasm PANCREATIC Social History Smoking/Tobacco Use Status: Current every day Tobacco Type: cigarettes Tobacco: How many years used: 35 Quit status: has quit before Second Hand Exposure: Yes Smoking risk assessment performed?: Yes Alcohol Intake: current Alcohol Intake frequency: a few times a month Alcohol type: beer Drug use: Rarely Substance use type: marijuana Details: Hasnt smoked since 08/15/20. 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 Pets and animals: Yes Pets and animals: dog(s) Sexually active: Yes Do you think of yourself as: straight/heterosexual Current gender identity: female What is your relationship status?: How often do you talk on the phone with friends or family?: twice per week How often do you get together with friends or relatives?: twice per week How often do you attend zoroastrian or yazidi services?: decline to answer Do you belong to any clubs or organized social groups?: no Panel score (0-1 are the most socially isolated patients): 2 What type of physical activity do you participate in: walking Duration: 15-30 minutes/day Frequency: 1-2 times per week Rekha/Episcopal: None Special rekha needs: No Seatbelt use: always Helmet use: Yes Helmet use: always Drive intox or ride w/intox yard truck driver: No Do you feel safe at home: Yes Do you feel safe in your relationship?: Yes Exam Narrative Exam Narrative: Const: well appearing, no acute distress HEENT: normocephalic, atraumatic; MMM Lungs: CTA, no wheezing or rales Heart: RRR Abd: soft, Left sided and suprapubic tenderness Ext: well perfused Neuro: non-focal Skin: no rashes Course 52 year old female with hx of diverticultis, worsening abd pain despite out-pt abx for presumed diverticulitis, will check labs, CT. Pt declining meds at this time Reevaluation(s) Initial Evaluation: 1056 - spoke to the radiologist about CT, diverticulitis, no abscess or free air. Reevaluation: 1128 - spoke to the hospitalist, discussed all pertinent aspects of case, not strong feelings requires admission, reasonable to change abx and see how she does, and if continues to not do well then can always admit later. Discussed with pt, is agreeable to this plan. She was given po K, and will change to Augmentin, zofran prn. Vital Signs Vital signs: Vital Signs Temperature 36.8 C 11/14/22 08:56 Pulse 87 11/14/22 08:56 Respiratory Rate 18 11/14/22 08:56 Blood Pressure 180/96 H 11/14/22 08:56 Pulse Oximetry 99 11/14/22 08:56 Temperature 36.8 C 11/14/22 08:56 Temperature Source Oral 11/14/22 08:56 Pulse 87 11/14/22 08:56 Respiratory Rate 18 11/14/22 08:56 Blood Pressure 180/96 H 11/14/22 08:56 Blood Pressure Position Sitting 11/14/22 08:56 Pulse Oximetry 99 11/14/22 08:56 Oxygen Delivery Method Room Air 11/14/22 08:56 Oxygen Flow Rate 0 11/14/22 08:56 Pain Level 6 11/14/22 08:56
[2022-11-14 09:25] LABS: Bilirubin Negative (Negative); Blood Negative (Negative); Clarity Clear (Clear); Glucose Negative (Negative); Ketones Negative (Negative); Leukocyte Esterase Negative (Negative); Nitrite Negative (Negative); Specific Gravity 1.015 (1.005-1.025); Urobilinogen 0.2 mg/dL (Up to 0.2); pH 6.5 (5-8)
[2022-11-14 09:32] LABS: Lactate 1.4 mmol/L (0.6-1.4)
[2022-11-14 09:33] LABS: HCT 41.2 % (36.0-46.0); HGB 14.1 g/dL (11.2-15.7); MCH 30.7 pg (27.0-33.0); MCHC 34.2 % (32.0-36.0); MCV 90 fL (80-95); MPV 10.7 fL (8.0-11.0); Platelet Count 324 10^3/uL (130-400); RDW 13.2 % (11.7-14.6); RDW-SD 43.4 fL; WBC 5.54 10^3/uL (4.4-10.8)
[2022-11-14] MEDS: Normal Saline 1,000 ML 1000 ML IV (09:34)
[2022-11-14 09:50] LABS: ALT 28 U/L (14-59); AST 21 U/L (15-37); Albumin 3.9 g/dL (3.4-5.0); Alkaline Phosphatase 57 U/L (46-116); Anion Gap 13.6 mmol/L (3-11); BUN 12 mg/dL (7-18); Bilirubin, Total 0.2 mg/dL (0.2-1.0); CO2 26.4 mmol/L (21.0-32.0); CREATININE 1.1 mg/dL (0.55-1.02); Calcium 9.1 mg/dL (8.5-10.1); Chloride 102 mmol/L (98-107); Estimated GFR 60.46 (mL/min/1.73m2); Glucose 101 mg/dL (74-106); Lipase 40 U/L (16-77); Potassium 3.1 mmol/L (3.5-5.1); Sodium 142 mmol/L (136-145); Total Protein 8.6 g/dL (6.4-8.2)
[2022-11-14] MEDS: Omnipaque 350 MG/ML 500 ML BTL-Imaging package IJ (09:56)
[2022-11-14] MEDS: Normal Saline - Diluent 50 ML VIAL IJ (09:57)
[2022-11-14] MEDS: Potassium Chloride Liquid 20 MEQ PKT PO (11:14)
[2022-11-14 12:03] LABS: Lab Add On Test DONE
[2022-11-14 12:13] LABS: C-Reactive Protein 0.62 mg/dL (0.0-0.3)
== END 2022-11-14 11:54 | disposition home or self-care (01) ==
PROVIDERS: Surgery; Emergency Provider Emergency Medicine; PCP Family Medicine
DX: E87.6 Hypokalemia (principal); K57.92 Diverticulitis of intestine, part unspecified, without perforation or abscess without bleeding
CPT/HCPCS: 80053; 83690; 85027; 96360; 96361; 99285; 74177; 81003; 83605; 86140; 99284

== ENCOUNTER 2022-11-28 12:08 | Observation (INO) | payer MEDICAID, SELFPAY ==
--- NOTE | 2022-11-28 12:13 | HPE_ITS ---
Date of service: 11/28/22 Time of Service: 12:13 Assessment and Plan Assessment and plan (1) Diverticulitis: Status: Chronic Assessment and plan: Incompletely treated diverticulitis. -This is her fourth episode in 2022 of diverticulitis. I think it would be prudent to admit her for IV antibiotics for 24 to 48 hours to get this completely resolved. In some point she does need to get a colonoscopy. We discussed the role of the colon indigestion. We briefly touched on the fact that if we cannot get this infection completely cleared up and we might need to consider surgery on her. At this time she does not appear toxic or have any peritoneal signs. But she is definitely not back to her baseline. She will be admitted for IV antibiotics and labs. We will see how she feels in the next 24 hours. History of Present Illness Narrative: Patient was seen in my office today. Patient has had multiple recurrent episod es of diverticulitis. Fourth episode in 2022. She had diverticulitis in August. She did a weeks worth of Cipro and Flagyl the third week in December 07 through . I do not think she completely completed the Cipro/Flagyl prescription, because she still had antibiotics left over. she then had recurrent pain November 14 and went to the ER. She had no fever or white count on November 14. She did have a CT on November 14 which did show signs of acute diverticulitis. She was placed on a 5 days worth of Augmentin. When she finished that up the Augmentin prescription. On Monday she was again having abdominal pain. So she took more Cipro and Flagyl, but only for 24 hours. She had no pain after 24 hours. She only used the antibiotics for 24 hours. Today she feels better but not great. She has no fever or chills. She has no nausea vomiting. Her stools are loose, But no more so than 1 bowel movement today. She has minimal pain in the left lower quadrant but still does not feel back to normal. She also has a history of C. difficile. She cannot remember when antibiotic cause C. difficile. Review of Systems All systems reviewed & are unremarkable except as noted in HPI and below PFSH All Active Problems Diverticulitis (Chronic) Hypokalemia (Acute) Diverticulosis (Acute) Chronic constipation (Acute) Acute diverticulitis (Acute) Adjustment disorder with anxious mood (Acute) Essential hypertension (Acute) Hyperlipidemia LDL goal <130 (Acute) C. difficile colitis (Acute) Left lower quadrant pain (Acute) Depression (Chronic) Dizziness (Acute) Hot flashes (Acute) Tobacco abuse (Acute) Leg pain, bilateral (Acute) Upper respiratory infection (Acute) Ovarian mass, right (Acute) we will get u/s, as suggested tylenol as needed for pain Medical History Diverticulitis Peritonsillar abscess Tonsillar hypertrophy Surgical History HYSTERECTOMY Supracervical Ligation of fallopian tube Family History Mother Hyperlipidemia Father Essential hypertension Sister No problems noted. Brother Hyperlipidemia Grandfather No problems noted. Grandfather Personal history of malignant neoplasm COLON Grandmother No problems noted. Grandmother Personal history of malignant neoplasm PANCREATIC Social History Smoking/Tobacco Use Status: Current every day Tobacco Type: cigarettes Tobacco: How many years used: 35 Quit status: has quit before Second Hand Exposure: Yes Smoking risk assessment performed?: Yes Alcohol Intake: current Alcohol Intake frequency: a few times a month Alcohol type: beer Drug use: Rarely Substance use type: marijuana Details: Hasnt smoked since 08/15/20. 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 Pets and animals: Yes Pets and animals: dog(s) Sexually active: Yes Do you think of yourself as: straight/heterosexual Current gender identity: female What is your relationship status?: How often do you talk on the phone with friends or family?: twice per week How often do you get together with friends or relatives?: twice per week How often do you attend voodoo or nondenominational services?: decline to answer Do you belong to any clubs or organized social groups?: no Panel score (0-1 are the most socially isolated patients): 2 What type of physical activity do you participate in: walking Duration: 15-30 minutes/day Frequency: 1-2 times per week Rekha/Pentecostal: None Special rekha needs: No Seatbelt use: always Helmet use: Yes Helmet use: always Drive intox or ride w/intox limb driver: No Do you feel safe at home: Yes Do you feel safe in your relationship?: Yes Meds Allergies and Home Medications Allergies Allergy/AdvReac Type Severity Reaction Status Date / Time losartan Allergy Intermediate angioedema Verified 11/28/22 11:10 trazodone AdvReac Intermediate Headache Verified 11/28/22 11:10 codeine [Codeine] AdvReac heart Verified 11/28/22 11:10 racing lidocaine AdvReac heart Verified 11/28/22 11:10 racing Home Medications Medication Instructions Recorded Confirmed Type mirtazapine 15 mg tablet (Remeron) 15 mg PO DAILY #90 tabs 03/10/22 09/17/22 Rx conj estrogen-medroxyprogesterone 1 tab PO DAILY #84 tabs 07/11/22 09/17/22 Rx 0.3 mg-1.5 mg tablet (Prempro) metoprolol succinate 25 mg 25 mg PO DAILY #90 tabs 07/15/22 09/17/22 Rx tablet,extended release 24 hr omeprazole magnesium 20 mg 20 mg PO DAILY #90 tabs 08/03/22 09/17/22 Rx tablet,delayed release (Prilosec OTC) atorvastatin 40 mg tablet 40 mg PO DAILY #90 tabs 08/22/22 09/17/22 Rx fenofibrate nanocrystallized 145 145 mg PO DAILY #90 tabs 08/22/22 09/17/22 Rx mg tablet (Tricor) doxycycline hyclate 100 mg capsule 100 mg PO BID #30 caps 09/15/22 09/15/22 Rx inulin 2 gram chewable tablet g PO DAILY 09/15/22 09/17/22 History (Fiber Gummies) amoxicillin 875 mg-potassium 1 tab PO BID 7 days #14 tabs 11/28/22 11/28/22 Rx clavulanate 125 mg tablet Exam Const General: cooperative and healthy appearing Nutritional Appearance: average body habitus Orientation: alert, awake and oriented x3 Other: PHYSICAL EXAM GENERAL APPEARANCE: Alert, healthy appearance, oriented, x 3,? in no acute distress HYDRATION: Well hydrated HEAD, EYES, EARS, NECK, THROAT: Head is normocephalic, pupils equal, round, reactive to light and accommodation, ocular movement intact, sclera clear and no jaundice. ?Dentition intact. NECK: no lymphadenopathy.? Trachea midline.? Neck supple.? No JVD LUNGS: normal respiration/normal chest excursion. ?Clear to auscultation bilaterally. ?No wheeze. ?HEART: Regular rate and rhythm. no murmurs ABDOMEN: soft and non-tender to palpation.? Normal bowel sounds.? Results Labs 11/28/22 12:12 Time Spent Time spent with Patient: 40-54 minutes Time was spent: preparing to see the patient(eg.review tests), obtaining and/or reviewing separately otained hiistory, ordering medications,tests, procedures, referring, communicating with other health memory care program director, indepentently interpreting results, counseling the patient and care coordination
[2022-11-28 13:40] VITALS: BP 162/88; PULSE 90; TEMP 37.5; O2SAT 18
[2022-11-28 14:54] LABS: Abs Immature Grans 0.02 10^3/uL (0.0-0.06); Absolute Basophil Count 0.04 10^3/uL (0.0-0.2); Absolute Eosinophil Count 0.05 10^3/uL (0.0-0.7); Absolute Lymphocyte Count 1.59 10^3/uL (1.2-3.4); Absolute Monocyte Count 0.52 10^3/uL (0.1-0.8); Basophils % 0.6; Eosinophils % 0.8; HCT 37.5 % (36.0-46.0); HGB 12.7 g/dL (11.2-15.7); Immature Grans % 0.3; Lymphocytes % 25.2; MCH 30.5 pg (27.0-33.0); MCHC 33.9 % (32.0-36.0); MCV 90 fL (80-95); MPV 11.3 fL (8.0-11.0); Monocytes % 8.2; Neutrophils % 64.9; Platelet Count 297 10^3/uL (130-400); RBC 4.17 10^6/uL (3.93-5.22); RDW 13.3 % (11.7-14.6); RDW-SD 43.9 fL; WBC 6.32 10^3/uL (4.4-10.8)
[2022-11-28] MEDS: PIPERACILLIN/TAZO 3.375 GM in Normal Saline 50 ML IVPB ×2 (14:59→22:14)
[2022-11-28] MEDS: Enoxaparin 40 MG/0.4 ML SYR SC (15:01)
[2022-11-28 15:09] LABS: C-Reactive Protein 0.28 mg/dL (0.0-0.3)
[2022-11-28 15:16] VITALS: BP 144/93; PULSE 63; RESP 16; TEMP 37.3; O2SAT 98
[2022-11-28 20:06] VITALS: BP 162/98; PULSE 61; RESP 14; TEMP 37.2; O2SAT 96
[2022-11-29] MEDS: PIPERACILLIN/TAZO 3.375 GM in Normal Saline 50 ML IVPB ×2 (02:12→08:29)
[2022-11-29 03:31] VITALS: BP 128/83; PULSE 56; RESP 16; TEMP 36.1; O2SAT 97
[2022-11-29 07:35] VITALS: BP 151/92; PULSE 61; TEMP 36.6; O2SAT 96
[2022-11-29] MEDS: Psyllium PKT 1 EACH PO (08:29)
--- NOTE | 2022-11-29 09:45 | PDOC.CMIN ---
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 She is independent at baseline. CURRENT FUNCTIONAL STATUS:: Omaira was discharged before was able to meet with her. Her symptoms resolved overnight with IV antibiotics and she will go home on a course of Augmentin. No services needed. ADVANCE DIRECTIVES:: none on file Has patient been provided with info about the portal/API?: Yes Did the patient sign up for the portal?: Yes CODE STATUS:: Full Code INSURANCE COVERAGE / FINANCIAL ISSUES:: medicaid CURRENT HOME/COMMUNITY SERVICES/EQUIPMENT:: none PRIMARY CARE PHYSICIAN:: Charanjit Arias POTENTIAL DISCHARGE NEEDS:: follow up with PCP and plan of care PATIENT/FAMILY EDUCATION NEEDS:: Review of discharge instructions, activity, limitations, follow up plan, discuss Ask Me Three TRANSPORTATION:: via private vehicle with family PLAN:: Omaira will be discharged home with no new services. She will follow up with her surgeon, PCP and plan of care and transport with family. PFSH All Active Problems Diverticulitis (Chronic) Hypokalemia (Acute) Diverticulosis (Acute) Chronic constipation (Acute) Acute diverticulitis (Acute) Adjustment disorder with anxious mood (Acute) Essential hypertension (Acute) Hyperlipidemia LDL goal <130 (Acute) C. difficile colitis (Acute) Left lower quadrant pain (Acute) Depression (Chronic) Dizziness (Acute) Hot flashes (Acute) Tobacco abuse (Acute) Leg pain, bilateral (Acute) Upper respiratory infection (Acute) Ovarian mass, right (Acute) we will get u/s, as suggested tylenol as needed for pain Medical History Diverticulitis Peritonsillar abscess Tonsillar hypertrophy Surgical History HYSTERECTOMY Supracervical Ligation of fallopian tube Family History Mother Hyperlipidemia Father Essential hypertension Sister No problems noted. Brother Hyperlipidemia Grandfather No problems noted. Grandfather Personal history of malignant neoplasm COLON Grandmother No problems noted. Grandmother Personal history of malignant neoplasm PANCREATIC Social History Smoking/Tobacco Use Status: Current every day Tobacco Type: cigarettes Tobacco: How many years used: 35 Quit status: has quit before Second Hand Exposure: Yes Smoking risk assessment performed?: Yes Alcohol Intake: current Alcohol Intake frequency: a few times a month Alcohol type: beer Drug use: Rarely Substance use type: marijuana Details: Hasnt smoked since 08/15/20. 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 Pets and animals: Yes Pets and animals: dog(s) Sexually active: Yes Do you think of yourself as: straight/heterosexual Current gender identity: female What is your relationship status?: How often do you talk on the phone with friends or family?: twice per week How often do you get together with friends or relatives?: twice per week How often do you attend adventist or advent services?: decline to answer Do you belong to any clubs or organized social groups?: no Panel score (0-1 are the most socially isolated patients): 2 What type of physical activity do you participate in: walking Duration: 15-30 minutes/day Frequency: 1-2 times per week Rekha/Moravian: None Special rekha needs: No Seatbelt use: always Helmet use: Yes Helmet use: always Drive intox or ride w/intox warehouse driver: No Do you feel safe at home: Yes Do you feel safe in your relationship?: Yes
--- NOTE | 2022-11-29 09:51 | W.PM.PROGNOT ---
Date of Service Date of service: 11/29/22 Time of Service: 09:51 Assessment and Plan Assessment and plan (1) Diverticulitis: Status: Chronic Assessment and plan: Incompletely treated diverticulitis. Admitted for IV antibiotics No leukocytosis tolerating regular diet D/C home today on PO Augmentin Follow up in the office in 10-14 days Subjective Subjective Interval history since last seen: Arrive with patient lying in bed. Tolerated breakfast well. Describes she is feeling okay this morning. Exam Const General: cooperative, healthy appearing and comfortable Orientation: alert and oriented x3 Resp Effort & Inspection: normal respiratory effort, no audible wheezes and no cough GI Inspection: normal to inspection and non-distended Objective Last Vital Signs Temp 36.6 C 11/29/22 07:35 Pulse 61 11/29/22 07:35 Resp 16 11/29/22 03:31 BP 151/92 H 11/29/22 07:35 Pulse Ox 96 11/29/22 07:35 Laboratory Results - last 24 hr 11/28/22 11/28/22 14:32 14:32 WBC 6.32 RBC 4.17 Hgb 12.7 Hct 37.5 MCV 90 MCH 30.5 MCHC 33.9 RDW 13.3 Plt Count 297 MPV 11.3 H Immature Gran % 0.3 Neutrophils % 64.9 Lymphocytes % 25.2 Monocytes % 8.2 Eosinophils % 0.8 Basophils % 0.6 Nucleated RBC % 0.0 Absolute Neutrophils 4.10 Absolute Lymphocytes 1.59 Absolute Monocytes 0.52 Absolute Eosinophils 0.05 Absolute Basophils 0.04 C-Reactive Protein 0.28 Time Spent with Patient Time Spent with Patient: <25 minutes Time was spent: preparing to see the patient(eg.review tests), obtaining and/or reviewing separately otained hiistory, ordering medications,tests, procedures, referring, communicating with other health manager respiratory care, indepentently interpreting results, counseling the patient and care coordination
--- NOTE | 2022-11-29 09:53 | W.PM.DS.N ---
Date of service: 11/29/22 Time of Service: 09:53 DS: Diagnosis Discharge Diagnosis (1) Diverticulitis: Status: Chronic Discharge Plan Disposition Patient Disposition: Home Condition: Improving Discharge Details Reason For Visit: Direct Admit- Diverticulosis Admit Date/Time: 11/28/22 12:08 Admit Provider: Shagufta Becerra Attending Provider: Shagufta Becerra Primary Care Provider: Charanjit Arias Hospital Course Hospital Course: 52 y/o female with her fourth episode of diverticulitis in 2022. She was admitted overnight for IV antibiotics, which subjectively started to improve her symptoms. No fevers, chills or night sweats. No leukocytosis. She has been tolerating a regular diet. Will d/c home on a course of Augmentin. Follow up with the surgical office in 10-14 days. Home Meds and New Rx's Prescriptions: Continued omeprazole magnesium [Prilosec OTC] 20 mg tablet,delayed release (DR/EC) 20 mg PO DAILY Qty: 90 3RF mirtazapine [Remeron] 15 mg tablet 15 mg PO DAILY Qty: 90 3RF Fiber Gummies 2 gram tablet,chewable PO DAILY doxycycline hyclate 100 mg capsule 100 mg PO BID Qty: 30 3RF amoxicillin-pot clavulanate 875-125 mg tablet 1 tab PO BID 7 Days Qty: 14 0RF Prempro 0.3-1.5 mg tablet 1 tab PO DAILY Qty: 84 2RF metoprolol succinate 25 mg tablet extended release 24 hr 25 mg PO DAILY Qty: 90 3RF atorvastatin 40 mg tablet 40 mg PO DAILY Qty: 90 3RF fenofibrate nanocrystallized [Tricor] 145 mg tablet 145 mg PO DAILY Qty: 90 3RF Discharge Instructions Instructions: Diverticulitis (DC), Diverticulitis Diet (DC) Additional Instructions: If your discomfort returns or worsens, you begin to have fevers, chills, nausea or vomiting please call the surgical office or return to the ER. This would be concerning that the by mouth antibiotics are not working. Stand Alone Forms: Nursing Discharge Form Referrals: Shagufta Becerra DO [OSTEOPATHIC DOCTOR] - 12/12/22 2:30 pm Activity:: Activity as Tolerated Equipment/Supplies:: No Equipment Needed Diet:: As Tolerated Discharge Orders Discharge Orders: Discharge Order (Routine); Ordered 11/29/22 Ordered By: Patricia Martinez Discharge Data Discharge Date/Time-TO BE ENTERED AT DEPARTURE: 11/29/22 10:44 DS: Summary Time Spent with Patient providing and/or coordinating discharge services: Less than 30 minutes Status at Discharge Functional status at discharge: independent ambulation Overall status at discharge: patient is back to baseline Mental Status: mental status grossly normal Speech and Movement: speech and movement normal Mood: congruent mood Affect: normal affect Exam Const General: cooperative, healthy appearing and comfortable Orientation: alert and oriented x3 Resp Effort & Inspection: normal respiratory effort, no audible wheezes and no cough GI Inspection: normal to inspection Psych Mental Status: mental status grossly normal Speech and Movement: speech and movement normal Mood: congruent mood Affect: normal affect DS: Data Vitals/I&O Vitals and I&O: Vital Signs Temperature 36.6 C 11/29/22 07:35 Temperature Source Tympanic 11/29/22 07:35 Pulse 61 11/29/22 07:35 Pulse Rhythm Regular 11/29/22 08:00 Respiratory Rate 16 11/29/22 03:31 Respiratory Effort Normal 11/29/22 08:00 Respiratory Depth Normal 11/29/22 08:00 Respiratory Pattern Normal 11/29/22 08:00 Blood Pressure 151/92 H 11/29/22 07:35 Pulse Oximetry 96 11/29/22 07:35 Oxygen Delivery Method Room Air 11/29/22 07:35 Oxygen Flow Rate 0 11/29/22 07:35 Pain Level 0 11/29/22 03:31 Comment al griffin notified 11/29/22 03:31 Intake & Output 11/28/22 11/29/22 11/29/22 18:59 06:59 18:59 Intake Total 150 / 150 370 / 370 Balance 150 / 150 370 / 370 Intake: IV 150 / 150 10 10 Oral 360 / 360 Other: Urine Appearance Clear Data Completed and Pending Labs on day of discharge: Labs from last 24 hours 11/28/22 11/28/22 14:32 14:32 WBC 6.32 RBC 4.17 Hgb 12.7 Hct 37.5 MCV 90 MCH 30.5 MCHC 33.9 RDW 13.3 Plt Count 297 MPV 11.3 H Immature Gran % 0.3 Neutrophils % 64.9 Lymphocytes % 25.2 Monocytes % 8.2 Eosinophils % 0.8 Basophils % 0.6 Nucleated RBC % 0.0 Absolute Neutrophils 4.10 Absolute Lymphocytes 1.59 Absolute Monocytes 0.52 Absolute Eosinophils 0.05 Absolute Basophils 0.04 C-Reactive Protein 0.28 11/28/22 16:00 Blood Blood Culture - Pending 11/28/22 14:32 Blood Blood Culture - Pending Preliminary micro results at discharge 11/28/22 16:00 Blood Culture - Pending Blood 11/28/22 14:32 Blood Culture - Pending Blood [facility] All Active Problems Diverticulitis (Chronic) Hypokalemia (Acute) Diverticulosis (Acute) Chronic constipation (Acute) Acute diverticulitis (Acute) Adjustment disorder with anxious mood (Acute) Essential hypertension (Acute) Hyperlipidemia LDL goal <130 (Acute) C. difficile colitis (Acute) Left lower quadrant pain (Acute) Depression (Chronic) Dizziness (Acute) Hot flashes (Acute) Tobacco abuse (Acute) Leg pain, bilateral (Acute) Upper respiratory infection (Acute) Ovarian mass, right (Acute) we will get u/s, as suggested tylenol as needed for pain Medical History Diverticulitis Peritonsillar abscess Tonsillar hypertrophy Surgical History HYSTERECTOMY Supracervical Ligation of fallopian tube Family History Mother Hyperlipidemia Father Essential hypertension Sister No problems noted. Brother Hyperlipidemia Grandfather No problems noted. Grandfather Personal history of malignant neoplasm COLON Grandmother No problems noted. Grandmother Personal history of malignant neoplasm PANCREATIC Social History Smoking/Tobacco Use Status: Current every day Tobacco Type: cigarettes Tobacco: How many years used: 35 Quit status: has quit before Second Hand Exposure: Yes Smoking risk assessment performed?: Yes Alcohol Intake: current Alcohol Intake frequency: a few times a month Alcohol type: beer Drug use: Rarely Substance use type: marijuana Details: Hasnt smoked since 08/15/20. 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 Pets and animals: Yes Pets and animals: dog(s) Sexually active: Yes Do you think of yourself as: straight/heterosexual Current gender identity: female What is your relationship status?: How often do you talk on the phone with friends or family?: twice per week How often do you get together with friends or relatives?: twice per week How often do you attend faith or confucianist services?: decline to answer Do you belong to any clubs or organized social groups?: no Panel score (0-1 are the most socially isolated patients): 2 What type of physical activity do you participate in: walking Duration: 15-30 minutes/day Frequency: 1-2 times per week Rekha/Anabaptism: None Special rekha needs: No Seatbelt use: always Helmet use: Yes Helmet use: always Drive intox or ride w/intox 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
--- NOTE | 2022-11-29 17:07 | PDOC.CMDIS ---
Date of service: 11/29/22 Time of Service: 17:07 LACE Index Scoring Tool Questions: Length of Stay (in days): 1 Was the patient admitted via the E.D.?: No E.D. Visits: 3 Answers: Total Score: 4 Risk of Readmission: Low Risk Care Management Discharge Plan Reason for Hospitalization: Diverticulitis Discharge Plan: Omaira will be discharged home with no new services. She will follow up with her surgeon, PCP and plan of care and transport with family. Patient/Family Education Needs: Review of discharge instructions, activity, limitations, follow up plan, discuss Ask Me Three
== END 2022-11-29 10:44 | disposition home or self-care (01) ==
PROVIDERS: Admitting Provider Surgery; PCP Family Medicine; Visit Provider Surgery
DX: K57.32 Diverticulitis of large intestine without perforation or abscess without bleeding (principal); E87.6 Hypokalemia; K59.09 Other constipation; I10 Essential (primary) hypertension; E78.5 Hyperlipidemia, unspecified; F32.A Depression, unspecified; F17.210 Nicotine dependence, cigarettes, uncomplicated; R10.32 Left lower quadrant pain; F43.22 Adjustment disorder with anxiety; Z80.0 Family history of malignant neoplasm of digestive organs
CPT/HCPCS: 87040; 96365; 96366; J1650; 85025; 86140; G0378; J2543

== ENCOUNTER 2023-01-17 06:12 | Day surgery (SDC) | payer MEDICAID, SELFPAY ==
--- NOTE | 2023-01-16 12:40 | PDOC.DSDIS_ITS ---
Date of service: 01/17/23 Time of Service: 09:06 Discharge Plan Disposition Patient Disposition: Home Discharge Details Attending Provider: Shagufta Becerra Primary Care Provider: Charanjit Arias Home Meds and New Rx's Prescriptions: No Action omeprazole magnesium [Prilosec OTC] 20 mg tablet,delayed release (DR/EC) 20 mg PO DAILY Qty: 90 3RF mirtazapine [Remeron] 15 mg tablet 15 mg PO DAILY Qty: 90 3RF Fiber Gummies 2 gram tablet,chewable 2 g PO DAILY hydrochlorothiazide 12.5 mg tablet 12.5 mg PO DAILY Qty: 90 3RF metoprolol succinate 50 mg tablet extended release 24 hr 50 mg PO DAILY Qty: 90 3RF Prempro 0.3-1.5 mg tablet 1 tab PO DAILY Qty: 84 2RF atorvastatin 40 mg tablet 40 mg PO DAILY Qty: 90 3RF fenofibrate nanocrystallized [Tricor] 145 mg tablet 145 mg PO DAILY Qty: 90 3RF Discharge Instructions Activity:: see above Diet:: see above Discharge Orders Discharge Orders: Discharge Order (Routine); Ordered 01/17/23 Ordered By: Shagufta Becerra DS: Diagnosis Discharge Diagnosis (1) Diverticulosis: Status: Acute Asessment and Plan: Post [place] Note/Eval The patient is seen and examined after their colonoscopy.? The patient has been able to pass gas.? They are not having abdominal pain.? They have been able to tolerate liquids and a snack.? They do not have any nausea or vomiting.? They are not having any chest pain or shortness of breath.??? They are not having any rectal bleeding. Their vital signs have been stable-see nursing notes. We discussed findings during their colonoscopy, and any biopsies that were done/polyps that were removed. The patient will be sent a letter with any biopsy results, and when to repeat the colonoscopy.-see discharge instructions. Patient was given explicit instructions to follow-up regarding colonoscopy-refer to discharge instructions.? We reviewed resumption of medications. Patient verbalized understanding and discharged in stable and satisfactory condition- See nursing notes. (2) Chronic constipation: Status: Acute (3) Tobacco abuse: Status: Acute (4) Left lower quadrant pain: Status: Acute
--- NOTE | 2023-01-16 13:03 | W.COLOREPORT ---
Date of service: 01/17/23 Time of Service: 08:00 Colonoscopy Report Pre-op diagnosis general: Diverticulosis/recurrent diverticulitis Surgeon: Shagufta Becerra Anesthesia Type: General:No Airway Complications: None Disposition: same day Prep: Miralax/Dulcolax Procedure Description: After informed consent was obtained the patient was taken to the procedure room and placed in a left decubitous position. Monitors were applied and a time out was done. The patients name, date of , procedure, allergies to medications and metal in their body was reviewed. The patient was then sedated. Once sedated and comfortable a rectal exam was done. External exam was normal. Internal exam revealed a normal sphincter tone and no palpable masses. The prostate []. The scope was then introduced and retrofelexed. [] internal hemorrhoids were identified. The scope was then advanced to the cecum [] difficulty. The TI and appendiceal orifice were identified. The prep was []. The scope was then slowly retracted over [] minutes back into the rectum. Polyps were removed at []. The scope was removed and the patient was woken up and taken back to Same day surgery in stable condition. The patient tolerated the procedure well and there were no immediate complications. Follow up: The patient should follow up in [] years unless they develop changes in bowel habits or other new gastrointestinal complaints.
[2023-01-17 06:21] VITALS: BP 112/91; PULSE 75; RESP 17; TEMP 36.7; O2SAT 99
[2023-01-17] MEDS: Lactated Ringers 1,000 ML 80 ML IV (06:37)
--- NOTE | 2023-01-17 06:58 | W.ANESPRE ---
General Info Date of Service Date Performed: 01/17/23 Height: 5 ft 3 in Weight: 69.9 kg Body Mass Index (BMI): 27.3 Surgical Procedure: Operation Date: 01/17/23 07:35 Proposed Procedure Side Surgeon yanet Becerra, DO Meds Allergies and Home Medications Allergies Allergy/AdvReac Type Severity Reaction Status Date / Time losartan Allergy Intermediate angioedema Verified 01/17/23 06:26 trazodone AdvReac Intermediate Headache Verified 01/17/23 06:26 codeine [Codeine] AdvReac heart Verified 01/17/23 06:26 racing lidocaine AdvReac heart Verified 01/17/23 06:26 racing Home Medication Medication Instructions Recorded mirtazapine 15 mg tablet (Remeron) 15 mg PO DAILY #90 tabs 03/10/22 conj estrogen-medroxyprogesterone 1 tab PO DAILY #84 tabs 07/11/22 0.3 mg-1.5 mg tablet (Prempro) omeprazole magnesium 20 mg 20 mg PO DAILY #90 tabs 08/03/22 tablet,delayed release (Prilosec OTC) atorvastatin 40 mg tablet 40 mg PO DAILY #90 tabs 08/22/22 fenofibrate nanocrystallized 145 145 mg PO DAILY #90 tabs 08/22/22 mg tablet (Tricor) inulin 2 gram chewable tablet 2 g PO DAILY 09/15/22 (Fiber Gummies) hydrochlorothiazide 12.5 mg tablet 12.5 mg PO DAILY #90 tabs 12/15/22 metoprolol succinate 50 mg 50 mg PO DAILY #90 tabs 12/15/22 tablet,extended release 24 hr Current Visit Medications: Current Medications Generic Name Dose Route Start Last Admin Trade Name Freq PRN Reason Stop Dose Admin Hyoscyamine Sulfate 0.125 mg 01/17/23 05:32 Hyoscyamine 0.125 Mg Sl/Oral/Chew SL 02/16/23 05:31 DIRECTED PRN Ringer's Solution 1,000 mls @ 80 mls/hr 01/17/23 06:00 01/17/23 06:37 IV 02/15/23 23:59 80 mls/hr INFUSION HUSSAIN Administration IV Miscellaneous Supplies 1 each 01/17/23 06:00 Iv Access IV 02/15/23 23:59 DIRECTED HUSSAIN Ondansetron HCl 4 mg 01/17/23 05:32 Ondansetron 4 Mg/2 Ml Vial IVP 02/16/23 05:31 Q4H PRN PRN Nausea / Vomiting Sodium Chloride 0 ml 01/17/23 06:00 Normal Saline Flush 10 Ml Syr IV 02/15/23 23:59 PRN PRN Sodium Chloride 0 ml 01/17/23 06:00 Normal Saline 10 Ml Vial IJ 02/15/23 23:59 DIRECTED PRN Sterile Water 0 ml 01/17/23 06:00 Water,Injection,Sterile 10 Ml Vial IJ 02/15/23 23:59 DIRECTED PRN PFSH Active Problems Active Problems: Problem Status Onset Code Diverticulosis K57.90 Chronic constipation K59.09 Adjustment disorder with anxious mood F43.22 Essential hypertension I10 Hyperlipidemia LDL goal <130 E78.5 C. difficile colitis A04.72 Left lower quadrant pain R10.32 Depression F32.9 Dizziness R42 Hot flashes R23.2 Tobacco abuse Z72.0 Leg pain, bilateral M79.604, M79.605 Upper respiratory infection J06.9 Ovarian mass, right N83.9 Medical History Medical History Acute diverticulitis Diverticulitis Peritonsillar abscess Tonsillar hypertrophy Surgical History Surgical History HYSTERECTOMY Supracervical Ligation of fallopian tube Tobacco Smoking/Tobacco Use Status: Current every day Tobacco Type: cigarettes Smoking cigarettes per day: 7 Passive smoking exposure: Yes Second hand exposure: Yes Alcohol Alcohol Intake: current Alcohol intake frequency: a few times a month Alcohol type: beer Substance Use Substance use type: does not use Vital Signs and Lab Results Vital Signs Most Recent Vital Signs in EMR: Most Recent Vital Signs Temp Pulse Resp BP Pulse Ox 36.7 C 75 17 112/91 H 99 01/17/23 06:21 01/17/23 06:21 01/17/23 06:21 01/17/23 06:21 01/17/23 06:21 Lab Results Blood Type / Crossmatch: No Data to Display Complete Blood Count: No Data to Display Complete Metabolic Panel: No Data to Display Liver Function Panel: No Data to Display Coagulation Panel: No Data to Display Cardiac Panel: No Data to Display Arterial Blood Gas: No Data to Display Venous Blood Gas: No Data to Display Pancreas Panel: No Data to Display Thyroid Panel: No Data to Display Infectious Disease: No Data to Display Blood Cultures: No Data to Display Toxicology Panel: No Data to Display Panel: No Data to Display Anesthesia Assessment and Plan Anesthesia History Personal History: No History of Anesthesia Complications Family History: No Family History of Anesthesia Complications Exercise Tolerance Exercise Tolerance: Metabolic Equivalents>4 Pertinent Negatives Pertinent Negatives: No Symptoms of GERD, No Major Cardiovascular Symptoms or Complaints and No Major Pulmonary Symptoms or Complaints Cardiac & Pulmonary Exam Cardiac Exam: Normal S1/S2 Heart Sounds Pulmonary Exam: Clear Bilateral Breath Sounds Implantable Cardiac Device Does patient have a Pacemaker or an ICD?: No Airway Exam Known Difficult Airway: No Mallampati Class: 2 Mouth Opening: Normal (> 3cm) Thyromental Distance: Greater than 3 cm Neck Range of Motion: Full ROM Neck Circumference: Normal Teeth Condition: Removable Dentures/Plates Upper ASA Classification ASA Score: ASA 2 Emergency Case?: No NPO Status NPO Status: NPO Clears >2 hours, Solids >8 hours Status Status: History of Hysterectomy Anesthesia Plan Resuscitation Status: Full Code Anesthesia Technique: General Anesthesia Airway Planned: Natural Airway Monitors Used: Standard Monitors
[2023-01-17 07:01] VITALS: BMI 27.3
--- NOTE | 2023-01-17 07:35 | BOWEL_PTH ---
PATIENT: Omaira Espinoza LOC: [facility] U#:[id number] AGE/SX: 52/F ROOM: RE01/17/[address]: Shagufta Becerra : 1970 BED: DIS: 01/17/2023 SPEC #: [id number] RECD: 01/17/23 12:57 STATUS: DEX REQ #: [id number] DARA: 01/17/23 07:[address]: Shagufta Becerra DEPT: Surgical Specimen RECD BY: Tiny Duvall ENTERED: 01/17/23 12:59 SP TYPE: Bowel OTHR DR: Charanjit Arias MD Tissues: 1 - BIOPSY BOWEL 2 - BIOPSY BOWEL 3 - BIOPSY BOWEL Procedures: GROSS AND MICRO LEVEL 4 Comments: [id number]
[2023-01-17 08:02] VITALS: BP 103/81; PULSE 71; RESP 16; TEMP 36.6; O2SAT 99
[2023-01-17] MEDS: Hyoscyamine 0.125 MG SL/ORAL/CHEW SL (08:33)
[2023-01-17] MEDS: metroNIDAZOLE 500 MG/100 ML BAG 100 MG IVPB (08:38)
--- NOTE | 2023-01-17 08:52 | W.ANESPOSTOP ---
Postoperative Evaluation Date, Time and Location Date Performed: 01/17/23 Time Performed: 08:52 Patient Location: Day Surgery Unit Vital Signs Most Recent Imported Vital Signs: Most Recent Vital Signs Temp Pulse Resp BP Pulse Ox 36.6 C 71 16 103/81 99 01/17/23 08:02 01/17/23 08:02 01/17/23 08:02 01/17/23 08:02 01/17/23 08:02 Pain Score Most Recent Pain Score: Most Recent Pain Score Pain Level 0 01/17/23 08:02 Assessment Mental Status: Awake (Alert & Oriented to Patient Baseline) Airway and Respiratory Function: Patent airway with normal (patient baseline) respiratory exam Cardiovascular Function: Hemodynamically Stable Hydration Status: Adequately Hydrated Nausea & Vomiting: No Nausea or Vomiting Pain: Pt. Denies Any Pain Peripheral Nerve Block: Patient did not receive a nerve block
[2023-01-17 08:53] VITALS: BP 141/82; PULSE 59; RESP 16; TEMP 37; O2SAT 98
[2023-01-17 09:30] VITALS: BP 108/81; PULSE 70; RESP 18; TEMP 37; O2SAT 96
[2023-01-17] MEDS: levoFLOXacin 750 MG/150 ML BAG 100 MG IVPB (09:45)
== END 2023-01-17 11:30 | disposition home or self-care (01) ==
PROVIDERS: PCP Family Medicine; Visit Provider Surgery
PROC: 0DJD8ZZ Inspection of Lower Intestinal Tract, Via Natural or Artificial Opening Endoscopic (ICD-10-PCS; CPT 45378; principal; 2023-01-17 07:30)
DX: Z12.11 Encounter for screening for malignant neoplasm of colon (principal); K57.30 Diverticulosis of large intestine without perforation or abscess without bleeding; K64.8 Other hemorrhoids
CPT/HCPCS: 45380; 88305; J1956; J3490

== ENCOUNTER 2023-03-20 13:55 | Outpatient (CLI) | payer MEDICAID, SELFPAY ==
[2023-03-20 09:29] LABS: Abs Immature Grans 0.06 10^3/uL (0.0-0.06); Absolute Basophil Count 0.08 10^3/uL (0.0-0.2); Absolute Eosinophil Count 0.06 10^3/uL (0.0-0.7); Absolute Lymphocyte Count 1.56 10^3/uL (1.2-3.4); Absolute Monocyte Count 0.64 10^3/uL (0.1-0.8); Absolute Neutrophil Count 5.68 10^3/uL (1.2-6.7); Eosinophils % 0.7; HCT 40.3 % (36.0-46.0); HGB 13.7 g/dL (11.2-15.7); Immature Grans % 0.7; Lymphocytes % 19.3; MCH 31.4 pg (27.0-33.0); MCV 92 fL (80-95); MPV 10.5 fL (8.0-11.0); Monocytes % 7.9; Neutrophils % 70.4; Platelet Count 295 10^3/uL (130-400); RBC 4.36 10^6/uL (3.93-5.22); RDW 13.8 % (11.7-14.6); RDW-SD 47.3 fL; WBC 8.08 10^3/uL (4.4-10.8)
[2023-03-20 09:52] LABS: ALT 19 U/L (14-59); AST 13 U/L (15-37); Albumin 4.2 g/dL (3.4-5.0); Alkaline Phosphatase 60 U/L (46-116); Anion Gap 13.1 mmol/L (3-11); BUN 12 mg/dL (7-18); Bilirubin, Total 0.3 mg/dL (0.2-1.0); C-Reactive Protein 15.43 mg/dL (0.0-0.3); CO2 24.9 mmol/L (21.0-32.0); Calcium 9.9 mg/dL (8.5-10.1); Chloride 102 mmol/L (98-107); Estimated GFR 67.78 (mL/min/1.73m2); Glucose 105 mg/dL (74-106); Potassium 3.5 mmol/L (3.5-5.1); Sodium 140 mmol/L (136-145); Total Protein 9.1 g/dL (6.4-8.2)
== END 2023-03-20 13:56 | disposition home or self-care (01) ==
PROVIDERS: PCP Family Medicine; Visit Provider Surgery
DX: K57.90 Diverticulosis of intestine, part unspecified, without perforation or abscess without bleeding (principal); R10.32 Left lower quadrant pain
CPT/HCPCS: 36415; 80053; 85025; 86140

== ENCOUNTER 2023-04-03 20:50 | Outpatient (CLI) | payer MEDICAID, SELFPAY ==
[2023-04-03 16:06] LABS: Abs Immature Grans 0.06 10^3/uL (0.0-0.06); Absolute Basophil Count 0.08 10^3/uL (0.0-0.2); Absolute Eosinophil Count 0.04 10^3/uL (0.0-0.7); Absolute Monocyte Count 0.79 10^3/uL (0.1-0.8); Absolute Neutrophil Count 6.43 10^3/uL (1.2-6.7); Basophils % 0.8; Eosinophils % 0.4; HCT 39.8 % (36.0-46.0); HGB 13.7 g/dL (11.2-15.7); Immature Grans % 0.6; Lymphocytes % 22.1; MCH 30.8 pg (27.0-33.0); MCHC 34.4 % (32.0-36.0); MCV 89 fL (80-95); MPV 10.8 fL (8.0-11.0); Monocytes % 8.3; Neutrophils % 67.8; Platelet Count 390 10^3/uL (130-400); RBC 4.45 10^6/uL (3.93-5.22); RDW-SD 42.8 fL
[2023-04-03 16:08] LABS: Bilirubin Negative (Negative); Blood Negative (Negative); Clarity Clear (Clear); Glucose Negative (Negative); Ketones Negative (Negative); Leukocyte Esterase Trace (Negative); Nitrite Negative (Negative); Specific Gravity <= 1.005 (1.005-1.025); Urobilinogen 0.2 mg/dL (Up to 0.2)
[2023-04-03 16:22] LABS: Bacteria Rare HPF (Negative); C & S Indicated? Yes; Casts Negative LPF (Negative); Crystals Negative HPF (Negative); Epithelial Cells Rare HPF (Negative); Mucus Negative (Negative); RBC Negative HPF (0-2)
[2023-04-03 16:30] LABS: ALT 30 U/L (14-59); AST 20 U/L (15-37); Albumin 4.3 g/dL (3.4-5.0); Alkaline Phosphatase 57 U/L (46-116); Anion Gap 12.9 mmol/L (3-11); BUN 15 mg/dL (7-18); Bilirubin, Total 0.2 mg/dL (0.2-1.0); CO2 26.1 mmol/L (21.0-32.0); CREATININE 1.2 mg/dL (0.55-1.02); Calcium 10.4 mg/dL (8.5-10.1); Chloride 100 mmol/L (98-107); Estimated GFR 54.46 (mL/min/1.73m2); Glucose 103 mg/dL (74-106); Sodium 139 mmol/L (136-145); Total Protein 8.9 g/dL (6.4-8.2)
== END 2023-04-03 20:51 | disposition home or self-care (01) ==
LOC: LBO 20:51
PROVIDERS: PCP Family Medicine; Visit Provider Surgery
DX: K57.32 Diverticulitis of large intestine without perforation or abscess without bleeding (principal); R10.9 Unspecified abdominal pain
CPT/HCPCS: 36415; 80053; 81003; 81015; 85025; 86140; 87086

== ENCOUNTER 2023-04-04 15:26 | Outpatient (REF) | payer MEDICAID, SELFPAY ==
[2023-04-07 16:03] LABS: Calprotectin <50.0 mcg/g
== END 2023-04-04 15:27 | disposition home or self-care (01) ==
LOC: LBN 15:26
PROVIDERS: PCP Family Medicine; Visit Provider Surgery
DX: K57.32 Diverticulitis of large intestine without perforation or abscess without bleeding (principal)
CPT/HCPCS: 83993

== ENCOUNTER 2023-04-15 15:48 | Emergency (ER) | payer MEDICAID, SELFPAY ==
[2023-04-15] VITALS (22 sets, daily range): BP systolic 127–162; BP diastolic 84–96; PULSE 66–91; RESP 14–23; TEMP 36.3–36.6; O2SAT 92–100
--- NOTE | 2023-04-15 16:22 | ED.GENADUL_ITS ---
Discharge Plan Disposition Patient Disposition: Home Condition: Stable Discharge Details Clinical Impression: Diverticulitis Primary Care Provider: Charanjit Arias ED Provider: Constantin Pederson Home Meds and New Rx's Prescriptions: New magnesium 250 mg tablet 250 mg PO DAILY Qty: 30 0RF Continued omeprazole magnesium [Prilosec OTC] 20 mg tablet,delayed release (DR/EC) 20 mg PO DAILY Qty: 90 3RF mirtazapine [Remeron] 15 mg tablet 15 mg PO DAILY Qty: 90 3RF hydrochlorothiazide 12.5 mg tablet 12.5 mg PO DAILY Qty: 90 3RF metoprolol succinate 50 mg tablet extended release 24 hr 50 mg PO DAILY Qty: 90 3RF atorvastatin 40 mg tablet 40 mg PO DAILY Qty: 90 3RF fenofibrate nanocrystallized [Tricor] 145 mg tablet 145 mg PO DAILY Qty: 90 3RF Prempro 0.3-1.5 mg tablet 1 tab PO DAILY Qty: 84 2RF amoxicillin-pot clavulanate 875-125 mg tablet 1 tab PO DAILY Patient Comments: TAKE ONE TABLET BY MOUTH EVERY 8 HOURS Discharge Instructions Instructions: Magnesium (By mouth), Diverticulitis (ED), Potassium Content of Foods List (ED), Diverticulitis Diet (ED) Additional Instructions: You were seen in the emergency department for your continued abdominal pain with known diverticulitis. You have had a significant exposure to antibiotics and may need to repeat collect a stool sample to test for C. difficile. I discussed her case with both the radiologist and general surgeon, the general surgery office will follow-up with you on Monday or Monday, if you have not heard from them by Monday afternoon please call them. Please continue your laxative regimen, you may take simethicone for gas pain relief. Please use therapeutic dosing of Tylenol (acetamenophen) & Advil (ibuprofen) in an alternating fashion as follows: Take 1000mg of Tylenol every 6 hours without missing doses- that is 4 times per day. Carpenter in between the Tylenol dosings, take 400-600mg of Advil also on a 6 hour schedule, that is also 4 times per day. The daily maximum dosing of Tylenol is 4000mg, and the daily maximum dosing of Advil is 2400mg. This is safe to do for weeks. Please note that some common cold medications & prescription pain medications may contain acetamenophen and you need to read OTC drug labels and factor that in to maximum daily dosings. If you are experiencing significant worsening of your abdominal pain especially with fever intractable nausea vomiting, weakness or shakiness please return to the ED for recheck immediately. Referrals: [facility] [Provider Group] Charanjit Arias MD [Primary Care Provider] - Medical Decision Making This dictation utilizes [id number] dictation software and may contain unedited grammatical errors. 53 y/o F presents to ED today with a chief complaint of diffuse lower abdominal pain focal to the left and suprapubic lower abdomen. Patient has had multiple flares of diverticulitis in the past and recently completed 2 courses of outpatient antibiotics for empiric diverticulitis with an outpatient CT scan scheduled for Monday. Patient reports that over the past few days her constipation has become more pronounced with very poor stool output and no flatus passed today with increasing abdominal pain, endorses normal p.o. intake throughout her illness, denies fever or intractable nausea/vomiting. Patients' medical history: Diverticulitis, chronic constipation, hypertension, history of C. difficile, history of right ovarian mass. Family and social history: tobacco use. Pertinent exam findings / vital signs include diffuse lower abdominal tenderness without rebound tenderness or rigidity, benign cardiopulmonary examination, neuro intact, no CVA tenderness bilaterally. Differential / pathologies of concern include diverticulitis, microperforation, abscess, bowel obstruction, C. difficile. Diagnostic studies of: -CBC, CMP, UA, Lipase, Lactate, CT ABD/Pelvis w Contrast. Interventions of: -1L NS IVF, 1g IV APAP, 15mg IV Toradol. ED Course: 53-year-old female with a complicated diverticulitis history presents with increasing constipation after 20 days of antibiotic use for known diverticulitis. She has a history of C. difficile. Her labs show a mild leukocytosis with a white count of 13, hypomagnesemia and hypokalemia which were repleted by IV and started on p.o. supplementation. Her lipase and lactate are unremarkable, her CT scan does show dilated loops of large bowel with some fluid levels, there is no evidence of microperforation or abscess. I did discuss her radiology findings with the [facility] radiologist as well as with our surgeon Dr. Martinez who is happy to see the patient in follow-up on Monday or Monday at the latest. He will have his office staff contact them. They have had prior talks with providers on possible partial colectomy due to her complicated diverticulitis history. I discussed these options as well as a possible ops admit for the patient, is her preference to return home this evening, I counseled her on continuing her laxatives and bowel regimen and using adequate dosing of Tylenol and ibuprofen in alternating fashion. Discussed possible need for re-check of stool sample due to c.diff history. Findings not consistent with diverticulitis with microperforations or abscess, large bowel obstruction or toxic megacolon, sepsis, small bowel obstruction, emergent abdominal pathology. Disposition of Diverticulitis. Patient verbalized understanding of the plan and return to ED criteria and engaged in shared decision making. Medical Records Medical records reviewed: Yes I reviewed the patient's medical records. Imaging Data Radiologic Study: Imaging: CT Scan Radiologist's impression: vRad read shows normal small bowel, multiple diverticula with some fat stranding and mucosal thickening of the sigmoid colon, no evidence of perforation or abscess, no free fluid, chronic finding of 4.7 cm left hepatic lobe cyst Lab Data Lab results reviewed: Yes I reviewed the patient's lab results. Labs: Laboratory Tests Range/Units 04/15/23 04/15/23 16:12 17:19 WBC (4.4-10.8) 10^3/uL 13.29 H RBC (3.93-5.22) 10^6/uL 4.27 Hgb (11.2-15.7) g/dL 13.2 Hct (36.0-46.0) % 38.5 MCV (80-95) fL 90 MCH (27.0-33.0) pg 30.9 MCHC (32.0-36.0) % 34.3 RDW (11.7-14.6) % 13.2 Plt Count (130-400) 10^3/uL 344 MPV (8.0-11.0) fL 10.6 Immature Gran % 0.3 Neutrophils % 78.1 Lymphocytes % 14.1 Monocytes % 6.7 Eosinophils % 0.4 Basophils % 0.4 Nucleated RBC % (0.0-0.3) % 0.0 Absolute Neutrophils (1.2-6.7) 10^3/uL 10.38 H Absolute Lymphocytes (1.2-3.4) 10^3/uL 1.87 Absolute Monocytes (0.1-0.8) 10^3/uL 0.89 H Absolute Eosinophils (0.0-0.7) 10^3/uL 0.05 Absolute Basophils (0.0-0.2) 10^3/uL 0.05 ESR (0-30) mm/hr 26 VBG Lactate (0.6-1.4) mmol/L 0.9 Sodium (136-145) mmol/L 138 Potassium (3.5-5.1) mmol/L 3.1 L Chloride (98-107) mmol/L 102 Carbon Dioxide (21.0-32.0) mmol/L 26.3 Anion Gap (3-11) mmol/L 9.7 BUN (7-18) mg/dL 12 Creatinine (0.55-1.02) mg/dL 0.9 Est GFR (CKD-EPI 2020) (mL/min/1.73m2) 76.44 Glucose (74-106) mg/dL 98 Calcium (8.5-10.1) mg/dL 10.9 H Magnesium (1.8-2.4) mg/dL 1.2 L Total Bilirubin (0.2-1.0) mg/dL 0.4 AST (15-37) U/L 14 L ALT (14-59) U/L 26 Alkaline Phosphatase (46-116) U/L 58 C-Reactive Protein (0.0-0.3) mg/dL 4.65 H Total Protein (6.4-8.2) g/dL 8.7 H Albumin (3.4-5.0) g/dL 4.1 Lipase (16-77) U/L 36 Urine Color (Yellow) Yellow Urine Clarity (Clear) Clear Urine pH (5-8) 6.0 Ur Specific [place] (1.005-1.025) 1.010 Urine Protein (Negative) mg/dL Negative Urine Ketones (Negative) mg/dL Negative Urine Blood (Negative) Negative Urine Nitrite (Negative) Negative Urine Bilirubin (Negative) Negative Urine Urobilinogen (Up to 0.2) mg/dL 0.2 Ur Leukocyte Esterase (Negative) Trace H Urine RBC (0-2) HPF Negative Urine WBC (0-5) HPF 0-2 Ur Epithelial Cells (Negative) HPF Rare Urine Crystals (Negative) HPF Negative Urine Bacteria (Negative) HPF Negative Urine Casts (Negative) LPF Negative Urine Mucus (Negative) Trace Ur Culture Indicated? No Urine Glucose (Negative) mg/dL Negative HPI General Date/Time Provider Initiated Documentation: 04/15/23 16:16 . HPI Narrative: 53 year-old female presents to ED today by POV/ambulating with a chief complaint of lower abdominal pain diffusely, has just completed about 20 days of antibiotics for empiric diverticulitis as she has had this multiple times in the past. She is scheduled for CT scan here Monday, endorses that for the past 4 days she has had very little stool output and today has not passed any gas or stool whatsoever, performed an enema today with no relief. Quality described as diffuse lower abdominal pain and cramping similar to prior episodes of diverticulitis, no radiation to fever, nausea/vomiting, shortness of breath, weakness, dysuria, urinary retention. Severity is described as 8-9/10. Palliating factors include enemas, antibiotics without relief. Provoking factors include nothing specific. Events leading up to the incident/Associated Symptoms: patient endorses normal PO intake despite the poor stool output. Patient not anticoagulated. Related Data Home Medications Medication Instructions Recorded Confirmed omeprazole magnesium 20 mg 20 mg PO DAILY #90 tabs 08/03/22 04/15/23 tablet,delayed release (Prilosec OTC) atorvastatin 40 mg tablet 40 mg PO DAILY #90 tabs 08/22/22 04/15/23 fenofibrate nanocrystallized 145 145 mg PO DAILY #90 tabs 08/22/22 04/15/23 mg tablet (Tricor) hydrochlorothiazide 12.5 mg tablet 12.5 mg PO DAILY #90 tabs 12/15/22 04/15/23 metoprolol succinate 50 mg 50 mg PO DAILY #90 tabs 12/15/22 04/15/23 tablet,extended release 24 hr mirtazapine 15 mg tablet (Remeron) 15 mg PO DAILY #90 tabs 03/08/23 04/15/23 conj estrogen-medroxyprogesterone 1 tab PO DAILY #84 tabs 04/03/23 04/15/23 0.3 mg-1.5 mg tablet (Prempro) amoxicillin 875 mg-potassium 1 tab PO DAILY 04/15/23 04/15/23 clavulanate 125 mg tablet magnesium 250 mg tablet 250 mg PO DAILY hypomagnesemia #30 04/15/23 tabs Previous Rx's Medication Instructions Recorded omeprazole magnesium 20 mg 20 mg PO DAILY #90 tabs 08/03/22 tablet,delayed release (Prilosec OTC) atorvastatin 40 mg tablet 40 mg PO DAILY #90 tabs 08/22/22 fenofibrate nanocrystallized 145 145 mg PO DAILY #90 tabs 08/22/22 mg tablet (Tricor) hydrochlorothiazide 12.5 mg tablet 12.5 mg PO DAILY #90 tabs 12/15/22 metoprolol succinate 50 mg 50 mg PO DAILY #90 tabs 12/15/22 tablet,extended release 24 hr mirtazapine 15 mg tablet (Remeron) 15 mg PO DAILY #90 tabs 03/08/23 conj estrogen-medroxyprogesterone 1 tab PO DAILY #84 tabs 04/03/23 0.3 mg-1.5 mg tablet (Prempro) magnesium 250 mg tablet 250 mg PO DAILY hypomagnesemia #30 04/15/23 tabs Allergies Allergy/AdvReac Type Severity Reaction Status Date / Time losartan Allergy Intermediate angioedema Verified 04/15/23 17:26 trazodone AdvReac Intermediate Headache Verified 04/15/23 17:26 codeine [Codeine] AdvReac heart Verified 04/15/23 17:26 racing lidocaine AdvReac heart Verified 04/15/23 17:26 racing General Stated Complaint: Abd Prob GLORIA: 3 Review of Systems All systems reviewed & are unremarkable except as noted in HPI and below PFSH All Active Problems (Updated 04/15/23 @ 19:14 by EMILEE James) Diverticulitis (Chronic) Abdominal pain (Acute) Diverticulitis large intestine (Acute) Hyperplastic colon polyp (Acute ~01/17/23) Diverticulosis (Acute) Chronic constipation (Acute) Adjustment disorder with anxious mood (Acute) Essential hypertension (Acute) Hyperlipidemia LDL goal <130 (Acute) C. difficile colitis (Acute) Left lower quadrant pain (Acute) Depression (Chronic) Dizziness (Acute) Hot flashes (Acute) Tobacco abuse (Acute) Leg pain, bilateral (Acute) Upper respiratory infection (Acute) Ovarian mass, right (Acute) we will get u/s, as suggested tylenol as needed for pain Medical History Acute diverticulitis Diverticulitis Tonsillar hypertrophy Peritonsillar abscess Surgical History History of colonoscopy (~12/2022) Ligation of fallopian tube HYSTERECTOMY Supracervical Family History Mother Hyperlipidemia Father Essential hypertension Sister No problems noted. Brother Hyperlipidemia Grandfather No problems noted. Grandfather Personal history of malignant neoplasm COLON Grandmother No problems noted. 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 Pets and animals: Yes Pets and animals: dog(s) Sexually active: Yes Do you think of yourself as: straight/heterosexual Current gender identity: female What is your relationship status?: How often do you talk on the phone with friends or family?: twice per week How often do you get together with friends or relatives?: twice per week How often do you attend protestant or jew services?: decline to answer Do you belong to any clubs or organized social groups?: no Panel score (0-1 are the most socially isolated patients): 2 What type of physical activity do you participate in: walking Duration: 15-30 minutes/day Frequency: 1-2 times per week Rekha/Latter Day: None Special rekha needs: No Seatbelt use: always Helmet use: Yes Helmet use: always Drive intox or ride w/intox class b driver: No Do you feel safe at home: Yes Do you feel safe in your relationship?: Yes Exam Narrative Exam Narrative: GENERAL APPEARANCE: Well-nourished, non-toxic, awake and alert, atraumatic, no acute distress. SKIN: Warm, pink, dry, intact, without rashes/lesions/ulcerations. HEAD: Normocephalic, atraumatic, normal hair distribution for gender/age. EYES: Pupils PERRLA, EOMs intact without nystagmus, normal conjunctiva, no exudates on lids/lashes. ENT: Nares patent, no circumoral cyanosis, no facial swelling NECK: Supple, trachea midline, painless cervical ROM. LUNGS/CHEST: Lungs CTA bilaterally - no rhonchi/rales/wheezes diffusely, non- labored respirations, normal A/P diameter, symmetrical expansion, no chest wall deformity HEART (CV/PV): Regular rate and rhythm without murmur, no peripheral edema, no JVD. ABDOMEN: Soft, non-distended, no guarding, suprapubic and left lower quadrant tenderness with some right-sided tenderness around the obliques, no epigastric tenderness, no Rovsing's, no McBurney's point tenderness, no CVA tenderness bilaterally to percussion. MSK: Normal ROM, no swelling/deformity to bilateral UEs or LEs, moving all extremities without weakness, no cyanosis, spine midline without tenderness, normal curvature. NEURO: Mental Status AAOx4 - alert to person, place, time, events No facial droop, no forehead involvement. Motor: No focal weakness - strength 5/5 in bilateral UEs and LEs, proximal and distal, symmetric. Sensory: sensation intact to light touch globally. Gait normal: patient ambulated without ataxia into ED room. PSYCH: euthymic, cooperative, pleasant, appropriate speech Course Vital Signs Vital signs: Vital Signs Temperature 36.3 C L 04/15/23 16:04 Pulse 91 H 04/15/23 16:04 Respiratory Rate 18 04/15/23 16:04 Blood Pressure 149/90 H 04/15/23 16:04 Pulse Oximetry 100 04/15/23 16:04 Temperature 36.3 C L 04/15/23 16:04 Temperature Source Oral 04/15/23 16:04 Pulse 91 H 04/15/23 16:04 Respiratory Rate 18 04/15/23 16:04 Blood Pressure 149/90 H 04/15/23 16:04 Blood Pressure Position Sitting 04/15/23 16:04 Pulse Oximetry 100 04/15/23 16:04 Oxygen Delivery Method Room Air 04/15/23 16:04 Oxygen Flow Rate 0 04/15/23 16:04
--- NOTE | 2023-04-15 16:27 | DI.CT_ITS ---
Exam(s) CT ABDOMEN PELVIS W EXAM: CT ABDOMEN PELVIS W CLINICAL HISTORY: LLQ/suprapubic pain, not passing gas TECHNIQUE: Imaging Protocol: Axial computed tomography images with coronal and sagittal reformatted images were created and reviewed CONTRAST MATERIAL: Intravenous: Omnipaque 350 Contrast volume:100 mL Oral: No CT CT ABDOMEN PELVIS W from 11/14/2022 FINDINGS: ABDOMEN: Lung Bases: Normal where visualized. Liver: Normal density. Stable hepatic cyst. Portal, Superior Mesenteric, and Splenic Veins: Unremarkable. Gallbladder and Biliary Tract: No radiodense calculus or dilation. Pancreas: Normal density, no abnormal calcifications or inflammatory process. Spleen: Normal. Adrenals: No masses seen. Kidneys: Normal size, contour and axis. No radiodense stones or obstructive uropathy. There is a stab le left renal cyst. No follow-up is recommended. Abdominal Aorta: Abdominal portion non-dilated. Atherosclerosis. Bowel: There is diverticulosis of the colon with bowel wall thickening and pericolonic inflammation s een in the sigmoid colon suggesting acute diverticulitis. Fluid-filled loops of small and large ajay l are present. There is also bowel mucosal thickening just distal to the splenic flexure in the desc ending colon. There is no evidence of bowel obstruction. Appendix is unremarkable. Peritoneal Cavity: No ascites, collection or mesenteric inflammatory response. No free air. Lymph Nodes: Within normal limits. Bones: Within normal limits for the patient's age. Soft Tissues: Unremarkable. PELVIS: Bladder: Symmetric distention, no gross wall thickening. Reproductive Organs: Unremarkable as visualized. Lymph Nodes: Within normal limits. Bones: Within normal limits for the patient's age. IMPRESSION: 1. Diverticulosis of the colon. 2. Bowel wall thickening and pericolonic phlegm a yamilet changes seen in loops of descending colon and sigmoid colon. This can be secondary to acute diverticulitis however inflammatory bowel disease shou ld also be considered in this patient. 3. No abscess or free air. RADIATION DOSE DELIVERED: Total DLP DATA REPOSITORY: All CT scans at this facility are submitted to the National Radiology Data Registry (NRDR) Dose Index Registry (DIR) with the [employer] (ACR). RADIATION OPTIMIZATION: All CT scans at this facility use at least one of these dose optimization te chniques: automated exposure control; mA and/or kV adjustment per patient size (includes targeted exa ms where dose is matched to clinical indication); or iterative reconstruction.
[2023-04-15] MEDS: Ketorolac 15 MG/ML VIAL IVP (17:04)
[2023-04-15] MEDS: Normal Saline 1,000 ML 1000 ML IV (17:04)
[2023-04-15] MEDS: ACETAMINOPHEN 1,000 MG/100 ML BTL 400 MG IVPB (17:05)
[2023-04-15 17:10] LABS: Bilirubin Negative (Negative); Blood Negative (Negative); Clarity Clear (Clear); Glucose Negative (Negative); Ketones Negative (Negative); Leukocyte Esterase Trace (Negative); Nitrite Negative (Negative); Urobilinogen 0.2 mg/dL (Up to 0.2)
[2023-04-15 17:18] LABS: Bacteria Negative HPF (Negative); C & S Indicated? No; Casts Negative LPF (Negative); Crystals Negative HPF (Negative); Epithelial Cells Rare HPF (Negative); Mucus Trace (Negative); RBC Negative HPF (0-2); WBC 0-2 HPF (0-5)
[2023-04-15 17:23] LABS: Lactate 0.9 mmol/L (0.6-1.4)
[2023-04-15 17:25] LABS: Abs Immature Grans 0.04 10^3/uL (0.0-0.06); Absolute Basophil Count 0.05 10^3/uL (0.0-0.2); Absolute Eosinophil Count 0.05 10^3/uL (0.0-0.7); Absolute Lymphocyte Count 1.87 10^3/uL (1.2-3.4); Absolute Monocyte Count 0.89 10^3/uL (0.1-0.8); Absolute Neutrophil Count 10.38 10^3/uL (1.2-6.7); Basophils % 0.4; Eosinophils % 0.4; HCT 38.5 % (36.0-46.0); HGB 13.2 g/dL (11.2-15.7); Immature Grans % 0.3; Lymphocytes % 14.1; MCH 30.9 pg (27.0-33.0); MCHC 34.3 % (32.0-36.0); MCV 90 fL (80-95); MPV 10.6 fL (8.0-11.0); Monocytes % 6.7; Neutrophils % 78.1; Platelet Count 344 10^3/uL (130-400); RBC 4.27 10^6/uL (3.93-5.22); RDW 13.2 % (11.7-14.6); RDW-SD 43.6 fL; WBC 13.29 10^3/uL (4.4-10.8)
[2023-04-15 17:36] LABS: ESR 26 mm/hr (0-30)
[2023-04-15 17:43] LABS: ALT 26 U/L (14-59); AST 14 U/L (15-37); Albumin 4.1 g/dL (3.4-5.0); Alkaline Phosphatase 58 U/L (46-116); Anion Gap 9.7 mmol/L (3-11); BUN 12 mg/dL (7-18); Bilirubin, Total 0.4 mg/dL (0.2-1.0); C-Reactive Protein 4.65 mg/dL (0.0-0.3); CO2 26.3 mmol/L (21.0-32.0); CREATININE 0.9 mg/dL (0.55-1.02); Calcium 10.9 mg/dL (8.5-10.1); Chloride 102 mmol/L (98-107); Estimated GFR 76.44 (mL/min/1.73m2); Glucose 98 mg/dL (74-106); Lipase 36 U/L (16-77); Magnesium 1.2 mg/dL (1.8-2.4); Potassium 3.1 mmol/L (3.5-5.1); Sodium 138 mmol/L (136-145); Total Protein 8.7 g/dL (6.4-8.2)
[2023-04-15] MEDS: Normal Saline - Diluent 50 ML VIAL IJ (17:48)
[2023-04-15] MEDS: MAGNESIUM SULFATE 2 GM/50 ML BAG IVPB (18:24)
--- NOTE | 2023-04-15 18:32 | DI.VRAD_ITS ---
Addendum created by Drew Bass MD on 04/15/2023 6:45:11 PM EST: Addendum: There is no significant dilatation of the ascending and transverse colon. The case was discussed with EMILEE choi at 4:44 p.m. MST on 04/15/2023 Initial report created on 04/15/2023 6:32:20 PM EST: PROCEDURE INFORMATION: Exam: CT Abdomen And Pelvis With Contrast Exam date and time: 04/15/2023 5:47 PM Age: 53 years old Clinical indication: Other: Llq/suprapubic pain, not passing gas TECHNIQUE: Imaging protocol: Computed tomography of the abdomen and pelvis with contrast. Contrast material: 350; Contrast volume: 100 ml; Contrast route: INTRAVENOUS (IV); COMPARISON: CT ABDOMEN PELVIS W 11/14/2022 10:26 AM FINDINGS: Lungs: The visualized lung bases are clear Liver: 4.7 cm left hepatic lobe cyst is unchanged. Liver is otherwise unremarkable. Gallbladder and bile ducts: Normal. No calcified stones. No ductal dilation. Pancreas: Normal. No ductal dilation. Spleen: Normal. No splenomegaly. Adrenal glands: Normal. No mass. Kidneys and ureters: Normal. No hydronephrosis. Stomach and bowel: The small bowel is normal in caliber. There are multiple diverticula in the sigmoid colon. Mucosal thickening within the sigmoid colon with adjacent fat stranding. There is mucosal thickening beginning just distal to the splenic flexure and extending to the distal 3rd of the descending colon. There is normal: Between the areas of mucosal thickening in the descending colon and sigmoid colon. The transverse and ascending colon are fluid-filled but have no wall or mucosal thickening. Appendix: No evidence of appendicitis. Intraperitoneal space: No free fluid or free air in the abdomen or pelvis. Vasculature: Unremarkable. No abdominal aortic aneurysm. Lymph nodes: Unremarkable. No enlarged lymph nodes. Urinary bladder: Unremarkable as visualized. Reproductive: Unremarkable as visualized. Bones/joints: Unremarkable. No acute fracture. Soft tissues: Unremarkable. IMPRESSION: The findings in the sigmoid colon can be due to diverticulitis but there is also similar findings in the descending colon and inflammatory etiologies such as inflammatory bowel disease should also be considered. Dictated and Authenticated by: Drew Bass MD. Ordering:WENDY Killian MD
[2023-04-15] MEDS: POTASSIUM CHLORIDE 10 MEQ/100 ML BAG 100 MEQ IVPB ×2 (19:24→20:31)
[2023-04-15] MEDS: Simethicone/Sod Bicarb/Cit Ac, 4 gram PACKET 1 PACKET PO (21:23)
--- NOTE | 2023-04-17 11:14 | PGE_ITS ---
Date of Service Date of service: 04/17/23 Time of Service: 11:15 Assessment and Plan Assessment and plan (1) Diverticulitis: Status: Chronic Assessment and plan: Patient saw Dr. Rosenberg last weekend. We kept her on suppression Augmentin. Patient was in the ER over the weekend. CT reviewed. It does show again recurrent diverticulitis. She has been on suppression antibiotics. She does have a history of C. difficile. She still continues to smoke. At this point our options are admission for IV antibiotics versus adding in a second antibiotic and then pursuing surgery. We may need to do some type of diversion as she cannot seem to completely rid herself of the infection and has a chronic underlying infection that does not resolve plus she is a smoker. I did call the patient and leave a message At 9 AM. She has not returned the phone call. I will put a prescription in for Levaquin in addition to her Augmentin. (2) Diverticulosis: Status: Acute (3) Chronic constipation: Status: Acute (4) Essential hypertension: Status: Acute (5) Tobacco abuse: Status: Acute (6) Acute diverticulitis: Objective Last Vital Signs Temp 36.6 C 04/15/23 20:21 Pulse 66 04/15/23 21:30 Resp 22 04/15/23 21:31 BP 162/96 H 04/15/23 21:30 Pulse Ox 97 04/15/23 20:21 PAWSS Have you Been Recently Intoxicated or Drunk Within the Last 30 days?: No Have you Ever Experienced Previous Episodes of Alcohol Withdrawal?: No Have you ever Experienced Withdrawal Seizures?: No Have you ever Experienced Delirium Tremens(DT)s?: No Have you ever undergone Alcohol Rehabilitation Treatment (i.e, inpt ot outpatient treatment programs)?: No Have you ever Experienced Blackouts?: No Have you ever Combined Alcohol with other Downers within the last 90 days?: No Have you ever Combined Alcohol with any other Substance of Abuse during the last 90 days?: No Positive Blood Alcohol level on Presentation? [PCS.BAL]: No Evidence of Increased Autonomic Activity (i.e. HR>120, tremor, sweating, agitation, nausea)?: No Result: 0 Time Spent with Patient Time Spent with Patient: <25 minutes Time was spent: referring, communicating with other health youth care worker, indepentently interpreting results and care coordination
== END 2023-04-15 21:34 | disposition home or self-care (01) ==
PROVIDERS: Emergency Provider Physician Assistant; PCP Family Medicine
DX: K59.09 Other constipation; K57.30 Diverticulosis of large intestine without perforation or abscess without bleeding; D72.829 Elevated white blood cell count, unspecified; E83.42 Hypomagnesemia; E87.6 Hypokalemia
CPT/HCPCS: 36415; 80053; 83690; 85652; 96361; 96365; 96366; 96368; 96375; 99285; 74177; 81003; 81015; 83605; 83735; 85025; 86140; 99284; J0131; J1885; J3480

== ENCOUNTER 2023-05-01 09:52 | Inpatient (IN) | payer MEDICAID, SELFPAY ==
--- NOTE | 2023-05-01 09:59 | W.PM.HP.N ---
Date of service: 05/01/23 Time of Service: 09:59 Assessment and Plan Assessment and plan (1) Diverticulitis: Status: Chronic Assessment and plan: Omaira is a 53-year-old female who who has been having bouts of diverticulitis frequently over the last 5 months. More recently it has become a chronic issue. She has been on antibiotics now continuously for many weeks without any improvement in her symptoms. Over the last 3 days her symptoms have actually worsened. She is having more trouble going to the bathroom. She is having constant pain. No fevers at this time. Her last CT scan showed inflammation and a phlegmon but no abscess. She was scheduled to undergo surgery on May 16. With her symptoms not improving and the fact that she is already had C. difficile once I think it would be prudent to admit the patient started on IV antibiotics. I will repeat her CT scan to make sure she does not have a large abscess. She will most likely need to undergo surgery this week. We reviewed the surgery which would most likely include either a diverting colostomy or a loop colostomy. The colostomy would not be permanent. Most likely would would reverse it in 3 to 4 months. Will direct admit the patient. Antibiotics: Zosyn Diet: NPO except sips of clears Ambulation: TID IV FLuids: LR at 125 cc/hr DVT prophilaxis- SCD's, Lovenox (will hold once I know when she will undergo surgery) GI prophilaxis- Protonix IV Further recommendations once I have the results of her CT scan which was ordered stat History of Present Illness Narrative: Omaira is a pleasant 53-year-old female who unfortunately has been dealing with diverticulitis attacks now for over the last few months. She is now at the point where it is a chronic diverticulitis issue. Her last CT scan showed a phlegmon. She was scheduled for surgery on May 16 but unfortunately even on antibiotics she is having flares. She now has increased abdominal pain again. She feels bloated. She is not passing as much stool. No fevers or chills that she is aware of. No nausea or vomiting at this time. Her past medical history is otherwise significant for anxiety, depression, hypertension. She also still is a smoker. Review of Systems Constitutional Constitutional: Denies fatigue, Denies fever(s), Denies headache(s), Reports poor appetite and Denies weight loss Eyes Eyes: Denies change in vision ENT Ears, Nose, Mouth, and Throat: Denies dysphagia and Denies headache(s) Cardiovascular Cardiovascular: Denies chest pain, Denies chest pain at rest, Denies irregular heart rhythm, Denies palpitations, Denies dyspnea and Denies dyspnea on exertion Respiratory Respiratory: Denies cough, Denies dyspnea and Denies dyspnea on exertion Gastrointestinal Gastrointestinal: Reports as per HPI, Denies dysphagia, Denies dyspepsia and Denies heartburn Genitourinary Genitourinary: Denies difficulty voiding and Denies dysuria Musculoskeletal Musculoskeletal: Reports system reviewed and no additional complaints, except as documented Integumentary/Breasts Skin/Breast: Reports system reviewed and no additional complaints, except as documented Neurologic Neurologic: Reports system reviewed and no additional complaints, except as documented and Denies headache(s) Psychiatric Psychiatric: Reports system reviewed and no additional complaints, except as documented Endocrine Endocrine: Reports system reviewed and no additional complaints, except as documented, Denies fatigue and Denies palpitations Hematologic/Lymphatic Hematologic/Lymphatic: Denies easy bleeding, Denies easy bruising and Denies lymphadenopathy PFSH All Active Problems Smoker (Acute) Diverticulitis (Chronic) Abdominal pain (Acute) Diverticulitis large intestine (Acute) Hyperplastic colon polyp (Acute ~01/17/23) Diverticulosis (Acute) Chronic constipation (Acute) Adjustment disorder with anxious mood (Acute) Essential hypertension (Acute) Hyperlipidemia LDL goal <130 (Acute) C. difficile colitis (Acute) Left lower quadrant pain (Acute) Depression (Chronic) Dizziness (Acute) Hot flashes (Acute) Tobacco abuse (Acute) Leg pain, bilateral (Acute) Upper respiratory infection (Acute) Ovarian mass, right (Acute) we will get u/s, as suggested tylenol as needed for pain Medical History Acute diverticulitis Diverticulitis Tonsillar hypertrophy Peritonsillar abscess Surgical History S/P laparoscopic assisted vaginal hysterectomy (LAVH) super-cervical S/P tonsillectomy History of colonoscopy (~12/2022) Ligation of fallopian tube HYSTERECTOMY Supracervical Family History Mother Hyperlipidemia Father Essential hypertension Sister No problems noted. Brother Hyperlipidemia Grandfather No problems noted. Grandfather Personal history of malignant neoplasm COLON Grandmother No problems noted. 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 Pets and animals: Yes Pets and animals: dog(s) Sexually active: Yes Do you think of yourself as: straight/heterosexual Current gender identity: female What is your relationship status?: How often do you talk on the phone with friends or family?: twice per week How often do you get together with friends or relatives?: twice per week How often do you attend quaker or sikh services?: decline to answer Do you belong to any clubs or organized social groups?: no Panel score (0-1 are the most socially isolated patients): 2 What type of physical activity do you participate in: walking Duration: 15-30 minutes/day Frequency: 1-2 times per week Rekha/Gnosticism: None Special rekha needs: No Seatbelt use: always Helmet use: Yes Helmet use: always Drive intox or ride w/intox funeral car driver: No Do you feel safe at home: Yes Do you feel safe in your relationship?: Yes Meds Allergies and Home Medications Allergies Allergy/AdvReac Type Severity Reaction Status Date / Time losartan Allergy Intermediate angioedema Verified 04/20/23 11:57 trazodone AdvReac Intermediate Headache Verified 04/20/23 11:57 codeine [Codeine] AdvReac heart Verified 04/20/23 11:57 racing lidocaine AdvReac heart Verified 04/20/23 11:57 racing Home Medications Medication Instructions Recorded Confirmed Type omeprazole magnesium 20 mg 20 mg PO DAILY #90 tabs 08/03/22 05/01/23 Rx tablet,delayed release (Prilosec OTC) atorvastatin 40 mg tablet 40 mg PO DAILY #90 tabs 08/22/22 05/01/23 Rx fenofibrate nanocrystallized 145 145 mg PO DAILY #90 tabs 08/22/22 05/01/23 Rx mg tablet (Tricor) hydrochlorothiazide 12.5 mg tablet 12.5 mg PO DAILY #90 tabs 12/15/22 05/01/23 Rx metoprolol succinate 50 mg 50 mg PO DAILY #90 tabs 12/15/22 05/01/23 Rx tablet,extended release 24 hr mirtazapine 15 mg tablet (Remeron) 15 mg PO DAILY #90 tabs 03/08/23 05/01/23 Rx conj estrogen-medroxyprogesterone 1 tab PO DAILY #84 tabs 04/03/23 05/01/23 Rx 0.3 mg-1.5 mg tablet (Prempro) magnesium 250 mg tablet 250 mg PO DAILY hypomagnesemia #30 04/15/23 05/01/23 Rx tabs L. acidophilus,casei,rhamnosus 50 1 cap PO DAILY History of C. 04/17/23 05/01/23 Rx billion cell capsule,delayed difficile #30 caps release (Bio-K plus) levofloxacin 750 mg tablet 750 mg PO DAILY 7 days #14 tabs 04/17/23 05/01/23 Rx bisacodyl 5 mg tablet,delayed 5 mg PO ONCE colonscopy bowel prep 04/20/23 05/01/23 Rx release (Dulcolax (bisacodyl)) #8 tabs bisacodyl 5 mg tablet,delayed 10 mg PO ONCE 04/20/23 04/22/23 History release (Dulcolax (bisacodyl)) inulin 2 gram chewable tablet 4 g PO DAILY 04/20/23 05/01/23 History (Fiber Gummies) Exam Const General: cooperative and anxious Nutritional Appearance: average body habitus Orientation: alert and oriented x3 HENMT Head: normocephalic and atraumatic Eyes Pupils: PERRL Resp Effort & Inspection: normal respiratory effort Auscultation: clear to auscultation bilaterally Cardio Rate: regular rate Rhythm: regular rhythm Heart Sounds: no gallops, no murmurs and no rubs GI Inspection: normal to inspection Palpation: soft, no hepatosplenomegaly and tender (suprapubic and LLQ, + guarding, no rebound) Results Labs 05/01/23 09:55 05/01/23 09:55 Time Spent Time spent with Patient: 40-54 minutes Time was spent: preparing to see the patient(eg.review tests), obtaining and/or reviewing separately otained hiistory, ordering medications,tests, procedures, indepentently interpreting results and counseling the patient
[2023-05-01 10:10] VITALS: BP 115/81; PULSE 83; RESP 17; TEMP 36.7; O2SAT 98
[2023-05-01 10:18] VITALS: BP 115/81; PULSE 83; RESP 17; TEMP 36.7; O2SAT 98
[2023-05-01 10:46] LABS: Abs Immature Grans 0.03 10^3/uL (0.0-0.06); Absolute Basophil Count 0.04 10^3/uL (0.0-0.2); Absolute Eosinophil Count 0.04 10^3/uL (0.0-0.7); Absolute Lymphocyte Count 1.57 10^3/uL (1.2-3.4); Absolute Monocyte Count 0.87 10^3/uL (0.1-0.8); Absolute Neutrophil Count 6.57 10^3/uL (1.2-6.7); Basophils % 0.4; Eosinophils % 0.4; HCT 37.5 % (36.0-46.0); HGB 12.5 g/dL (11.2-15.7); Immature Grans % 0.3; Lymphocytes % 17.2; MCH 30.3 pg (27.0-33.0); MCHC 33.3 % (32.0-36.0); MCV 91 fL (80-95); MPV 10.9 fL (8.0-11.0); Monocytes % 9.5; Neutrophils % 72.2; Platelet Count 299 10^3/uL (130-400); RBC 4.12 10^6/uL (3.93-5.22); WBC 9.12 10^3/uL (4.4-10.8)
[2023-05-01 11:06] LABS: ALT 17 U/L (14-59); AST 11 U/L (15-37); Albumin 3.5 g/dL (3.4-5.0); Alkaline Phosphatase 53 U/L (46-116); Anion Gap 12.3 mmol/L (3-11); BUN 10 mg/dL (7-18); Bilirubin, Total 0.3 mg/dL (0.2-1.0); CO2 23.7 mmol/L (21.0-32.0); CREATININE 1.2 mg/dL (0.55-1.02); Chloride 106 mmol/L (98-107); Estimated GFR 54.13 (mL/min/1.73m2); Glucose 103 mg/dL (74-106); Potassium 3.3 mmol/L (3.5-5.1); Sodium 142 mmol/L (136-145); Total Protein 7.9 g/dL (6.4-8.2)
[2023-05-01] MEDS: PIPERACILLIN/TAZO 3.375 GM in Normal Saline 50 ML IVPB ×3 (11:42→22:03)
[2023-05-01] MEDS: Potassium Chloride 20 MEQ TABCR 40 MEQ PO (11:42)
[2023-05-01] MEDS: Enoxaparin 40 MG/0.4 ML SYR SC (11:42)
[2023-05-01] MEDS: Pantoprazole 40 MG VIAL IVP (11:43)
[2023-05-01] MEDS: Normal Saline - Diluent 50 ML VIAL IJ (13:12)
[2023-05-01] MEDS: Omnipaque 350 MG/ML 100 ML BTL IJ (13:13)
--- NOTE | 2023-05-01 13:25 | DI.CT_ITS ---
Exam(s) CT ABDOMEN PELVIS W EXAM: CT ABDOMEN PELVIS W CLINICAL HISTORY: Chronic diverticulitis, ? abscess. TECHNIQUE: Imaging Protocol: Axial computed tomography images with coronal and sagittal reformatted images were created and reviewed CONTRAST MATERIAL: Intravenous: Omnipaque 350 Contrast volume:100 ml Oral: yes/Breeza 50 mL p.o. COMPARISON: CT CT ABDOMEN PELVIS W from 04/15/2023 FINDINGS: ABDOMEN and PELVIS: Lung Bases: No acute findings. Liver: Normal density. Liver cyst again noted left lobe no suspicious mass. Gallbladder and biliary tract: No radiodense calculus or dilation. Pancreas: Normal density. No abnormal calcifications or inflammatory process. No evidence of mass. Spleen: Normal. Kidneys: Normal size, contour and axis. No radiodense stones. No obstructive uropathy. No suspicious masses seen. Adrenal glands: No masses seen. Vasculature: Abdominal aorta non-dilated. Soft tissues: Unremarkable. Bladder: No gross wall thickening. No calculi.No focal mass. Bowel: Large quantity of stool. Diverticulosis lower descending and sigmoid colon. Wall thickening and surrounding inflammatory changes of the sigmoid. Previously noted wall thickening of the descend ing colon no longer present. No evidence of abscess. No obstruction. No bowel wall thickening. Ap pendix normal. Peritoneal cavity: No ascites. Free air Bones: Unremarkable for age. Reproductive organs: Status post hysterectomy. Cervix remains present. Lymph nodes: Unremarkable. IMPRESSION:: Sigmoid diverticulitis. No evidence of abscess or perforation. RADIATION DOSE DELIVERED: Total DLP DATA REPOSITORY: All CT scans at this facility are submitted to the National Radiology Data Registry (NRDR) Dose Index Registry (DIR) with the [employer] (A[employer]). RADIATION OPTIMIZATION: All CT scans at this facility use at least one of these dose optimization te chniques: automated exposure control; mA and/or kV adjustment per patient size (includes targeted exa ms where dose is matched to clinical indication); or iterative reconstruction.
[2023-05-01] MEDS: Omnipaque 350 MG/ML 50 ML BTL PO (13:27)
[2023-05-01] MEDS: Breeza Beverage 473 ML BTL 946 ML PO (13:29)
[2023-05-01] MEDS: ACETAMINOPHEN 1,000 MG/100 ML BTL 400 MG IVPB (14:43)
[2023-05-01 15:14] VITALS: BP 110/75; PULSE 73; RESP 18; TEMP 37.3; O2SAT 98
--- NOTE | 2023-05-01 16:44 | W.PM.PROGNOT ---
Date of Service Date of service: 05/01/23 Time of Service: 16:44 Assessment and Plan Assessment and plan (1) Diverticulitis: Status: Chronic Assessment and plan: Omaira is a pleasant 53-year-old female with acute on chronic diverticulitis. She has had multiple attacks over the last few months. She has been on antibiotics ongoing now for 3 to 4 weeks with worsening symptoms. CT scan today showed significant inflammation in the distal descending and sigmoid colon. No abscess was noted. Although there is no obstruction that patient is having more trouble passing stool. She is still passing flatus. I think at this point we have tried everything we can to manage her medically. The patient is agreeable to proceed with surgery. The plan is for laparotomy with resection of the diseased portion of her large intestine. She will then either get a end colostomy or loop colostomy depending on the findings and whether I feel it is safe to reanastomose her at this time. The colostomy will be for about 3 to 4 months. We will be able to reverse her once she has recovered from all of this and her nutrition is back up to where it needs to be. I reviewed all of the risks, benefits and complications of the procedure. I answered her questions to her satisfaction. I do feel the patient has a good understanding of both the procedure and its possible complications. Complications include but are not limited to bleeding, infection, injury to small intestine, anastomotic leak, wound dehiscence, injury to bladder or ureter, hypotension, bradycardia. I also discussed with the patient having an epidural done to help with postoperative pain. We discussed having a Brewster catheter placed after she is asleep. The Brewster catheter would stay for as long as she has the epidural. Most of the time the epidural stays for 2 to 3 days and then we are able to shut it off and transition patients to oral pain medications. At this time the patient does not have any more questions. Subjective Subjective Interval history since last seen: I went to see Omaira today after my office hours. We reviewed the CT scan findings and plan for surgery tomorrow. Her sigmoid colon is quite edematous. There was no abscess noted. Patient is feeling better after having some pain medication. Her white count is normal which is good. She still passing flatus. Exam Const General: comfortable and no acute distress Orientation: alert and oriented x3 HENMT Head: normocephalic and atraumatic Resp Effort & Inspection: normal respiratory effort Auscultation: clear to auscultation bilaterally Cardio Rate: regular rate Rhythm: regular rhythm GI Inspection: normal to inspection Palpation: soft, no hepatosplenomegaly and tender Objective Last Vital Signs Temp 99.1 F 05/01/23 15:14 Pulse 73 05/01/23 15:14 Resp 18 05/01/23 15:14 BP 110/75 05/01/23 15:14 Pulse Ox 98 05/01/23 15:14 Laboratory Results - last 24 hr 05/01/23 05/01/23 10:37 14:08 WBC 9.12 RBC 4.12 Hgb 12.5 Hct 37.5 MCV 91 MCH 30.3 MCHC 33.3 RDW 13.0 Plt Count 299 MPV 10.9 Immature Gran % 0.3 Neutrophils % 72.2 Lymphocytes % 17.2 Monocytes % 9.5 Eosinophils % 0.4 Basophils % 0.4 Nucleated RBC % 0.0 Absolute Neutrophils 6.57 Absolute Lymphocytes 1.57 Absolute Monocytes 0.87 H Absolute Eosinophils 0.04 Absolute Basophils 0.04 Sodium 142 Potassium 3.3 L Chloride 106 Carbon Dioxide 23.7 Anion Gap 12.3 H BUN 10 Creatinine 1.2 H Est GFR (CKD-EPI 2020) 54.13 Glucose 103 Calcium 9.0 Total Bilirubin 0.3 AST 11 L ALT 17 Alkaline Phosphatase 53 Total Protein 7.9 Albumin 3.5 Patient ABO/Rh O Positive Antibody Screen NEGATIVE Time Spent with Patient Time Spent with Patient: 25-34 minutes Time was spent: preparing to see the patient(eg.review tests), indepentently interpreting results and counseling the patient
[2023-05-01 17:00] VITALS: TEMP 36.6
[2023-05-01] MEDS: Lactated Ringers 1,000 ML 125 ML IV (17:40)
[2023-05-01] MEDS: Ketorolac 15 MG/ML VIAL IVP (22:02)
[2023-05-01] MEDS: Melatonin 3 MG TAB PO (22:05)
[2023-05-01] MEDS: ALPRAZolam 0.25 MG TAB PO (22:05)
[2023-05-01] MEDS: Normal Saline Flush 10 ML SYR IVP (22:06)
[2023-05-02] VITALS (27 sets, daily range): BP systolic 70–120; BP diastolic 45–78; PULSE 63–89; RESP 15–22; TEMP 36.3–37.8; O2SAT 90–98; BMI 29.2
[2023-05-02] MEDS: Lactated Ringers 1,000 ML 125 ML IV ×2 (03:08→10:49)
[2023-05-02] MEDS: PIPERACILLIN/TAZO 3.375 GM in Normal Saline 50 ML IVPB ×4 (04:29→22:07)
[2023-05-02 07:02] LABS: Abs Immature Grans 0.03 10^3/uL (0.0-0.06); Absolute Basophil Count 0.04 10^3/uL (0.0-0.2); Absolute Eosinophil Count 0.12 10^3/uL (0.0-0.7); Absolute Lymphocyte Count 1.37 10^3/uL (1.2-3.4); Absolute Monocyte Count 0.66 10^3/uL (0.1-0.8); Absolute Neutrophil Count 4.47 10^3/uL (1.2-6.7); Basophils % 0.6; Eosinophils % 1.8; HCT 34.7 % (36.0-46.0); HGB 11.8 g/dL (11.2-15.7); Immature Grans % 0.4; Lymphocytes % 20.5; MCV 91 fL (80-95); MPV 11.3 fL (8.0-11.0); Monocytes % 9.9; Neutrophils % 66.8; Platelet Count 283 10^3/uL (130-400); RBC 3.81 10^6/uL (3.93-5.22); RDW 12.8 % (11.7-14.6); RDW-SD 42.5 fL; WBC 6.69 10^3/uL (4.4-10.8)
[2023-05-02] MEDS: Gabapentin 300 MG CAP 600 MG PO (07:11)
[2023-05-02] MEDS: Celecoxib 200 MG CAP PO (07:12)
[2023-05-02 07:23] LABS: Anion Gap 12.4 mmol/L (3-11); BUN 11 mg/dL (7-18); CO2 24.6 mmol/L (21.0-32.0); CREATININE 1.4 mg/dL (0.55-1.02); Calcium 8.8 mg/dL (8.5-10.1); Chloride 104 mmol/L (98-107); Estimated GFR 44.99 (mL/min/1.73m2); Glucose 94 mg/dL (74-106); Potassium 3.5 mmol/L (3.5-5.1); Sodium 141 mmol/L (136-145)
--- NOTE | 2023-05-02 07:32 | W.ANESPRE ---
General Info Date of Service Date Performed: 05/02/23 Height: 5 ft 3 in Weight: 74.797 kg Body Mass Index (BMI): 29.2 Surgical Procedure: Operation Date: 05/02/23 08:50 Proposed Procedure Side Surgeon p Exploratory Laparotomy, Sigmoid resection, Colostomy Sloane Rosenberg MD Meds Allergies and Home Medications Allergies Allergy/AdvReac Type Severity Reaction Status Date / Time losartan Allergy Intermediate angioedema Verified 04/20/23 11:57 trazodone AdvReac Intermediate Headache Verified 04/20/23 11:57 codeine [Codeine] AdvReac heart Verified 04/20/23 11:57 racing lidocaine AdvReac heart Verified 04/20/23 11:57 racing Home Medication Medication Instructions Recorded omeprazole magnesium 20 mg 20 mg PO DAILY #90 tabs 08/03/22 tablet,delayed release (Prilosec OTC) atorvastatin 40 mg tablet 40 mg PO DAILY #90 tabs 08/22/22 fenofibrate nanocrystallized 145 145 mg PO DAILY #90 tabs 08/22/22 mg tablet (Tricor) hydrochlorothiazide 12.5 mg tablet 12.5 mg PO DAILY #90 tabs 12/15/22 metoprolol succinate 50 mg 50 mg PO DAILY #90 tabs 12/15/22 tablet,extended release 24 hr conj estrogen-medroxyprogesterone 1 tab PO DAILY #84 tabs 04/03/23 0.3 mg-1.5 mg tablet (Prempro) magnesium 250 mg tablet 250 mg PO DAILY hypomagnesemia #30 04/15/23 tabs L. acidophilus,casei,rhamnosus 50 1 cap PO DAILY History of C. 04/17/23 billion cell capsule,delayed difficile #30 caps release (Bio-K plus) levofloxacin 750 mg tablet 750 mg PO DAILY 7 days #14 tabs 04/17/23 inulin 2 gram chewable tablet 4 g PO DAILY 04/20/23 (Fiber Gummies) mirtazapine 15 mg tablet (Remeron) 15 mg PO HS 05/01/23 Current Visit Medications: Current Medications Generic Name Dose Route Start Last Admin Trade Name Freq PRN Reason Stop Dose Admin Albuterol Sulfate 2.5 mg 05/01/23 09:51 Albuterol 2.5 Mg/3 Ml Inh Soln Vial UPD Q4H PRN PRN Alprazolam 0.25 mg 05/01/23 21:00 05/01/23 22:05 Alprazolam 0.25 Mg Tab PO 0.25 mg HS PRN PRN Administration Alvimopan 12 mg 05/02/23 07:00 05/02/23 07:11 Alvimopan 12 Mg Cap PO 12 mg PREOP HUSSAIN Administration Enoxaparin Sodium 40 mg 05/01/23 10:00 05/01/23 11:42 Enoxaparin 40 Mg/0.4 Ml Syr SC 40 mg Q24H HUSSAIN Administration Fenofibrate 145 mg 05/02/23 08:30 Fenofibrate, Micronized 145 Mg Tab PO DAILY HUSSAIN Hydrochlorothiazide 12.5 mg 05/02/23 08:30 Hydrochlorothiazide 12.5 Mg Tab PO DAILY [facility] Hydromorphone HCl 0.5 mg 05/01/23 09:51 Hydromorphone 2 Mg/Ml Syr IVP Q3H PRN PRN Ringer's Solution 1,000 mls @ 125 mls/hr 05/01/23 10:00 05/02/23 05:32 IV 125 mls/hr INFUSION HUSSAIN Infusion Piperacillin Sod/Tazobactam 50 mls @ 100 mls/hr 05/01/23 10:00 05/02/23 05:05 Sod 3.375 gm/ Sodium Chloride IVPB Infused Q6H HUSSAIN Infusion Acetaminophen 1,000 mg in 100 mls @ 400 mls/hr 05/01/23 10:00 05/01/23 14:58 Ofirmev IVPB Infused Q8H PRN PRN Infusion Abdominal Pain IV Miscellaneous Supplies 1 each 05/01/23 10:00 Iv Access IV DIRECTED [facility] Ketorolac Tromethamine 15 mg 05/01/23 19:49 05/01/23 22:02 Ketorolac 15 Mg/Ml Vial IVP 05/06/23 19:48 15 mg Q6H PRN PRN Administration Melatonin 3 mg 05/01/23 22:00 05/01/23 22:05 Melatonin 3 Mg Tab PO 3 mg HS HUSSAIN Administration Metoprolol Succinate 50 mg 05/02/23 08:30 Metoprolol Cr 50 Mg Tabcr PO DAILY [facility] Mirtazapine 15 mg 05/02/23 22:00 Mirtazapine 15 Mg Tab PO HS [facility] Ondansetron HCl 4 mg 05/01/23 09:51 Ondansetron 4 Mg/2 Ml Vial IVP Q4H PRN PRN Pantoprazole Sodium 40 mg 05/01/23 10:00 05/01/23 11:43 Pantoprazole 40 Mg Vial IVP 40 mg Q24H HUSSAIN Administration Pt's Own Conj Estrog 1 each 05/02/23 08:30 -Medroxyprogest [ PO Prempro] 0.3-1.5 Mg DAILY HUSSAIN Tab Simethicone 80 mg 05/01/23 09:51 Simethicone 80 Mg Chew PO Q4H PRN PRN Sodium Chloride 0 ml 05/01/23 09:51 05/01/23 22:06 Normal Saline Flush 10 Ml Syr IVP 20 ml PRN PRN Administration Sodium Chloride 0 ml 05/01/23 09:51 Normal Saline 10 Ml Vial IJ DIRECTED PRN PFSH Active Problems Active Problems: Problem Status Onset Code Smoker F17.200 Diverticulitis K57.92 Abdominal pain R10.9 Diverticulitis large intestine K57.32 Hyperplastic colon polyp ~01/17/23 K63.5 Diverticulosis K57.90 Chronic constipation K59.09 Adjustment disorder with anxious mood F43.22 Essential hypertension I10 Hyperlipidemia LDL goal <130 E78.5 C. difficile colitis A04.72 Left lower quadrant pain R10.32 Depression F32.9 Dizziness R42 Hot flashes R23.2 Tobacco abuse Z72.0 Leg pain, bilateral M79.604, M79.605 Upper respiratory infection J06.9 Ovarian mass, right N83.9 Medical History Medical History Acute diverticulitis Diverticulitis Tonsillar hypertrophy Peritonsillar abscess Surgical History Surgical History S/P laparoscopic assisted vaginal hysterectomy (LAVH) super-cervical S/P tonsillectomy History of colonoscopy (~12/2022) Ligation of fallopian tube HYSTERECTOMY Supracervical Tobacco Smoking/Tobacco Use Status: Current every day Tobacco Type: cigarettes Smoking cigarettes per day: 7 Passive smoking exposure: Yes Second hand exposure: Yes Alcohol Alcohol Intake: current Alcohol intake frequency: a few times a month Alcohol type: beer Substance Use Substance use type: does not use Vital Signs and Lab Results Vital Signs Most Recent Vital Signs in EMR: Most Recent Vital Signs Temp Pulse Resp BP Pulse Ox 36.3 C L 68 15 116/78 94 05/02/23 07:05 05/02/23 07:05 05/02/23 07:05 05/02/23 07:05 05/02/23 07:05 Lab Results 05/02/23 06:20 05/02/23 06:20 Blood Type / Crossmatch: Patient ABO/Rh O Positive 05/01/23 Antibody Screen NEGATIVE 05/01/23 Complete Blood Count: White Blood Count 6.69 10^3/uL (4.4-10.8) 05/02/23 06:20 Red Blood Count 3.81 10^6/uL (3.93-5.22) L 05/02/23 06:20 Hemoglobin 11.8 g/dL (11.2-15.7) 05/02/23 06:20 Hematocrit 34.7 % (36.0-46.0) L 05/02/23 06:20 Platelet Count 283 10^3/uL (130-400) 05/02/23 06:20 Venous Blood Lactate 0.9 mmol/L (0.6-1.4) 04/15/23 17:19 Complete Metabolic Panel: Sodium 141 mmol/L (136-145) 05/02/23 06:20 Potassium 3.5 mmol/L (3.5-5.1) 05/02/23 06:20 Chloride 104 mmol/L (98-107) 05/02/23 06:20 Carbon Dioxide 24.6 mmol/L (21.0-32.0) 05/02/23 06:20 BUN 11 mg/dL (7-18) 05/02/23 06:20 Creatinine 1.4 mg/dL (0.55-1.02) H 05/02/23 06:20 Est GFR (CKD-EPI 2020) 44.99 (mL/min/1.73m2) 05/02/23 06:20 Magnesium 1.2 mg/dL (1.8-2.4) L 04/15/23 17:19 Calcium 8.8 mg/dL (8.5-10.1) 05/02/23 06:20 Albumin 3.5 g/dL (3.4-5.0) 05/01/23 10:37 Glucose 94 mg/dL (74-106) 05/02/23 06:20 C-Reactive Protein 4.65 mg/dL (0.0-0.3) H 04/15/23 17:19 Liver Function Panel: Alanine Aminotransferase (ALT/SGPT) 17 U/L (14-59) 05/01/23 10:37 Aspartate Amino Transf (AST/SGOT) 11 U/L (15-37) L 05/01/23 10:37 Coagulation Panel: No Data to Display Cardiac Panel: No Data to Display Arterial Blood Gas: No Data to Display Venous Blood Gas: No Data to Display Pancreas Panel: Lipase 36 U/L (16-77) 04/15/23 17:19 Thyroid Panel: No Data to Display Infectious Disease: No Data to Display Blood Cultures: No Data to Display Toxicology Panel: No Data to Display Panel: No Data to Display Anesthesia Assessment and Plan Anesthesia History Personal History: No History of Anesthesia Complications Family History: No Family History of Anesthesia Complications Exercise Tolerance Exercise Tolerance: Metabolic Equivalents>4 Pertinent Negatives Pertinent Negatives: No Major Cardiovascular Symptoms or Complaints, No Major Pulmonary Symptoms or Complaints and No History of CVA/TIA Cardiac & Pulmonary Exam Cardiac Exam: Normal S1/S2 Heart Sounds Pulmonary Exam: Clear Bilateral Breath Sounds Implantable Cardiac Device Does patient have a Pacemaker or an ICD?: No Airway Exam Known Difficult Airway: No Mallampati Class: 2 Mouth Opening: Normal (> 3cm) Thyromental Distance: Greater than 3 cm Neck Range of Motion: Full ROM Neck Circumference: Normal Teeth Condition: Removable Dentures/Plates Upper (partial) ASA Classification ASA Score: ASA 2 Emergency Case?: No NPO Status NPO Status: NPO Clears >2 hours, Solids >8 hours Status Status: History of Hysterectomy Anesthesia Plan Resuscitation Status: Full Code Anesthesia Technique: General Anesthesia Airway Planned: Endotracheal Tube Pain Management: Epidural Monitors Used: Standard Monitors Preoperative Comments:: Very anxious will plan versed prior to transfer to OR.
[2023-05-02] MEDS: Bupivacaine 0.25% Pres-Free 30 ML VIAL (08:50)
--- NOTE | 2023-05-02 09:10 | W.ANESNEU ---
Epidural/Spinal Catheter Date Performed: 05/02/23 Procedure Start: 08:08 Procedure Stop: 08:19 Requesting Provider: Sloane Rosenberg Procedure Location: PACU Reason Performed: Postoperative Analgesia Standard Monitors Applied: ECG, Blood Pressure and SpO2 Patient Position: Sitting Sedation Given (Indicate Dose Given): Versed IV Dose:: 2 mL Patient Mental Status: Sedate with meaningful communication Sterility: Hand Hygiene, Surgical Cap, Surgical Mask, Sterile Gloves, Sterile Drape/Sheet and Chlorhexidine Procedure Location: L2-L3 Interspace Epidural Needle: Tuohy 17 Guage Needle Length: 3.5 Inch Needle Approach: Midline Epidural Procedure: Skin Prepped, Sterile Drape Placed, 1% Lidocaine to skin and subcutaneous tissue with 25G needle, Tuohy Needle placed, EVIE to Saline Used, Epidural Catheter Placed, Negative Heme, Negative CSF Flow and Tuohy Needle Removed Catheter Placed?: Catheter Placed Test Dose (Indicate Dose Given): 3ml 1.5% Lidocaine with 1:200K Epinephrine Given and Negative Test Dose Loss of Resistance Depth (cm): 6 Catheter depth at skin (cm): 11 Dressing: Sorbaview Dressing Placed, Mastisol Used and Dressing reinforced with Tape Epidural Provider Bolus (Indicate Dose Given): None Given Additives (Indicate Dose Given ): None Infusion Medication: No Infusion Started Block Level: N/A Paresthesia: None Ultrasound: Not Used Number of Attempts (See previous attempts in note section): 1 Procedure Tolerated: No Complications and Patient tolerated well Procedure Outcome: Successful Performed By: Maite Olivares
--- NOTE | 2023-05-02 09:18 | BOWEL_PTH ---
PATIENT: Omaira Espinoza LOC: ICU U#:[id number] AGE/SX: 53/F ROOM: ICU.219 RE05/01/[address]: Sloane Rosenberg MD : 1970 BED: A DIS: 05/05/2023 SPEC #: [id number] RECD: 05/02/23 11:29 STATUS: SOURukhsana REQ #: [id number] DARA: 05/02/23 09:[address]: Sloane Rosenberg DEPT: Surgical Specimen RECD BY: Tiny Duvall ENTERED: 05/02/23 11:30 SP TYPE: Bowel OTHR DR: Charanjit Arias MD Tissues: 1 - BOWEL RESECTION(OTHER) Procedures: GROSS AND MICRO LEVEL 5 Comments: [id number]
[2023-05-02] MEDS: ePHEDrine 25 MG/5 ML Syringe IVP ×2 (10:30→11:00)
--- NOTE | 2023-05-02 10:40 | ROE_ITS ---
Date of service: 05/02/23 Time of Service: 10:40 Operative Note Operative Note DATE OF PROCEDURE: 05/02/23 PRE-OP DIAGNOSIS: acute on chronic divgerticulitis POST-OP DIAGNOSIS: same PROCEDURE: Laparotomy with sigmoid resection and side to side anastamosis SURGEON: Sloane Rosenberg ALUMNI SECRETARY: Patricia Martinez ANESTHESIA TYPE: Local By Surgeon, General LMA/ETT and Epidural Refer to Anesthesia Record ESTIMATED BLOOD LOSS: 50 PATHOLOGY: other (sigmoid colon) COMPLICATIONS: None Patient was transported to: PACU Patient's condition: stable Indications: Omaira was admitted yesterday to the hospital with increasing left lower quadrant pain from her chronic diverticulitis. She has been battling with diverticulitis now for 4 to 5 months. She has had several courses of antibiotics without much improvement in her symptoms. I saw her this morning prior to the patient going down to surgery. We again reviewed the procedure which would be an exploratory laparotomy with resection of the diseased bowel, possible anastomosis versus end colostomy versus loop colostomy. We reviewed the risks and complications again and she wished to proceed. No guarantees were given or implied. Findings: Approximately 12 to 15 cm portion of sigmoid colon and distal descending colon with severe inflammation and edema. The rest of the large intestine was healthy and not edematous. Small intestine was all healthy. Patient is status post hysterectomy. Left ovary identified and was normal. Left ureter identified during surgery as well. Procedure Description: After informed consent was obtained from the patient by anesthesia and the photographic specialist and myself the patient was taken down to the PACU. An epidural was placed in PACU. Once the epidural was placed the patient was brought to the operating room. I was able to set the patient up in the gurney and marked an area that would be away from the umbilicus and away from her natural skin folds in order to place a marker there for a potential colostomy. Patient was then placed onto the operating room table in a supine position. SCDs were applied. Monitors were applied and the patient was then placed under general anesthesia and intubated. A second IV was placed by anesthesia in her left hand. Next the abdomen was prepped and draped in a sterile surgical fashion. At this point a timeout was done. The patient's name, date of , allergies to medications, proposed procedure, DVT prophylaxis, antibiotic prophylaxis were all reviewed. Next 40% bupivacaine was injected into the dermis and subcutaneous tissue from the umbilicus down to the pubic symphysis. At an incision was made with a 10 blade. Dissection was taken down to through the subcutaneous tissue with cautery to the down to the fascia. The fascia was opened. Once in the peritoneum I was able to place my fingers underneath the fascia to make sure there is no bowel adhered to the fascia. The fascia was then opened the entire length of the incision. The incision was made a little slightly longer to just above the umbilicus in order to be able to get to the splenic flexure if needed. Next the Omni retractor was secured to the bed and the left abdominal wall was retracted. A moist towel was then placed into the abdomen and the omentum and small intestine were swept to the right side and secured with malleable retractors. This allowed me to visualize the sigmoid colon. I palpated the sigmoid colon which was quite inflamed and edematous. The left ovary was adhered to the area of diverticulitis. I was able to gently dissect the ovary and fallopian tube away. Blunt dissection with some adhesions was then done all the way down to the rectum. I was able to straighten the rectum and find a spot but about 2 cm beyond the area of inflammation and swelling. A small incision was made into the mesentery and the distal sigmoid colon was transected using a laparoscopic straight stapler. The mesentery was then transected with the LigaSure all the way to about 2 cm above the more proximal end of the diseased intestine. Again as the bowel was transected here with the great stapler. The specimen was marked distally and then removed from the operating field and placed in formalin. Next the distal descending colon was laid down and it came down beyond the rectal stump by about 3 cm. The bowel looked healthy and therefore a [id number] anastomosis was done using a stapler. The subsequent enterotomy between the descending colon and rectum was closed in 2 layers with Vicryl and silk sutures. There was a nice opening between the descending colon and the distal sigmoid proximal rectum. The abdomen was then irrigated with 2 L of warm saline. At the end the effluent was clear. No bleeding was identified from the mesentery. The anastomosis looked healthy and pink. The retractors were removed and the small intestine was placed back into the midline and covered with the omentum. Fascia was grasped with Calpine's. The fascia was closed with 2-0 Prolene suture running. Once the fascia was closed the subcutaneous tissue was irrigated and reapproximated using 3-0 Vicryl. The dermis was then reapproximated using skin jayla. The skin was cleaned and dried and a mi dressing was applied. The patient was then woken up extubated and taken back to PACU in stable condition. Sponge instrument needle counts were correct at the end of the case x 2. The patient tolerated the procedure well and there were no immediate complications.
[2023-05-02] MEDS: FentaNYL/ROPIvacaine 2 mcg/ml and 0.1% 200 ML CADD Cassette EP (11:10)
--- NOTE | 2023-05-02 11:35 | W.ANESPOSTOP ---
Postoperative Evaluation Date, Time and Location Date Performed: 05/02/23 Time Performed: :22 Patient Location: PACU Vital Signs Most Recent Imported Vital Signs: Most Recent Vital Signs Temp Pulse Resp BP Pulse Ox 36.7 C 78 16 120/62 95 05/02/23 11:25 05/02/23 11:25 05/02/23 11:25 05/02/23 11:25 05/02/23 11:25 Pain Score Most Recent Pain Score: Most Recent Pain Score Pain Level 0 05/02/23 11:25 Assessment Mental Status: Awake (Alert & Oriented to Patient Baseline) Airway and Respiratory Function: Patent airway with normal (patient baseline) respiratory exam Cardiovascular Function: Hemodynamically Stable Hydration Status: Adequately Hydrated Nausea & Vomiting: No Nausea or Vomiting Pain: Pt. Denies Any Pain Peripheral Nerve Block: Patient did not receive a nerve block Postoperative Comments:: Epidural continuous infusion initiated at 1107 at 8mL/hr with PCEA 5 q 15min PRN. Instruction given to patient and she verbalized understanding.
--- NOTE | 2023-05-02 13:08 | INITIAL_ITS ---
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 She is independent at baseline. CURRENT FUNCTIONAL STATUS:: Omaira was lying in bed when CM met with her. Her and daughter were in the room visiting. She stated that per MD, her surgery went well, and that she did not have to have an ostomy, which she was expecting. She was very happy about the outcome of her surgery. She also stated that per MD, she will be on clear liquids, and would advance her diet as tolerated. She does have drains; unclear at this time if she will require HH RN upon discharge for drain care. CM will continue to follow. ADVANCE DIRECTIVES:: Not on file. CM will offer forms. Has patient been provided with info about the portal/API?: Yes Did the patient sign up for the portal?: Yes CODE STATUS:: Full Code INSURANCE COVERAGE / FINANCIAL ISSUES:: [facility] CURRENT HOME/COMMUNITY SERVICES/EQUIPMENT:: None PRIMARY CARE PHYSICIAN:: Charanjit Arias POTENTIAL DISCHARGE NEEDS:: Follow up appointments. PATIENT/FAMILY EDUCATION NEEDS:: Review discharge instructions and limitations, discussion of self care needs including ask me three. ANTICIPATED BARRIERS TO DISCHARGE:: None. TRANSPORTATION:: Via private vehicle by family. PLAN:: Anticipate Omaira will return home once medically cleared by MD. Her will drive her home via private vehicle. She will follow up with surgical services, her PCP and discharge plan of care. CM will continue to follow. PFSH All Active Problems Smoker (Acute) Diverticulitis (Chronic) Abdominal pain (Acute) Diverticulitis large intestine (Acute) Hyperplastic colon polyp (Acute ~01/17/23) Diverticulosis (Acute) Chronic constipation (Acute) Adjustment disorder with anxious mood (Acute) Essential hypertension (Acute) Hyperlipidemia LDL goal <130 (Acute) C. difficile colitis (Acute) Left lower quadrant pain (Acute) Depression (Chronic) Dizziness (Acute) Hot flashes (Acute) Tobacco abuse (Acute) Leg pain, bilateral (Acute) Upper respiratory infection (Acute) Ovarian mass, right (Acute) we will get u/s, as suggested tylenol as needed for pain Medical History Acute diverticulitis Diverticulitis Tonsillar hypertrophy Peritonsillar abscess Surgical History S/P laparoscopic assisted vaginal hysterectomy (LAVH) super-cervical S/P tonsillectomy History of colonoscopy (~12/2022) Ligation of fallopian tube HYSTERECTOMY Supracervical Family History Mother Hyperlipidemia Father Essential hypertension Sister No problems noted. Brother Hyperlipidemia Grandfather No problems noted. Grandfather Personal history of malignant neoplasm COLON Grandmother No problems noted. 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 Pets and animals: Yes Pets and animals: dog(s) Sexually active: Yes Do you think of yourself as: straight/heterosexual Current gender identity: female What is your relationship status?: How often do you talk on the phone with friends or family?: twice per week How often do you get together with friends or relatives?: twice per week How often do you attend mandaen or presybeterian services?: decline to answer Do you belong to any clubs or organized social groups?: no Panel score (0-1 are the most socially isolated patients): 2 What type of physical activity do you participate in: walking Duration: 15-30 minutes/day Frequency: 1-2 times per week Rekha/Anabaptism: None Special rekha needs: No Seatbelt use: always Helmet use: Yes Helmet use: always Drive intox or ride w/intox ambulance driver: No Do you feel safe at home: Yes Do you feel safe in your relationship?: Yes
--- NOTE | 2023-05-02 16:40 | CHAPLAIN ---
I had a brief visit with Omaira. She was visiting with her and daughter. I explained my role and offered support.
[2023-05-02] MEDS: ALPRAZolam 0.25 MG TAB PO (21:07)
[2023-05-02] MEDS: Mirtazapine 15 MG TAB PO (21:07)
[2023-05-02] MEDS: Melatonin 3 MG TAB PO (21:08)
[2023-05-02] MEDS: Lactated Ringers 1,000 ML 75 ML IV (21:08)
[2023-05-02] MEDS: Normal Saline Flush 10 ML SYR IVP ×2 (22:07→23:12)
[2023-05-03] VITALS (74 sets, daily range): BP systolic 71–115; BP diastolic 51–78; PULSE 60–112; RESP 14–33; TEMP 37.5–40.3; O2SAT 93–100
[2023-05-03] MEDS: Normal Saline Flush 10 ML SYR IVP ×4 (04:01→21:29)
[2023-05-03] MEDS: PIPERACILLIN/TAZO 3.375 GM in Normal Saline 50 ML IVPB ×2 (04:02→10:09)
[2023-05-03 06:35] LABS: Abs Immature Grans 0.02 10^3/uL (0.0-0.06); Absolute Basophil Count 0.01 10^3/uL (0.0-0.2); Absolute Eosinophil Count 0.01 10^3/uL (0.0-0.7); Absolute Lymphocyte Count 0.98 10^3/uL (1.2-3.4); Absolute Monocyte Count 0.49 10^3/uL (0.1-0.8); Absolute Neutrophil Count 6.25 10^3/uL (1.2-6.7); Basophils % 0.1; Eosinophils % 0.1; HCT 30.1 % (36.0-46.0); HGB 10.1 g/dL (11.2-15.7); Immature Grans % 0.3; Lymphocytes % 12.6; MCH 30.6 pg (27.0-33.0); MCHC 33.6 % (32.0-36.0); MCV 91 fL (80-95); MPV 10.9 fL (8.0-11.0); Monocytes % 6.3; Neutrophils % 80.6; Platelet Count 297 10^3/uL (130-400); RDW 12.7 % (11.7-14.6); WBC 7.76 10^3/uL (4.4-10.8)
[2023-05-03 06:45] LABS: Anion Gap 9.5 mmol/L (3-11); BUN 10 mg/dL (7-18); CO2 27.5 mmol/L (21.0-32.0); CREATININE 1.1 mg/dL (0.55-1.02); Chloride 105 mmol/L (98-107); Estimated GFR 60.08 (mL/min/1.73m2); Glucose 118 mg/dL (74-106); Potassium 3.4 mmol/L (3.5-5.1); Sodium 142 mmol/L (136-145)
[2023-05-03 06:52] LABS: Calcium 8.7 mg/dL (8.5-10.1)
[2023-05-03] MEDS: hydroCHLOROthiazide 12.5 MG TAB PO (07:44)
[2023-05-03] MEDS: Fenofibrate, Micronized 145 MG TAB PO (07:45)
[2023-05-03] MEDS: Metoprolol CR 50 MG TABCR PO (07:45)
[2023-05-03] MEDS: FentaNYL/ROPIvacaine 2 mcg/ml and 0.1% 200 ML CADD Cassette EP (08:15)
--- NOTE | 2023-05-03 08:17 | ANES.NEURP_ITS ---
Epidural/Spinal Daily Note Date Performed: 05/03/23 Assessment Time: 08:17 Patient Location: Med/Surg Catheter Type in Place: Epidural Catheter Dressing Assessment: Dressing intact with good adherence Catheter Assessment: Catheter Labeled and Intact and Functioning Previous Catheter Depth Noted (cm): 11 Current Catheter Depth (cm): 11 Current Medication Infusion: Ropivacaine 0.1% with Fentanyl 2mcg/ml Current Maintenance Infusion Rate (ml/hour): 8 Current PCEA Bolus Dose (ml): 5 Current Pain Score (0-10): 3 Medication Infusion Stopped, Catheter Removal Planned: No Sensory / Motor Block Comments: Legs less heavy per patient, can bend knees, numbness at mid to upper thighs bilaterally. New Bolus Given or Change in Infusion Made: No Daily Management Comments: Denies nausea, taking clear liquids well. Fine rales in bases, encouraged C&DB and incentive spirometer. Plan: continue current infusion, patient started using PCEA early this am, jack ent to be up in chair today. Completed By: Maite Olivares
--- NOTE | 2023-05-03 08:38 | NUR.NOTE ---
When attempting to start new bag of fentanyl for pt, there were air bubbles present in the line conncted to pt. Line was disconnected and reprimed however 3.6 mls of fentanyl was wasted in white bucket next to pyxis. Marilia Sher RN was a witness. Pharmacy notified. Nursing Note:
--- NOTE | 2023-05-03 08:41 | PDOC.CMPRO ---
Date of service: 05/03/23 Time of Service: 08:41 Care Management Progress Note Progress Note Text Progress Note Text: S/O: Omaira was lying in bed when CM met with her, visiting with her and daughter. Her daughter stated that Omaira has had a high fever today, and the reason is unclear at this time. Per report, her WBC is within normal limits, and her physical exam is not consistent with intra-abdominal complications. She was also hypotensive, and her epidural was stopped, which helped to improve her blood pressure. She is reporting pain, and her pain medication was adjusted. She was transferred to the ICU for closer monitoring. CM will continue to follow. A: Omaira is a 53 year old female admitted to [facility] on 05/01/23 for acute on chronic diverticulitis. P: Anticipate Omaira will return home once medically cleared by . Her will drive her home via private vehicle. She will follow up with surgical services, her PCP and discharge plan of care. CM will continue to follow.
[2023-05-03] MEDS: Ondansetron 4 MG/2 ML VIAL IVP ×2 (09:08→15:11)
[2023-05-03] MEDS: Enoxaparin 40 MG/0.4 ML SYR SC (10:09)
[2023-05-03] MEDS: ACETAMINOPHEN 1,000 MG/100 ML BTL 400 MG IVPB ×2 (10:19→17:58)
--- NOTE | 2023-05-03 11:22 | PHA.REVIEW2 ---
Pharmacy Admission Review Admission Clinical Review Admission Pharmacy Review: losartan Allergy (Intermediate, Verified 04/20/23 11:57) angioedema trazodone Adverse Reaction (Intermediate, Verified 04/20/23 11:57) Headache codeine [Codeine] Adverse Reaction (Verified 04/20/23 11:57) heart racing lidocaine Adverse Reaction (Verified 04/20/23 11:57) heart racing Resuscitation Status Full Code Height 5 ft 3 in Weight 74.797 kg Pharmacy Admission Review Renal Dosing Renal Dosing: BUN 10 mg/dL (7-18) 05/03/23 06:00 Creatinine 1.1 mg/dL (0.55-1.02) H 05/03/23 06:00 Medications needing adjustments: Reviewed (CrCl 57.29 mL/min) Anticoagulation Anticoagulation: Hgb 10.1 g/dL (11.2-15.7) L 05/03/23 06:00 Hct 30.1 % (36.0-46.0) L 05/03/23 06:00 Plt Count 297 10^3/uL (130-400) 05/03/23 06:00 Creatinine 1.1 mg/dL (0.55-1.02) H 05/03/23 06:00 DVT Prophylaxis: Reviewed Medications: Enoxaparin (40mg q24h) Opiate Usage Evaluate Pain Scale/Pains Meds: Reviewed (Epidural for post surgery) Scheduled Bowel Reg ordered if on Opiates?: No Relevant Labs Relevant Labs: Sodium 142 mmol/L (136-145) 05/03/23 06:00 Potassium 3.4 mmol/L (3.5-5.1) L 05/03/23 06:00 Chloride 105 mmol/L (98-107) 05/03/23 06:00 Electrolytes, C-Reactive P, ESR: Reviewed (K 3.4) Cardiac Review BP, HR, EF%: Reviewed (BP 92/61, HR 106) QTc Review QTc: Reviewed (No EKG in patient chart) IV to PO Switch IV Medications: Reviewed Home Meds Home Med List reviewed: Reviewed Current Meds Current Medication Order Review: Reviewed Pharmacy Antibiotic Review Pharmacy Antibiotic Activity: Reviewed, no change Comments: Continues on Zosyn day 3. Patient is postop, has been febrile since 0947 today (39.1 C, 39.9 C), WBC WNL.
--- NOTE | 2023-05-03 12:16 | PDOC.ANES ---
Date of service: 05/03/23 Time of Service: 11:52 Anesthesia Note Report Anesthesia Note: Notified by med/surg that patient has a fever, low BP, and nausea/vomiting. i assessed patient, turned off the epidural infusion and notified Dr. Martinez, surgeon on-call re: change in status. He will be over to see patient. Dr. Rosenberg also now available, she will see patient.
--- NOTE | 2023-05-03 12:30 | DI.RAD_ITS ---
Exam(s) XR PORTABLE CHEST AP EXAM: XR PORTABLE CHEST AP CLINICAL HISTORY: fevers, postop day #1 s/p sig resection TECHNIQUE: 2D digital imaging was performed. COMPARISON: CR LEFT SCAPULA from 07/13/2017 FINDINGS: Extremely limited due to expiratory changes and supine positioning. LUNGS: Grossly clear. No pleural abnormality seen. HEART: Normal size. AORTA: Normal diameter. BONES: Unremarkable for age. Soft tissues: Unremarkable. IMPRESSION: Limited exam. No acute findings. DATA REPOSITORY: RADIATION DOSE DELIVERED:
[2023-05-03] MEDS: Lactated Ringers 1,000 ML 1000 ML IV ×2 (12:59→21:00)
[2023-05-03] MEDS: Ketorolac 15 MG/ML VIAL IVP ×2 (13:38→19:32)
--- NOTE | 2023-05-03 13:57 | W.PM.PROGNOT ---
Date of Service Date of service: 05/03/23 Time of Service: 12:30 Assessment and Plan Assessment and plan (1) History of colon resection: Assessment and plan: Patient is POD #1 from open sigmoid resection with anastamosis. Abdomen is soft. NO peritoneal findings labs are reassuring Hypotension- suspect combination of epidural (vasodilatation), vagal response to large liquid BM and metoprolol and HCTZ Fevers- NOt entirely sure why she is having fevers. Still on antibiotics. Will stop antibiotics Order CXR Give one liter fluid bolus Check for C.Diff Order Hydromorphone for pain as epidural has been stopped Ativan for anxiety (2) Fever: Status: Acute Qualifiers: Fever type: unspecified Qualified Code(s): R50.9 - Fever, unspecified (3) Hypotension: Status: Acute Qualifiers: Hypotension type: other hypotension type Qualified Code(s): I95.89 - Other hypotension Subjective Subjective Interval history since last seen: Called to see patient for hypotension, N/V after having a large liquid stool. Anesthesia saw the patient and stopped her epidural. Patient also having high fevers, up to 103. Nursing stopped her fluids this am due to crackles. I/O -900 today. Great UOP. Labs are good. Hgb has decreased into the 10 range. BM not grossly bloody per nursing Patient complains of upper abdominal pain. This pain was present prior to surgery. Exam Const General: cooperative, comfortable and anxious Nutritional Appearance: average body habitus Orientation: alert and oriented x3 HENMT Head: normocephalic and atraumatic Resp Effort & Inspection: normal respiratory effort Auscultation: clear to auscultation bilaterally Cardio Rate: regular rate Rhythm: regular rhythm GI Palpation: soft, no hepatosplenomegaly and tender (along the incision. No guarding or rebound) Objective Last Vital Signs Temp 102.0 F H 05/03/23 11:42 Pulse 104 H 05/03/23 11:54 Resp 18 05/03/23 11:54 BP 78/56 L 05/03/23 11:54 Pulse Ox 95 05/03/23 11:54 Laboratory Results - last 24 hr 05/03/23 06:00 WBC 7.76 RBC 3.30 L Hgb 10.1 L Hct 30.1 L MCV 91 MCH 30.6 MCHC 33.6 RDW 12.7 Plt Count 297 MPV 10.9 Immature Gran % 0.3 Neutrophils % 80.6 Lymphocytes % 12.6 Monocytes % 6.3 Eosinophils % 0.1 Basophils % 0.1 Nucleated RBC % 0.0 Absolute Neutrophils 6.25 Absolute Lymphocytes 0.98 L Absolute Monocytes 0.49 Absolute Eosinophils 0.01 Absolute Basophils 0.01 Sodium 142 Potassium 3.4 L Chloride 105 Carbon Dioxide 27.5 Anion Gap 9.5 BUN 10 Creatinine 1.1 H Est GFR (CKD-EPI 2020) 60.08 Glucose 118 H Calcium 8.7 Time Spent with Patient Time Spent with Patient: 25-34 minutes Time was spent: ordering medications,tests, procedures and counseling the patient
[2023-05-03] MEDS: HYDROmorphone 2 MG/ML SYR 1 MG IVP (14:10)
--- NOTE | 2023-05-03 14:27 | NUR.NOTE ---
Pt had t max of 39.9 this morning with a BP of 64/46. Pt reports feeling dizzy and lightheaded. HR 106, RR 20 and SpO2 95%. interpretive naturalist notified. Anesthesia came and turned off epidural around 1000. Pt's abdomen is soft and does not appear to be distended. After MD came to assess, 500cc LR bolus was given. Pt's BP came up to 96/55 however she was crying in 10/10 pain. 1x dose of IV dilaudid given per MAR. Will continue to monitor. Nursing Note:
[2023-05-03 15:44] LABS: Abs Immature Grans 0.01 10^3/uL (0.0-0.06); Absolute Basophil Count 0.01 10^3/uL (0.0-0.2); Absolute Eosinophil Count 0.01 10^3/uL (0.0-0.7); Absolute Lymphocyte Count 0.62 10^3/uL (1.2-3.4); Absolute Monocyte Count 0.25 10^3/uL (0.1-0.8); Absolute Neutrophil Count 4.07 10^3/uL (1.2-6.7); Basophils % 0.2; Eosinophils % 0.2; HCT 33.7 % (36.0-46.0); HGB 11.4 g/dL (11.2-15.7); Immature Grans % 0.2; Lymphocytes % 12.5; MCH 30.7 pg (27.0-33.0); MCHC 33.8 % (32.0-36.0); MCV 91 fL (80-95); MPV 10.5 fL (8.0-11.0); Neutrophils % 81.9; Platelet Count 303 10^3/uL (130-400); RBC 3.71 10^6/uL (3.93-5.22); RDW 12.7 % (11.7-14.6); RDW-SD 42.3 fL; WBC 4.97 10^3/uL (4.4-10.8)
[2023-05-03 15:50] LABS: Source Nasal/Nares
--- NOTE | 2023-05-03 16:01 | W.PM.PROGNOT ---
Date of Service Date of service: 05/03/23 Time of Service: 16:01 Assessment and Plan Assessment and plan (1) History of colon resection: Assessment and plan: Patient is POD #2 from open sigmoid resection with anastamosis. Abdomen is soft. NO peritoneal findings repeat labs are reassuring Hypotension- suspect combination of epidural (vasodilatation), vagal response to large liquid BM and metoprolol and HCTZ. BP is responding to fluids Fevers- NOt entirely sure why she is having fevers. Still on antibiotics. Will stop antibiotics CXR is normal Give one more liter fluid bolus Check for C.Diff Order Hydromorphone for pain as epidural has been stopped Ativan for anxiety (2) Fever: Status: Acute Qualifiers: Fever type: unspecified Qualified Code(s): R50.9 - Fever, unspecified (3) Hypotension: Status: Acute Qualifiers: Hypotension type: other hypotension type Qualified Code(s): I95.89 - Other hypotension Subjective Subjective Interval history since last seen: Went up to check on Letissia again. Her BP has responded nicely to fluids. It is up to systolic of 90's. Continues to have fevers. Patient is in a lot of pain. 1 mg of Dilauded given. NO ativan yet. She had a large liquid BM but is not passing any flatus. Pain is moving around. Mostly located in the epigastric area and the LLQ. CXR showed no effusions of consolidation Exam Const General: anxious Nutritional Appearance: average body habitus Orientation: alert and oriented x3 HENMT Head: normocephalic and atraumatic Resp Effort & Inspection: normal respiratory effort Auscultation: clear to auscultation bilaterally GI Inspection: other (JHONY dressing is intact) Palpation: soft and tender (LLQ and along the incision, no guarding and no rebound) Objective Last Vital Signs Temp 102.2 F H 05/03/23 14:30 Pulse 103 H 05/03/23 14:21 Resp 20 05/03/23 14:21 BP 96/67 L 05/03/23 14:21 Pulse Ox 98 05/03/23 14:21 Laboratory Results - last 24 hr 05/03/23 05/03/23 05/03/23 06:00 14:25 15:35 WBC 7.76 4.97 RBC 3.30 L 3.71 L Hgb 10.1 L 11.4 Hct 30.1 L 33.7 L MCV 91 91 MCH 30.6 30.7 MCHC 33.6 33.8 RDW 12.7 12.7 Plt Count 297 303 MPV 10.9 10.5 Immature Gran % 0.3 0.2 Neutrophils % 80.6 81.9 Lymphocytes % 12.6 12.5 Monocytes % 6.3 5.0 Eosinophils % 0.1 0.2 Basophils % 0.1 0.2 Nucleated RBC % 0.0 0.0 Absolute Neutrophils 6.25 4.07 Absolute Lymphocytes 0.98 L 0.62 L Absolute Monocytes 0.49 0.25 Absolute Eosinophils 0.01 0.01 Absolute Basophils 0.01 0.01 Sodium 142 Potassium 3.4 L Chloride 105 Carbon Dioxide 27.5 Anion Gap 9.5 BUN 10 Creatinine 1.1 H Est GFR (CKD-EPI 2020) 60.08 Glucose 118 H Calcium 8.7 COVID-19 Source Nasal/Nares Time Spent with Patient Time Spent with Patient: 25-34 minutes Time was spent: counseling the patient
[2023-05-03 16:21] LABS: COVID-19 PCR Negative (Negative)
[2023-05-03] MEDS: HYDROmorphone 2 MG/ML SYR 0.5 MG IVP ×2 (16:30→21:46)
--- NOTE | 2023-05-03 16:40 | PGE_ITS ---
Date of Service Date of service: 05/03/23 Time of Service: 16:40 Assessment and Plan Assessment and plan (1) Hypotension: Status: Acute Assessment and plan: I was able to see Omaira twice today, and her exam remains consistent into this afternoon. Obviously, her fevers are troubling, but the white blood cell count remains within normal limits. Furthermore, the hypotension has improved since the discontinuation of the epidural, and she has responded appropriately to some fluid bolus. Obviously, with a new anastomosis, the concern for anastomotic leak here is quite high, however her exam is not at all consistent with what I would expect for somebody with a fresh colorectal anastomosis. Similarly, I think other intra-abdominal complications would result in more abdominal distention, tenderness, or other more obvious physical exam findings. For now, I think supportive measures and the most appropriate treatment plan. Will repeat the white blood cell count and add a CRP on for tomorrow. I think drug fever is also a possibility here, and I suspect that Zosyn would be the most likely culprit. That has been stopped today, and we can see how she responds over the next few hours. Qualifiers: Hypotension type: other hypotension type Qualified Code(s): I95.89 - Other hypotension Subjective Subjective Interval history since last seen: Omaira has had a rough day today, with ongoing fevers, and some nausea and vomiting that developed this afternoon. Currently, she has no nausea after her recent episode of emesis. Interestingly, she does have a little sense of appetite, and a desire to eat. She has had some increased pain across the lower part of her abdomen since the epidural has been shut off. Exam GI Other: Her abdomen is soft, and not distended. She does not guard. She does have some tenderness, little more on the left side than on the right side. The mi dressing is clean and dry. Objective Last Vital Signs Temp 102.2 F H 05/03/23 14:30 Pulse 103 H 05/03/23 14:21 Resp 20 05/03/23 14:21 BP 96/67 L 05/03/23 14:21 Pulse Ox 98 05/03/23 14:21 Laboratory Results - last 24 hr 05/03/23 05/03/23 05/03/23 06:00 14:25 15:35 WBC 7.76 4.97 RBC 3.30 L 3.71 L Hgb 10.1 L 11.4 Hct 30.1 L 33.7 L MCV 91 91 MCH 30.6 30.7 MCHC 33.6 33.8 RDW 12.7 12.7 Plt Count 297 303 MPV 10.9 10.5 Immature Gran % 0.3 0.2 Neutrophils % 80.6 81.9 Lymphocytes % 12.6 12.5 Monocytes % 6.3 5.0 Eosinophils % 0.1 0.2 Basophils % 0.1 0.2 Nucleated RBC % 0.0 0.0 Absolute Neutrophils 6.25 4.07 Absolute Lymphocytes 0.98 L 0.62 L Absolute Monocytes 0.49 0.25 Absolute Eosinophils 0.01 0.01 Absolute Basophils 0.01 0.01 Sodium 142 Potassium 3.4 L Chloride 105 Carbon Dioxide 27.5 Anion Gap 9.5 BUN 10 Creatinine 1.1 H Est GFR (CKD-EPI 2020) 60.08 Glucose 118 H Calcium 8.7 COVID-19 Source Nasal/Nares SARS-CoV-2 (PCR) Negative Time Spent with Patient Time Spent with Patient: >50 minutes Time was spent: preparing to see the patient(eg.review tests), referring, communicating with other health landcare facilitator, indepentently interpreting results, counseling the patient and care coordination
[2023-05-03] MEDS: Lactated Ringers 500 ML 1000 ML IV (16:51)
[2023-05-03] MEDS: Simethicone 80 MG CHEW PO (19:32)
[2023-05-03] MEDS: Lactated Ringers 1,000 ML 125 ML IV (20:38)
[2023-05-03] MEDS: Mirtazapine 15 MG TAB PO (21:29)
[2023-05-03] MEDS: Potassium Chloride 20 MEQ TABCR 40 MEQ PO (21:29)
[2023-05-03] MEDS: Melatonin 3 MG TAB PO (21:29)
[2023-05-03] MEDS: Pantoprazole 40 MG VIAL IVP (21:30)
[2023-05-04] VITALS (154 sets, daily range): BP systolic 75–110; BP diastolic 27–77; PULSE 59–141; RESP 12–39; TEMP 37–39.4; O2SAT 79–98; BMI 33.9
[2023-05-04] MEDS: Ketorolac 15 MG/ML VIAL IVP ×2 (01:19→08:00)
[2023-05-04] MEDS: HYDROmorphone 2 MG/ML SYR 0.5 MG IVP ×3 (03:05→23:13)
--- NOTE | 2023-05-04 03:30 | NUR.NOTE ---
assisted oob to commode for moderate soft brown bm on commode. assisted back to bed and given 0.5 hydromorphone for discomfort. Ice to incisional area replaced. resting more comfortable now
[2023-05-04 04:13] LABS: C Diff PCR Negative (Negative)
[2023-05-04] MEDS: Lactated Ringers 1,000 ML 125 ML IV ×3 (04:35→14:35)
[2023-05-04] MEDS: ACETAMINOPHEN 1,000 MG/100 ML BTL 400 MG IVPB ×2 (04:47→23:40)
[2023-05-04] MEDS: Fenofibrate, Micronized 145 MG TAB PO (08:28)
[2023-05-04 08:57] LABS: BUN 19 mg/dL (7-18); CO2 24.8 mmol/L (21.0-32.0); CREATININE 1.6 mg/dL (0.55-1.02); Calcium 9.2 mg/dL (8.5-10.1); Estimated GFR 38.33 (mL/min/1.73m2); Glucose 97 mg/dL (74-106); Magnesium 1.2 mg/dL (1.8-2.4); Sodium 139 mmol/L (136-145)
[2023-05-04] MEDS: Potassium Chloride 20 MEQ TABCR (09:16)
--- NOTE | 2023-05-04 09:35 | PDOC.CMPRO ---
Date of service: 05/04/23 Time of Service: 09:35 Care Management Progress Note Progress Note Text Progress Note Text: S/O: Omaira went to the OR today for re exploration, after not showing much improvement over the last 24H, after being moved into the ICU. She was in the OR most of the day, therefore CM did not meet with her today. CM will continue to follow. A: Omaira is a 53 year old female admitted to [facility] on 05/01/23 for acute on chronic diverticulitis. P: Anticipate Omaira will return home once medically cleared by . Her will drive her home via private vehicle. She will follow up with surgical services, her PCP and discharge plan of care. CM will continue to follow.
[2023-05-04 09:36] LABS: Anion Gap 14.2 mmol/L (3-11); Chloride 100 mmol/L (98-107)
[2023-05-04 09:37] LABS: C-Reactive Protein > 25.00 mg/dL (0.0-0.3)
[2023-05-04 09:39] LABS: Absolute Neutrophil Count 4.93 10^3/uL (1.2-6.7); Bands % 9; HCT 28.1 % (36.0-46.0); HGB 9.6 g/dL (11.2-15.7); MCHC 34.2 % (32.0-36.0); MCV 91 fL (80-95); Platelet Count 266 10^3/uL (130-400); RDW 13.1 % (11.7-14.6); RDW-SD 42.6 fL; WBC 5.42 10^3/uL (4.4-10.8)
[2023-05-04 09:40] LABS: Absolute Lymphocyte Count 0.33 10^3/uL (1.2-3.4); Absolute Monocyte Count 0.16 10^3/uL (0.1-0.8); Atypical Lymphocytes % 1; Diff Comment Manual Differential
[2023-05-04 10:03] LABS: Lactate 2.2 mmol/L (0.6-1.4)
--- NOTE | 2023-05-04 10:31 | W.PM.PROGNOT ---
Date of Service Date of service: 05/04/23 Time of Service: 10:31 Assessment and Plan Assessment and plan (1) Hypotension: Status: Acute Assessment and plan: I was able to see Omaira twice this morning. Her exam is certainly involved since yesterday. Interestingly she has only a mild increase in her serum creatinine, and a slightly elevated serum lactate today. Otherwise her labs are pretty normal. Regardless, she remains febrile, with some increasing tachypnea today, and now abdominal distention. In that regards, I think the safest thing to do is proceed to the operating room for reexploration. I talked with Omaira and her family regarding different diagnostic options, and the risks and the benefits of all of those choices. Obviously, there is some concern with her hypotension associated with the anesthesia. At this point, her mean arterial blood pressure has been greater than 65 through most of the morning, and I think this is probably the safest time to move to the operating room. I did explain that she might need some vasoactive support during the procedure, but in the broad context, I think ruling out some type of intra-abdominal catastrophe is the safest plan for her since she has not seem to improve at all over the past 24 hours. So long as her hemodynamics permit, we will proceed with a diagnostic laparoscopy, and possible flexible sigmoidoscopy to interrogate the anastomosis. I explained that the conduct of the operation will largely depend upon what is found. There is certainly a high likelihood that she might leave the operating room with some type of a diverting ostomy. I think she has a good understanding of that, and is certainly willing to proceed at this point. For now, we are making arrangements to proceed to the operating room as soon as we can. I will start some broad-spectrum antibiotics in the case that this is intra-abdominal sepsis as I think the likelihood of drug fever has been eliminated at this point. Qualifiers: Hypotension type: other hypotension type Qualified Code(s): I95.89 - Other hypotension Subjective Subjective Interval history since last seen: Omaira feels a little more tired today compared to yesterday. She has no appetite. Her abdominal pain is about the same. She did have a soft, semiformed bowel movement overnight, but she feels like she is more bloated. Exam GI Other: Her abdomen is more distended and tympanitic today. Tenderness is about the same. Dressings are all clean. There is no erythema in the surrounding tissues. She guards a little bit across the lower abdomen Objective Last Vital Signs Temp 102.0 F H 05/04/23 04:55 Pulse 116 H 05/04/23 04:55 Resp 39 H 05/04/23 04:55 BP 91/27 L 05/04/23 04:55 Pulse Ox 94 05/04/23 04:55 Laboratory Results - last 24 hr 05/03/23 05/03/23 05/04/23 14:25 15:35 03:00 WBC 4.97 RBC 3.71 L Hgb 11.4 Hct 33.7 L MCV 91 MCH 30.7 MCHC 33.8 RDW 12.7 Plt Count 303 MPV 10.5 Immature Gran % 0.2 Neutrophils % 81.9 Band Neutrophils % Lymphocytes % 12.5 Atypical Lymphs % Monocytes % 5.0 Eosinophils % 0.2 Basophils % 0.2 Nucleated RBC % 0.0 Absolute Neutrophils 4.07 Absolute Lymphocytes 0.62 L Absolute Monocytes 0.25 Absolute Eosinophils 0.01 Absolute Basophils 0.01 VBG Lactate Sodium Potassium Chloride Carbon Dioxide Anion Gap BUN Creatinine Est GFR (CKD-EPI 2020) Glucose Calcium Magnesium C-Reactive Protein Stl C.difficile Tox PCR Negative COVID-19 Source Nasal/Nares SARS-CoV-2 (PCR) Negative 05/04/23 05/04/23 06:00 09:50 WBC 5.42 RBC 3.10 L Hgb 9.6 L Hct 28.1 L MCV 91 MCH 31.0 MCHC 34.2 RDW 13.1 Plt Count 266 MPV 11.0 Immature Gran % 0.0 Neutrophils % 82.0 Band Neutrophils % 9 Lymphocytes % 5.0 Atypical Lymphs % 1 Monocytes % 3.0 Eosinophils % 0.0 Basophils % 0.0 Nucleated RBC % 0.0 Absolute Neutrophils 4.93 Absolute Lymphocytes 0.33 L Absolute Monocytes 0.16 Absolute Eosinophils 0.00 Absolute Basophils 0.00 VBG Lactate 2.2 H* Sodium 139 Potassium 3.0 L Chloride 100 Carbon Dioxide 24.8 Anion Gap 14.2 H BUN 19 H Creatinine 1.6 H Est GFR (CKD-EPI 2020) 38.33 Glucose 97 Calcium 9.2 Magnesium 1.2 L C-Reactive Protein > 25.00 H Stl C.difficile Tox PCR COVID-19 Source SARS-CoV-2 (PCR) Time Spent with Patient Time Spent with Patient: >50 minutes Time was spent: preparing to see the patient(eg.review tests), ordering medications,tests, procedures, referring, communicating with other health healthcare customer service, indepentently interpreting results, counseling the patient and care coordination
--- NOTE | 2023-05-04 10:47 | ANES.PREOP_ITS ---
General Info Date of Service Date Performed: 05/04/23 Height: 5 ft 3 in Weight: 86.8 kg Body Mass Index (BMI): 33.9 Surgical Procedure: Operation Date: 05/02/23 08:50 Proposed Procedure Side Surgeon p Exploratory Laparotomy, Sigmoid resection, Colostomy Sloane Rosenberg MD Actual Procedure Side Surgeon p Laparotomy with Sigmoid Resection Left Sloane Rosenberg MD Pre-Op Diagnosis Post-Op Diagnosis Acute on Chronic Diverticulitis Acute on Chronic Diverticulitis Operation Date: 05/04/23 10:40 Proposed Procedure Side Surgeon p Exploratory Laparoscopy, Possible Flex Sigmoid, Possible Open Jason Martinez MD Meds Allergies and Home Medications Allergies Allergy/AdvReac Type Severity Reaction Status Date / Time losartan Allergy Intermediate angioedema Verified 04/20/23 11:57 trazodone AdvReac Intermediate Headache Verified 04/20/23 11:57 codeine [Codeine] AdvReac heart Verified 04/20/23 11:57 racing lidocaine AdvReac heart Verified 04/20/23 11:57 racing Home Medication Medication Instructions Recorded omeprazole magnesium 20 mg 20 mg PO DAILY #90 tabs 08/03/22 tablet,delayed release (Prilosec OTC) atorvastatin 40 mg tablet 40 mg PO DAILY #90 tabs 08/22/22 fenofibrate nanocrystallized 145 145 mg PO DAILY #90 tabs 08/22/22 mg tablet (Tricor) hydrochlorothiazide 12.5 mg tablet 12.5 mg PO DAILY #90 tabs 12/15/22 metoprolol succinate 50 mg 50 mg PO DAILY #90 tabs 12/15/22 tablet,extended release 24 hr conj estrogen-medroxyprogesterone 1 tab PO DAILY #84 tabs 04/03/23 0.3 mg-1.5 mg tablet (Prempro) magnesium 250 mg tablet 250 mg PO DAILY hypomagnesemia #30 04/15/23 tabs L. acidophilus,casei,rhamnosus 50 1 cap PO DAILY History of C. 04/17/23 billion cell capsule,delayed difficile #30 caps release (Bio-K plus) levofloxacin 750 mg tablet 750 mg PO DAILY 7 days #14 tabs 04/17/23 inulin 2 gram chewable tablet 4 g PO DAILY 04/20/23 (Fiber Gummies) mirtazapine 15 mg tablet (Remeron) 15 mg PO HS 05/01/23 Current Visit Medications: Current Medications Generic Name Dose Route Start Last Admin Trade Name Freq PRN Reason Stop Dose Admin Albuterol Sulfate 2.5 mg 05/01/23 09:51 Albuterol 2.5 Mg/3 Ml Inh Soln Vial UPD Q4H PRN PRN Alprazolam 0.25 mg 05/01/23 21:00 05/02/23 21:07 Alprazolam 0.25 Mg Tab PO 0.25 mg HS PRN PRN Administration Alvimopan 12 mg 05/02/23 20:00 05/04/23 08:28 Alvimopan 12 Mg Cap PO 05/09/23 08:31 12 mg BID HUSSAIN Administration Enoxaparin Sodium 40 mg 05/01/23 10:00 05/03/23 10:09 Enoxaparin 40 Mg/0.4 Ml Syr SC 40 mg Q24H HUSSAIN Administration Ephedrine Sulfate 5 mg 05/02/23 10:52 Ephedrine 50 Mg/Ml Vial IVP DIRECTED PRN Fenofibrate 145 mg 05/02/23 08:30 05/04/23 08:28 Fenofibrate, Micronized 145 Mg Tab PO 145 mg DAILY HUSSAIN Administration Fentanyl/Ropivacaine 200 ml 05/02/23 11:00 05/03/23 08:15 Fentanyl/Ropivacaine 2 Mcg/Ml And 0.1% 200 Ml Cadd Cassette EP 200 ml DIRECTED HUSSAIN Administration Hydrochlorothiazide 12.5 mg 05/02/23 08:30 05/04/23 09:17 Hydrochlorothiazide 12.5 Mg Tab PO Not Given DAILY HUSSAIN Hydromorphone HCl 0.5 mg 05/03/23 13:54 05/04/23 09:00 Hydromorphone 2 Mg/Ml Syr IVP 0.5 mg Q6H PRN PRN Administration Acetaminophen 1,000 mg in 100 mls @ 400 mls/hr 05/01/23 10:00 05/04/23 05:05 Ofirmev IVPB Infused Q8H PRN PRN Infusion Abdominal Pain Nalbuphine HCl 5 mg/ Sodium 50.5 mls @ 100 mls/hr 05/02/23 10:52 Chloride IVPB Q3H PRN PRN Pruritis Ringer's Solution 1,000 mls @ 125 mls/hr 05/03/23 15:30 05/04/23 04:35 IV 125 mls/hr INFUSION HSUSAIN Administration Vancomycin/PEG/NADA/Lysine/Water 2 gm in 400 mls @ 200 mls/hr 05/04/23 10:33 Vancocin Injection IV 05/04/23 12:32 NOW STA Piperacillin Sod/Tazobactam 100 mls @ 200 mls/hr 05/04/23 11:00 Sod 4.5 gm/ Sodium Chloride IVPB 05/04/23 11:29 NOW ONE IV Miscellaneous Supplies 1 each 05/01/23 10:00 Iv Access IV DIRECTED HUSSAIN Ketorolac Tromethamine 15 mg 05/01/23 19:49 05/04/23 08:00 Ketorolac 15 Mg/Ml Vial IVP 05/06/23 19:48 15 mg Q6H PRN PRN Administration Lorazepam 0.5 mg 05/03/23 14:12 Lorazepam 2 Mg/Ml Vial IVP Q3H PRN PRN Melatonin 3 mg 05/01/23 22:00 05/03/23 21:29 Melatonin 3 Mg Tab PO 3 mg HS HUSSAIN Administration Metoprolol Succinate 50 mg 05/02/23 08:30 05/04/23 09:17 Metoprolol Cr 50 Mg Tabcr PO Not Given DAILY HUSSAIN Mirtazapine 15 mg 05/02/23 22:00 05/03/23 21:29 Mirtazapine 15 Mg Tab PO 15 mg HS HUSSAIN Administration Naloxone HCl 0 mg 05/02/23 10:52 Naloxone 0.4 Mg/Ml Vial IVP DIRECTED PRN Ondansetron HCl 4 mg 05/01/23 09:51 05/03/23 15:11 Ondansetron 4 Mg/2 Ml Vial IVP 4 mg Q4H PRN PRN Administration Pantoprazole Sodium 40 mg 05/03/23 21:00 05/03/23 21:30 Pantoprazole 40 Mg Vial IVP 40 mg HS HUSSAIN Administration Pt's Own Conj Estrog 1 each 05/02/23 08:30 05/03/23 07:45 -Medroxyprogest [ PO 1 each Prempro] 0.3-1.5 Mg DAILY HUSSAIN Administration Tab Simethicone 80 mg 05/01/23 09:51 05/03/23 19:32 Simethicone 80 Mg Chew PO 80 mg Q4H PRN PRN Administration Sodium Chloride 0 ml 05/01/23 09:51 05/03/23 21:29 Normal Saline Flush 10 Ml Syr IVP 20 ml PRN PRN Administration Sodium Chloride 0 ml 05/01/23 09:51 Normal Saline 10 Ml Vial IJ DIRECTED PRN PFSH Active Problems Active Problems: Problem Status Onset Code Hypotension I95.9 Fever R50.9 Smoker F17.200 Diverticulitis K57.92 Abdominal pain R10.9 Diverticulitis large intestine K57.32 Hyperplastic colon polyp ~01/17/23 K63.5 Diverticulosis K57.90 Chronic constipation K59.09 Adjustment disorder with anxious mood F43.22 Essential hypertension I10 Hyperlipidemia LDL goal <130 E78.5 C. difficile colitis A04.72 Left lower quadrant pain R10.32 Depression F32.9 Dizziness R42 Hot flashes R23.2 Tobacco abuse Z72.0 Leg pain, bilateral M79.604, M79.605 Upper respiratory infection J06.9 Ovarian mass, right N83.9 Medical History Medical History (Updated 05/03/23 @ 14:07 by Sloane Rosenberg MD) Acute diverticulitis Diverticulitis Tonsillar hypertrophy Peritonsillar abscess Surgical History Surgical History (Updated 05/03/23 @ 09:10 by Sybil Benitez) History of colon resection (~04/2023) S/P laparoscopic assisted vaginal hysterectomy (LAVH) super-cervical S/P tonsillectomy History of colonoscopy (~12/2022) Ligation of fallopian tube HYSTERECTOMY Supracervical Tobacco Smoking/Tobacco Use Status: Current every day Tobacco Type: cigarettes Smoking cigarettes per day: 7 Passive smoking exposure: Yes Second hand exposure: Yes Alcohol Alcohol Intake: current Alcohol intake frequency: a few times a month Alcohol type: beer Substance Use Substance use type: does not use Vital Signs and Lab Results Vital Signs Most Recent Vital Signs in EMR: Most Recent Vital Signs Temp Pulse Resp BP Pulse Ox 38.9 C H 116 H 39 H 91/27 L 94 05/04/23 04:55 05/04/23 04:55 05/04/23 04:55 05/04/23 04:55 05/04/23 04:55 Lab Results 05/04/23 06:00 05/04/23 06:00 Blood Type / Crossmatch: 2 Patient ABO/Rh O Positive 05/01/23 Antibody Screen NEGATIVE 05/01/23 Complete Blood Count: 2 White Blood Count 5.42 10^3/uL (4.4-10.8) 05/04/23 06:00 Red Blood Count 3.10 10^6/uL (3.93-5.22) L 05/04/23 06:00 Hemoglobin 9.6 g/dL (11.2-15.7) L 05/04/23 06:00 Hematocrit 28.1 % (36.0-46.0) L 05/04/23 06:00 Platelet Count 266 10^3/uL (130-400) 05/04/23 06:00 Venous Blood Lactate 2.2 mmol/L (0.6-1.4) H* 05/04/23 09:50 Complete Metabolic Panel: 2 Sodium 139 mmol/L (136-145) 05/04/23 06:00 Potassium 3.0 mmol/L (3.5-5.1) L 05/04/23 06:00 Chloride 100 mmol/L (98-107) 05/04/23 06:00 Carbon Dioxide 24.8 mmol/L (21.0-32.0) 05/04/23 06:00 BUN 19 mg/dL (7-18) H 05/04/23 06:00 Creatinine 1.6 mg/dL (0.55-1.02) H 05/04/23 06:00 Est GFR (CKD-EPI 2020) 38.33 (mL/min/1.73m2) 05/04/23 06:00 Magnesium 1.2 mg/dL (1.8-2.4) L 05/04/23 06:00 Calcium 9.2 mg/dL (8.5-10.1) 05/04/23 06:00 Albumin 3.5 g/dL (3.4-5.0) 05/01/23 10:37 Glucose 97 mg/dL (74-106) 05/04/23 06:00 C-Reactive Protein > 25.00 mg/dL (0.0-0.3) H 05/04/23 06:00 Liver Function Panel: 2 Alanine Aminotransferase (ALT/SGPT) 17 U/L (14-59) 05/01/23 10: 37 Aspartate Amino Transf (AST/SGOT) 11 U/L (15-37) L 05/01/23 10: 37 Coagulation Panel: 2 No Data to Display Cardiac Panel: 2 No Data to Display Arterial Blood Gas: 2 No Data to Display Venous Blood Gas: 2 No Data to Display Pancreas Panel: 2 Lipase 36 U/L (16-77) 04/15/23 17:19 Thyroid Panel: 2 No Data to Display Infectious Disease: 2 Coronavirus (COVID-19)(PCR) Negative (Negative) 05/03/23 14:25 Coronavirus 2019 Source Nasal/Nares 05/03/23 14:25 Blood Cultures: 2 No Data to Display Toxicology Panel: 2 No Data to Display Panel: 2 No Data to Display Anesthesia Assessment and Plan Anesthesia History Personal History: No History of Anesthesia Complications Family History: No Family History of Anesthesia Complications Exercise Tolerance Exercise Tolerance: Metabolic Equivalents>4 Pertinent Negatives Pertinent Negatives: No Symptoms of GERD Cardiac & Pulmonary Exam Cardiac Exam: Normal S1/S2 Heart Sounds Pulmonary Exam: Clear Bilateral Breath Sounds Implantable Cardiac Device Does patient have a Pacemaker or an ICD?: No Airway Exam Known Difficult Airway: No Mallampati Class: 2 Mouth Opening: Normal (> 3cm) Thyromental Distance: Greater than 3 cm Neck Range of Motion: Full ROM Neck Circumference: Normal Teeth Condition: Removable Dentures/Plates Upper ASA Classification ASA Score: ASA 3 Emergency Case?: Yes NPO Status NPO Status: NPO Clears >2 hours, Solids >8 hours Status Status: Not Relevant due to Medical History Anesthesia Plan Resuscitation Status: Full Code Anesthesia Technique: General Anesthesia Airway Planned: Endotracheal Tube Monitors Used: Standard Monitors, Arterial Line, Central Line, SedLine and POCUS
[2023-05-04] MEDS: Bupivacaine 0.25% Pres-Free 30 ML VIAL ×2 (12:25→14:50)
[2023-05-04] MEDS: PIPERACILLIN/TAZO 4.5 GM in Normal Saline 100 ML IVPB (12:43)
[2023-05-04] MEDS: VANCOMYCIN/WATER (PEG) 2 GM/400 ML BAG IV (14:05)
--- NOTE | 2023-05-04 14:20 | W.ANESVAS ---
Central Venous Line Placement Date Performed: 05/04/23 Procedure Time: 13:00 Procedure Location: Operating Room Requesting Provider: Jason Martinez Standard Monitors Applied: ECG, Blood Pressure, SpO2, ETCO2 and See EMR for corresponding vital signs Pt. Position: Supine Timeout Performed: Yes Sedation Given (Indicate Dose Given): Other: Medication/Route/Dose:: GETA Patient Mental Status: Performed under general anesthesia Sterility: Hand Hygiene, Surgical Cap, Surgical Mask, Sterile Gloves, Sterile Drape/Sheet, Sterile Gown, Eye Protection and Chlorhexidine Laterality: Right Insertion Site: Internal Jugular (IJ) Central Line Type: 7 [place] Insertion Procedure: Vessel accessed with needle, Guidewire placed with ease, Extension tubing fills with blood, then empties easily with gravity, Dermatotomy (skin nicanor) made with scalpel, Dilator placed without resistance, Introducer/Catheter placed without resistance, Guidewire removed, Claves placed, blood withdrawn, ports flushed and clamped and Other (Ultrasound image of wire and transduced catheter) Dressing: Tegaderm Applied, BioPatch and Sutured in Place Catheter Depth at Skin (cm): 16 Placement Confirmation: Urgently Used, all ports flush with venous blood return noted Ultrasound: Sterile probe cover and gel used Ultrasound Image Saved?: Yes Number of Attempts (See previous attempts in note section): 1 Procedure Tolerated: No Complications and Patient tolerated well Procedure Outcome: Successful Performed By: Mansoor Cabrera
--- NOTE | 2023-05-04 14:25 | W.ANESVAS ---
Arterial Line Placement Date Performed: 05/04/23 Procedure Time: 12:26 Procedure Location: Operating Room Requesting Provider: Jason Martinez Timeout Performed: Yes Sedation Given (Indicate Dose Given): Other: Medication/Route/Dose:: GETA Patient Mental Status: Performed under general anesthesia Sterility: Hand Hygiene, Surgical Cap, Surgical Mask, Sterile Gloves, Sterile Drape/Sheet, Eye Protection and Chlorhexidine Laterality: Left Insertion Site: Brachial Arterial Line Catheter: 20G Arrow Arterial Line Procedure: Vessel accessed with catheter over needle, Guidewire placed with ease and Guidewire removed Dressing: Tegaderm Applied, Steristrips Used and Mastisol Used Ultrasound: Sterile probe cover and gel used Ultrasound Image Saved?: Yes Number of Attempts (See previous attempts in note section): 3 Procedure Tolerated: No Complications and Patient tolerated well Procedure Outcome: Successful Performed By: Kaley Mann
[2023-05-04 14:39] LABS: BE -4 mmol/L (-2-3); HCO3 22 mmol/L (22-26); pCO2 47 mmHg (35-45); pH 7.29 (7.35-7.45); pO2 148 mmHg (80-105); sO2 99 % (95-98); tCO2 21 mmol/L (23-27)
[2023-05-04] MEDS: Bupivacaine LIPOSOME/PF 133 MG/10 ML VIAL IJ (14:51)
--- NOTE | 2023-05-04 17:47 | W.ANESNEU ---
Epidural/Spinal Daily Note Date Performed: 05/04/23 Assessment Time: 17:47 Patient Location: Intensive Care Unit Catheter Type in Place: Epidural Catheter Dressing Assessment: Dressing intact with good adherence Catheter Assessment: Catheter Labeled and Intact and Functioning Previous Catheter Depth Noted (cm): 11 Current Catheter Depth (cm): 11 Current Medication Infusion: Ropivacaine 0.1% with Fentanyl 2mcg/ml Current Maintenance Infusion Rate (ml/hour): 8 Current PCEA Bolus Dose (ml): 5 Current Pain Score (0-10): 0 Medication Infusion Stopped, Catheter Removal Planned: No New Bolus Given or Change in Infusion Made: No Daily Management Comments: Post-op pain management for return to OR with open laparotomy Completed By: Mansoor Cabrera
--- NOTE | 2023-05-04 17:53 | DI.RAD_ITS ---
Exam(s) XR PORTABLE CHEST AP EXAM: XR PORTABLE CHEST AP CLINICAL HISTORY: ET tube placement and Central Line Placement TECHNIQUE: 2D digital imaging was performed. COMPARISON: CR XR PORTABLE CHEST AP from 05/03/2023 FINDINGS: Exam extremely limited by multiple leads coiled over the chest. A central line has been inserted via the right internal jugular. The tip lies in the lower SVC. Endotracheal tube has been inserted which lies at the level of the aortic arch. A nasogastric tube p rojects beneath the diaphragm, in the expected location of the stomach. LUNGS: Lungs not well inflated.. No pneumothorax.. HEART: Normal size. AORTA: Normal diameter. BONES: Unremarkable for age. Soft tissues: Unremarkable. IMPRESSION: Satisfactory placement of central line, endotracheal tube and nasogastric tube. DATA REPOSITORY: RADIATION DOSE DELIVERED:
--- NOTE | 2023-05-04 18:35 | ROE_ITS ---
Date of service: 05/04/23 Time of Service: 18:35 Operative Note Operative Note DATE OF PROCEDURE: 05/02/23 PRE-OP DIAGNOSIS: Septic shock POST-OP DIAGNOSIS: other (Septic shock from anastomotic leak colorectal) PROCEDURE: Exploratory laparoscopy, reopening of recent laparotomy, repair of colorectal anastomotic leak, flexible sigmoidoscopy, creation of diverting ileostomy SURGEON: Jason Martinez RESOURCE CONSERVATIONIST: Natalie Paul ANESTHESIA TYPE: General LMA/ETT Refer to Anesthesia Record ESTIMATED BLOOD LOSS: 200 PATHOLOGY: other COMPLICATIONS: Other (Ileostomy revision) Patient was transported to: PACU Patient's condition: stable Indications: Jeri is 53 years old. She has been suffering from refractory sigmoid diverticulitis despite extensive antibiotic therapy diet management. She was actually scheduled for elective sigmoid colectomy, when she developed another recurrent bout of diverticulitis. She went to the operating room on Monday for an open sigmoid colectomy with a primary colorectal anastomosis. On postoperative day #1, she developed fevers of uncertain etiology. White blood cell count was normal, and her exam is reassuring. Subsequently, she developed some hypotension requiring fluid resuscitation, and over the subsequent night, she developed increasing abdominal distention with nausea and vomiting. We talked about the differential diagnosis, but most importantly, given the change in her hemodynamics and abdominal exam, it seems that abdominal sepsis was the most likely source, therefore we talked about the risks and benefits of abdominal exploration, and she consented for emergency surgery. Findings: Week from the colorectal anastomosis at the corner common enterotomy. Procedure Description: HD induction of general endotracheal anesthesia, and establishment of intra- arterial blood pressure monitoring, I assisted with placing the patient into lithotomy positioning. Great care was taken to ensure appropriate and safe positioning. I then prepped and draped the anterior abdominal wall. I anesthetized the left upper quadrant of the area Stanton's point, made a small skin incision, and accessed the peritoneal cavity with an optical viewing port. I establish pneumoperitoneum. There appeared to be some filmy adhesions down in the pelvis. Next, with the assistance of the 5 mm 30 degree laparoscope, I placed another 5 mm port in the right upper abdomen, and another 5 mm port in the right lower abdomen. With the assistance of Trendelenburg positioning, I began to explore the pelvis. Greater omentum was easily lysed from the simple adhesions and anterior abdominal wall, and retracted cephalad. This revealed some purulent fluid in the pelvis that seem consistent with stool. It appeared to me that this was most likely arising from anastomosis, or somewhere in the distal colon. I did not feel confident that I would be able to repair this laparoscopically. Therefore, I felt the safest thing to do is to proceed with an open operation. The ports were removed under the vision of the laparoscope, and the midline jayla were all removed. Fascial closure was cut free, and I opened the length of the incision. I extended the incision slightly cephalad for better exposure. Next, I gently packed the pelvis with some clean gauze. I then retracted the transverse colon cephalad, and identified the small bowel mesentery at the ligament of Treitz. the entire length of the small intestines examined. There was fibrinous exudate over several areas, but all of the small intestine appeared viable, well-perfused, and without any evidence of clear pathology. There did appear to be some evidence of ileus. The appendix and cecum were normal and healthy appearing as well as the ascending and transverse colon. The left colon looked healthy and normal, and the dissected portion of the distal left colon mesentery also looked okay. I then unpacked the area of the anastomosis, and carefully examined it. it appeared to be a isoperistaltic [id number] stapled anastomosis, concordant with what was described by Dr. Rosenberg. The staple line of the proximal limb did have some area of denuded mucosa, but I believe this was secondary to the acute inflammation of the anastomotic leak combined with the mobilization and dissection of the area. The mucosa was healthy appearing and viable, as was the surrounding serosa and epiploic fat. Therefore, I imbricated this mucosa reinforcing the staple line. Next, I turned my attention to the common enterotomy and the stapled enteroenterostomy. Gross examination of the enteroenterostomy along the circumference seemed normal. The common enterotomy appeared to be closed with suture, and there was some nonviable tissue here that was difficult to clearly identify. Therefore, I broke scrub, and performed a flexible sigmoidoscopy under the direct vision to the sigmoidoscope, assisted with direct examination within the peritoneum. The proximal portion of the descending colon was gently occluded, and the rectum and colorectal anastomosis was insufflated. There was immediate leakage of air from the area of the common enterotomy. I rescrubbed, and dissected the common enterotomy a little bit more. There was a defect in the closure here. It was about 1 cm in length. The edge of it was necrotic and acutely inflamed. I debrided this sharply with Metzenbaum scissors back to healthy tissue. This required only a tiny bit of excision. My best guess is that this is more of a traction or tension problem, rather than ischemia of the anastomosis proper. The staple line of the distal segment of rectal was well away from this, and appeared unaffected. Given that a majority of the anastomosis appeared healthy and perfused, and that the area of leak was confined to what appeared to be a tension problem, I felt the safest course of action was to repair the site, rather than resect the entire anastomosis, which would have required further dissection down to the inflamed pelvic floor. Therefore, I gently reoriented the afferent portion of the colon and closed the enteroenterostomy in a transverse fashion with a running 3-0 PDS suture followed by imbricating interrupted 2-0 silk sutures. I was also able to pexy the afferent limb slightly medial and downward to help preserve more favorable orientation. Next, I irrigated the surgical field. Again, the anastomosis appeared well-perfused and generally very healthy. I repeated the flexible proctoscopy. The mucosa was pink and healthy. The closure was airtight. I was able to easily navigate the scope across the anastomosis without any di fficulty. There was no bleeding. I then be scrubbed once again. Because of Letissia's septic shock, I did think that a diverting stoma would be the safest plan to optimize chances of recovery. An ileostomy seem to be the best option based on her anatomy and body habitus. Therefore, I ran the length of the small intestine 1 more time to reorient everything. I identified an area of the dista l ileum that seem to be a suitable candidate for loop ileostomy I made a circular incision in the right lower quadrant. In the area of the previous 5 mm laparoscopy port. I dissected down to the fascia which I incised with a cruciate fashion. I tried to stay well lateral of the midline incision to minimize incisional complications. I then created a small defect in the mesentery of the distal ileum, and passed 1/4 inch [place] drain to help deliver it through the abdominal wall. Her abdominal wall is a little bit thick in this area, it was challenging to get the loop to sit appropriately. next, I irrigated the abdominal cavity. I placed 2 surgical drains in the area of the colorectal anastomosis. These were brought out through the other 5 mm laparoscopy ports. The small bowel was again returned to its normal anatomic position, and the greater omentum was draped over it. I began closing the midline fascia. [place] along, I reexamined the loop ileostomy. Unfortunately, it appeared ischemic. Tried reoriented several times. It was not twisted, but I believe there was tension on the mesentery. Therefore, I removed the midline suture, and delivered the ileostomy back into the peritoneal cavity. I then used a TYLER stapler to divide the loop, and I divided the mesentery of the small bowel parallel to the mesenteric blood vessels. This allowed me to bring up the 2 ends through the ileostomy site. These were easily delivered up to the anterior abdominal wall. There was more length, and they appeared better perfused. These were wrapped with warm moistened gauze. I then turned my attention back to the midline incision. Using looped 0 PDS suture, I closed the incision from the top and the bottom, and tied the suture in the middle. Given the peritoneal contamination, I felt leaving the skin open and planning for delayed primary skin closure would be a reasonable option. Therefore, the skin and subcutaneous tissues were copiously irrigated, a 4 inch Kerlix gauze was used to pack the subcutaneous tissues. Surgical drains were then fixed in place with skin stitches, and all of the sites were protected as I turned my attention back to the ileostomy. Again, he ends of the divided ileum appeared viable and well-perfused. I excised the staple lines with cautery, and I pexied the sides of the afferent and eferret limbs. The rest of the ileostomy was matured to the skin level with interrupted Vicryl stitches. Stoma device was applied. Gloves were changed, and the other sites were exposed, and dressed with ABD pads and drain sponges. Patient was then transferred back up to the intensive care unit for ongoing treatment.
[2023-05-04 18:54] LABS: HCT 34.3 % (36.0-46.0); HGB 11.9 g/dL (11.2-15.7); Lactate 2.4 mmol/L (0.6-1.4); MCH 31.5 pg (27.0-33.0); MCHC 34.7 % (32.0-36.0); MCV 91 fL (80-95); MPV 10.4 fL (8.0-11.0); Platelet Count 257 10^3/uL (130-400); RBC 3.78 10^6/uL (3.93-5.22); RDW 13.2 % (11.7-14.6); RDW-SD 43.4 fL; WBC 3.03 10^3/uL (4.4-10.8)
[2023-05-04 19:11] LABS: Anion Gap 10.7 mmol/L (3-11); BUN 26 mg/dL (7-18); CO2 24.3 mmol/L (21.0-32.0); CREATININE 1.6 mg/dL (0.55-1.02); Calcium 8.1 mg/dL (8.5-10.1); Chloride 100 mmol/L (98-107); Estimated GFR 38.33 (mL/min/1.73m2); Glucose 134 mg/dL (74-106); Magnesium 1.4 mg/dL (1.8-2.4); PHOSPHORUS 4.9 mg/dL (2.6-4.7); Potassium 3.4 mmol/L (3.5-5.1); Sodium 135 mmol/L (136-145)
[2023-05-04 19:27] LABS: C-Reactive Protein > 25.00 mg/dL (0.0-0.3)
[2023-05-04] MEDS: PROPOFOL 1,000 MG/100 ML BTL 41.8 MG IV (21:55)
[2023-05-04] MEDS: MAGNESIUM SULFATE 2 GM/50 ML BAG IVPB (22:08)
[2023-05-04] MEDS: POTASSIUM CHLORIDE 10 MEQ/100 ML BAG 100 MEQ IVPB ×2 (22:13→23:27)
[2023-05-04] MEDS: Pantoprazole 40 MG VIAL IVP (22:20)
[2023-05-04] MEDS: Normal Saline Flush 10 ML SYR IVP (22:21)
[2023-05-04] MEDS: Normal Saline Flush 10 ML SYR (22:36)
[2023-05-04 22:49] LABS: BE -5 mmol/L (-2-3); HCO3 19 mmol/L (22-26); pCO2 25 mmHg (35-45); pH 7.48 (7.35-7.45); pO2 66 mmHg (80-105); sO2 94 % (95-98); tCO2 17 mmol/L (23-27)
[2023-05-04 22:52] LABS: Site Right Radial
[2023-05-04 23:00] LABS: Lactate 2.3 mmol/L (0.6-1.4)
[2023-05-04] MEDS: PIPERACILLIN/TAZO 3.375 GM in Normal Saline 50 ML IVPB (23:02)
[2023-05-04] MEDS: PROPOFOL 1,000 MG/100 ML BTL 47 MG IV (23:27)
[2023-05-05] VITALS (39 sets, daily range): BP systolic 62–146; BP diastolic 51–88; PULSE 96–135; RESP 17–25; TEMP 38.8; O2SAT 93–98
[2023-05-05] MEDS: Lactated Ringers 500 ML IV (01:10)
[2023-05-05 01:34] LABS: HGB 11.7 g/dL (11.2-15.7); MCH 31.5 pg (27.0-33.0); MCHC 35.5 % (32.0-36.0); MCV 89 fL (80-95); MPV 10.8 fL (8.0-11.0); Platelet Count 233 10^3/uL (130-400); RBC 3.71 10^6/uL (3.93-5.22); RDW-SD 42.5 fL; WBC 3.09 10^3/uL (4.4-10.8)
[2023-05-05 01:38] LABS: Lactate 2.6 mmol/L (0.6-1.4)
[2023-05-05] MEDS: Hydrocortisone SOD SUC. 100 MG VIAL 50 MG IVP (01:45)
[2023-05-05] MEDS: PROPOFOL 1,000 MG/100 ML BTL 47 MG IV ×2 (01:46→04:04)
[2023-05-05] MEDS: Normal Saline Flush 10 ML SYR IVP (01:47)
[2023-05-05] MEDS: VASOPRESSIN 50 UNITS in Normal Saline 497.5 ML 24 UNITS IV (02:30)
--- NOTE | 2023-05-05 02:50 | PGE_ITS ---
Date of Service Date of service: 05/05/23 Time of Service: 02:50 Assessment and Plan Assessment and plan (1) Septic shock: Status: Acute Assessment and plan: She has a severe septic shock secondary to peritonitis. I have added vasopressin to the norepinephrine. I have also started stress dose steroids. Epidural has been stopped. We will continue with aggressive fluid resuscitation and titration of the vasopressors to maintain an appropriate mean arterial blood pressure. At this point, I do not think there is any benefit to transfusion of packed red blood cells as hemoglobin is well over 11. I have also added a dose of linezolid to the vancomycin and Zosyn. Given the severity of her septic shock, and the trajectory of her hemodynamics, I did discuss transferring her to higher level of care with her daughter and daughter. I have already spoken with [facility]. Unfortunately, they have no available intensive care unit beds. I am in contact with [facility], we will continue to try to find other locations to support her critical care. Although another abdominal washout might be useful, and like to try to gain some ground on her hemodynamics prior to that. Furthermore, return to the operating room but almost certainly result in an open abdomen which will be a little bit challenging with our resources here. I will continue to reassess through the night Subjective Subjective Interval history since last seen: Jeri has remained hypotensive after surgery, with increasing requirements of norepinephrine. Acidosis has improved a little bit, but this is complicated by respiratory alkalosis. Hemoglobin is stable. Exam GI Other: Abdomen soft and nondistended. Surgical drains are mostly serous. Wound is clean. Stoma is dusky. There is some nonbilious output in the ileostomy bag Skin Other: Fingers and toes are cool and clammy. Objective Last Vital Signs Temp 99.3 F 05/04/23 20:41 Pulse 135 H 05/04/23 21:40 Resp 23 05/05/23 02:13 BP 75/51 L 05/05/23 02:13 Pulse Ox 96 05/05/23 02:13 Laboratory Results - last 24 hr 05/04/23 05/04/23 05/04/23 03:00 06:00 09:50 WBC 5.42 RBC 3.10 L Hgb 9.6 L Hct 28.1 L MCV 91 MCH 31.0 MCHC 34.2 RDW 13.1 Plt Count 266 MPV 11.0 Immature Gran % 0.0 Neutrophils % 82.0 Band Neutrophils % 9 Lymphocytes % 5.0 Atypical Lymphs % 1 Monocytes % 3.0 Eosinophils % 0.0 Basophils % 0.0 Nucleated RBC % 0.0 Absolute Neutrophils 4.93 Absolute Lymphocytes 0.33 L Absolute Monocytes 0.16 Absolute Eosinophils 0.00 Absolute Basophils 0.00 ABG Sample Site ABG pH ABG pCO2 ABG pO2 ABG HCO3 ABG Total CO2 ABG O2 Saturation ABG Base Excess VBG Lactate 2.2 H* Sodium 139 Potassium 3.0 L Chloride 100 Carbon Dioxide 24.8 Anion Gap 14.2 H BUN 19 H Creatinine 1.6 H Est GFR (CKD-EPI 2020) 38.33 Glucose 97 Calcium 9.2 Phosphorus Magnesium 1.2 L C-Reactive Protein > 25.00 H Stl C.difficile Tox PCR Negative 05/04/23 05/04/23 05/04/23 14:35 18:45 22:45 WBC 3.03 L RBC 3.78 L Hgb 11.9 D Hct 34.3 L MCV 91 MCH 31.5 MCHC 34.7 RDW 13.2 Plt Count 257 MPV 10.4 Immature Gran % Neutrophils % Band Neutrophils % Lymphocytes % Atypical Lymphs % Monocytes % Eosinophils % Basophils % Nucleated RBC % Absolute Neutrophils Absolute Lymphocytes Absolute Monocytes Absolute Eosinophils Absolute Basophils ABG Sample Site Not Applicable Right Radial ABG pH 7.29 L 7.48 H ABG pCO2 47 H 25 L ABG pO2 148 H 66 L ABG HCO3 22 19 L ABG Total CO2 21 L 17 L ABG O2 Saturation 99 H 94 L ABG Base Excess -4 L -5 L VBG Lactate 2.4 H* 2.3 H* Sodium 135 L Potassium 3.4 L Chloride 100 Carbon Dioxide 24.3 Anion Gap 10.7 BUN 26 H Creatinine 1.6 H Est GFR (CKD-EPI 2020) 38.33 Glucose 134 H Calcium 8.1 L Phosphorus 4.9 H Magnesium 1.4 L C-Reactive Protein > 25.00 H Stl C.difficile Tox PCR 05/05/23 01:28 WBC 3.09 L RBC 3.71 L Hgb 11.7 Hct 33.0 L MCV 89 MCH 31.5 MCHC 35.5 RDW 13.0 Plt Count 233 MPV 10.8 Immature Gran % Neutrophils % Band Neutrophils % Lymphocytes % Atypical Lymphs % Monocytes % Eosinophils % Basophils % Nucleated RBC % Absolute Neutrophils Absolute Lymphocytes Absolute Monocytes Absolute Eosinophils Absolute Basophils ABG Sample Site ABG pH ABG pCO2 ABG pO2 ABG HCO3 ABG Total CO2 ABG O2 Saturation ABG Base Excess VBG Lactate 2.6 H* Sodium Potassium Chloride Carbon Dioxide Anion Gap BUN Creatinine Est GFR (CKD-EPI 2020) Glucose Calcium Phosphorus Magnesium C-Reactive Protein Stl C.difficile Tox PCR Time Spent with Patient Time Spent with Patient: >50 minutes Time was spent: preparing to see the patient(eg.review tests), ordering medications,tests, procedures, referring, communicating with other health nurse healthcare manager, indepentently interpreting results and care coordination
[2023-05-05] MEDS: LINEZOLID 600 MG/300 ML BAG 300 MG IVPB (02:52)
[2023-05-05] MEDS: Lactated Ringers 500 ML 1000 ML IV (03:06)
[2023-05-05] MEDS: Norepinephrine in D5W 8 MG/250 ML BAG 30 MG IV (04:49)
[2023-05-05] MEDS: PIPERACILLIN/TAZO 3.375 GM in Normal Saline 50 ML IVPB (04:50)
--- NOTE | 2023-05-05 08:07 | NUR.NOTE ---
0428-Air crew from [facility] here along with Dr. Martinez and the patients daughters. report given.
--- NOTE | 2023-05-05 08:11 | NUR.NOTE ---
Air crew staff given a bag of norepinephrine and a pip/morena dose for the trip. Report given. pt packed up and daughters took all valuables with them. Team left at 0530. Report called to Joselito Centeno at 0505. at the SICU.
[2023-05-05] MEDS: Vasopressin 20 UNITS/ML VIAL (09:31)
--- NOTE | 2023-05-05 09:49 | PDOC.CMDIS ---
Date of service: 05/05/23 Time of Service: 09:49 LACE Index Scoring Tool Questions: Length of Stay (in days): 4 - 6 Was the patient admitted via the E.D.?: No E.D. Visits: 4 Answers: Total Score: 8 Risk of Readmission: Low Risk Care Management Discharge Plan Reason for Hospitalization: Acute on chronic diverticulitis Discharge Plan: Omaira was transferred to [facility] today for further care. She was transported via EMS, coordinated by RN sewage plant supervisor.
--- NOTE | 2023-05-05 10:03 | CMPROGNOTE_ITS ---
Date of service: 05/05/23 Time of Service: 10:03 Care Management Progress Note Progress Note Text Progress Note Text: Omaira was transferred to [facility] early this morning for tertiary care. She was transported via EMS, coordinated by RN supervisor paste plant. The plan was discussed with Omaira and her family, who were all in agreement of the transfer.
--- NOTE | 2023-05-05 10:03 | PDOC.CMPRO ---
Date of service: 05/05/23 Time of Service: 10:03 Care Management Progress Note Progress Note Text Progress Note Text: Omaira was transferred to [facility] early this morning for tertiary care. She was transported via EMS, coordinated by RN blooming mill supervisor. The plan was discussed with Omaira and her family, who were all in agreement of the transfer.
--- NOTE | 2023-05-10 18:55 | W.PM.DS.N ---
Date of service: 05/05/23 Time of Service: 04:00 DS: Diagnosis Discharge Diagnosis (1) Septic shock: Status: Acute Asessment and Plan: Patient transferred emergently to [facility] for septic shock Discharge Plan Disposition Patient Disposition: Transfer-Acute Inpatient Care Specific Acute Inpt Facility: [facility] Condition: Critical Discharge Details Reason For Visit: Acute on Chronic Diverticulitis Admit Date/Time: 05/01/23 09:52 Admit Provider: Sloane Rosenberg Attending Provider: Sloane Rosenberg Primary Care Provider: Charanjit Arias Hospital Course Hospital Course: Omaira is 53 years old. She has a history of complicated diverticulitis. She was anticipating elective sigmoid colectomy when she began experiencing recrudescence of her abdominal pain. She underwent a CAT scan of the abdomen and pelvis on May 01 that demonstrated sigmoid diverticulitis without evidence of perforation or abscess. She went to the operating room on May 02 for sigmoid colectomy with a primary anastomosis. On postoperative day #1 she began experiencing fevers, as well as some transient hypotension. She was resuscitated with intravenous fluids, and multiple adjustments were made to her treatment in an effort to identify the source of her fevers. By the next day, she developed significant abdominal distention with associated nausea and vomiting. CRP was elevated despite a normal white blood cell count. In light of these changes, I recommended returning to the operating room in an effort to identify the source of what appeared to be sepsis. On reexploration, she was found to have an anastomotic leak. I debrided the area of the leak, and re-closed that portion of the anastomosis in 2 layers. I also created a diverting ileostomy. Her operative and postoperative course were complicated by hypotension that required escalating levels of resuscitation. Because of her evolving septic shock, I recommended transfer to higher level of care. No beds were available at [facility], but [facility] was able to except. I spoke to the attending surgeon on-call, discussed the natural history of her disease, her operative interventions, the findings at the repeat operation, CA involving strategies to support her through septic shock. No other changes were made, and we transferred her emergently by way of helicopter to [facility] for ongoing treatment. I sent copies of her history and physical as well as operative reports. Home Meds and New Rx's Prescriptions: No Action omeprazole magnesium [Prilosec OTC] 20 mg tablet,delayed release (DR/EC) 20 mg PO DAILY Qty: 90 3RF Fiber Gummies 2 gram tablet,chewable 4 g PO DAILY hydrochlorothiazide 12.5 mg tablet 12.5 mg PO DAILY Qty: 90 3RF metoprolol succinate 50 mg tablet extended release 24 hr 50 mg PO DAILY Qty: 90 3RF atorvastatin 40 mg tablet 40 mg PO DAILY Qty: 90 3RF fenofibrate nanocrystallized [Tricor] 145 mg tablet 145 mg PO DAILY Qty: 90 3RF Prempro 0.3-1.5 mg tablet 1 tab PO DAILY Qty: 84 2RF levofloxacin 750 mg tablet 750 mg PO DAILY 7 Days Qty: 14 3RF Bio-K plus 50 billion cell capsule,delayed release(DR/EC) 1 cap PO DAILY Qty: 30 6RF magnesium 250 mg tablet 250 mg PO DAILY Qty: 30 0RF mirtazapine [Remeron] 15 mg tablet 15 mg PO HS Discharge Instructions Activity:: Activity as Tolerated Equipment/Supplies:: No Equipment Needed Diet:: NPO with NGT Discharge Orders Discharge Orders: Discharge Order (Routine); Ordered 05/10/23 Ordered By: Jason Martinez Discharge Data Discharge Date/Time-TO BE ENTERED AT DEPARTURE: 05/05/23 05:30 DS: Summary Time Spent with Patient providing and/or coordinating discharge services: Greater than 30 minutes Status at Discharge Functional status at discharge: bed bound Overall status at discharge: other (Critically ill) Mental Status: other (Sedated) Speech and Movement: other (Sedated) Mood: other (Sedated) Affect: other (Sedated) Exam Resp Auscultation: clear to auscultation bilaterally Other: Intubated with mechanical ventilation Cardio Rate: tachycardic Rhythm: regular rhythm Other: Supported with norepinephrine as well as vasopressin GI Other: Abdomen soft and mildly distended. Wound is closed at the fascial level with Kerlix packing. Bandages appear clean. Stoma is dusky Psych Mental Status: other (Sedated) Speech and Movement: other (Sedated) Mood: other (Sedated) Affect: other (Sedated) DS: Data Vitals/I&O Vitals and I&O: Vital Signs Temperature 101.8 F H 05/05/23 03:00 Temperature Source Tympanic 12/15/23 03:00 Pulse 102 H 05/05/23 04:01 Pulse Rhythm Regular 05/03/23 23:49 Pulse 102 H 05/05/23 04:30 Respiratory Rate 25 H 05/05/23 04:30 Respiratory Effort Mechanically Ventilated 05/05/23 03:00 Respiratory Depth Normal 05/04/23 17:50 Respiratory Pattern Tachypnea 05/04/23 23:00 Blood Pressure 142/85 H 05/05/23 04:22 Blood Pressure Mean 101 05/05/23 04:01 Blood Pressure Position Supine 05/04/23 23:00 Pulse Oximetry 96 05/05/23 04:30 Respiratory End-tidal CO2 31 05/05/23 04:30 Oxygen Delivery Method Mechanical Ventilator 05/04/23 23:00 Oxygen Flow Rate 0 05/04/23 23:00 Fraction of Inspired Oxygen (FIO2) 35 05/05/23 05:45 Pain Level 4 05/04/23 10:00 Comment telenol IV given for temp 05/04/23 04:55 Arterial Systolic 141 05/05/23 04:30 Arterial Diastolic 84 05/05/23 04:30 Arterial Mean 106 05/05/23 04:30 PFSH All Active Problems Septic shock (Acute) Hypotension (Acute) Fever (Acute) Smoker (Acute) Abdominal pain (Acute) Diverticulitis large intestine (Acute) Hyperplastic colon polyp (Acute ~01/17/23) Diverticulosis (Acute) Chronic constipation (Acute) Adjustment disorder with anxious mood (Acute) Essential hypertension (Acute) Hyperlipidemia LDL goal <130 (Acute) C. difficile colitis (Acute) Left lower quadrant pain (Acute) Depression (Chronic) Dizziness (Acute) Hot flashes (Acute) Tobacco abuse (Acute) Leg pain, bilateral (Acute) Upper respiratory infection (Acute) Ovarian mass, right (Acute) we will get u/s, as suggested tylenol as needed for pain Medical History Acute diverticulitis Diverticulitis Tonsillar hypertrophy Peritonsillar abscess Surgical History History of colon resection (~04/2023) S/P laparoscopic assisted vaginal hysterectomy (LAVH) super-cervical S/P tonsillectomy History of colonoscopy (~12/2022) Ligation of fallopian tube HYSTERECTOMY Supracervical Family History Mother Hyperlipidemia Father Essential hypertension Sister No problems noted. Brother Hyperlipidemia Grandfather No problems noted. Grandfather Personal history of malignant neoplasm COLON Grandmother No problems noted. 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 Pets and animals: Yes Pets and animals: dog(s) Sexually active: Yes Do you think of yourself as: straight/heterosexual Current gender identity: female What is your relationship status?: How often do you talk on the phone with friends or family?: twice per week How often do you get together with friends or relatives?: twice per week How often do you attend confucianist or restorationist services?: decline to answer Do you belong to any clubs or organized social groups?: no Panel score (0-1 are the most socially isolated patients): 2 What type of physical activity do you participate in: walking Duration: 15-30 minutes/day Frequency: 1-2 times per week Rekha/Protestant: None Special rekha needs: No Seatbelt use: always Helmet use: Yes Helmet use: always Drive intox or ride w/intox speedboat driver: No Do you feel safe at home: Yes Do you feel safe in your relationship?: Yes Time Spent with Patient Time Spent with Patient: >85 minutes Time was spent: preparing to see the patient(eg.review tests), referring, communicating with other health animal care specialist, indepentently interpreting results, counseling the patient, care coordination and other (Transfer of critically ill patient)
== END 2023-05-05 05:30 | disposition short-term general hospital (02) | DRG 329 ==
LOC: MS 05-02 07:46 → ICU 05-03 16:15
PROVIDERS: Nurse Anesthetist, Certified Registered; Surgery; Admitting Provider Surgery; PCP Family Medicine; Visit Provider Surgery
PROC: 0DTN0ZZ Resection of Sigmoid Colon, Open Approach (ICD-10-PCS; CPT 49000; principal; 2023-05-02 08:30)
PROC: 0D1B0Z4 Bypass Ileum to Cutaneous, Open Approach (ICD-10-PCS; CPT 49320; principal; 2023-05-04 10:30)
PROC: 0DJD8ZZ Inspection of Lower Intestinal Tract, Via Natural or Artificial Opening Endoscopic (ICD-10-PCS; CPT 45330; 2023-05-04 10:30)
DX: K57.32 Diverticulitis of large intestine without perforation or abscess without bleeding (principal); A41.9 Sepsis, unspecified organism; R65.21 Severe sepsis with septic shock; K65.9 Peritonitis, unspecified; T81.32XA Disruption of internal operation (surgical) wound, not elsewhere classified, initial encounter; K91.89 Other postprocedural complications and disorders of digestive system; T81.40XA Infection following a procedure, unspecified, initial encounter; I95.89 Other hypotension; Z53.31 Laparoscopic surgical procedure converted to open procedure; F17.210 Nicotine dependence, cigarettes, uncomplicated; K59.09 Other constipation; F43.22 Adjustment disorder with anxiety; E78.5 Hyperlipidemia, unspecified; I10 Essential (primary) hypertension; F32.A Depression, unspecified; Y83.2 Surgical operation with anastomosis, bypass or graft as the cause of abnormal reaction of the patient, or of later complication, without mention of misadventure at the time of the procedure
CPT/HCPCS: 44140; 45330; 44605; 01996; 36415; 36556; 36591; 36620; 62326; 76937; 80048; 80053; 82805; 85027; 86850; 86900; 86901; 87040; 87493; 87635; J1650; 36600; 71045; 74177; 83605; 83735; 84100; 85025; 86140; 88307; 94002; 94003; J0131; J1100; J1170; J1720; J1885; J2001; J2020; J2250; J2371; J2405; J2543; J3010; J3475; J3480; J3490; Q9967

== ENCOUNTER 2023-06-03 14:32 | Outpatient (REF) | payer MEDICAID, SELFPAY ==
[2023-06-03 15:03] LABS: Abs Immature Grans 0.06 10^3/uL (0.0-0.06); Absolute Basophil Count 0.08 10^3/uL (0.0-0.2); Absolute Eosinophil Count 0.15 10^3/uL (0.0-0.7); Absolute Lymphocyte Count 2.46 10^3/uL (1.2-3.4); Absolute Monocyte Count 0.77 10^3/uL (0.1-0.8); Absolute Neutrophil Count 3.97 10^3/uL (1.2-6.7); Basophils % 1.1; HCT 27.4 % (36.0-46.0); HGB 8.8 g/dL (11.2-15.7); Immature Grans % 0.8; Lymphocytes % 32.8; MCH 30.1 pg (27.0-33.0); MCHC 32.1 % (32.0-36.0); MCV 94 fL (80-95); Monocytes % 10.3; Platelet Count 536 10^3/uL (130-400); RBC 2.92 10^6/uL (3.93-5.22); RDW 16.5 % (11.7-14.6); RDW-SD 54.3 fL; WBC 7.49 10^3/uL (4.4-10.8)
[2023-06-03 15:11] LABS: Anion Gap 13.3 mmol/L (3-11); BUN 15 mg/dL (7-18); CO2 24.7 mmol/L (21.0-32.0); CREATININE 0.9 mg/dL (0.55-1.02); Calcium 9.5 mg/dL (8.5-10.1); Chloride 101 mmol/L (98-107); Estimated GFR 76.44 (mL/min/1.73m2); Glucose 126 mg/dL (74-106); Magnesium 1.1 mg/dL (1.8-2.4); PHOSPHORUS 5.5 mg/dL (2.6-4.7); Potassium 4.6 mmol/L (3.5-5.1); Sodium 139 mmol/L (136-145)
== END 2023-06-03 14:33 | disposition home or self-care (01) ==
LOC: LBN 14:32
PROVIDERS: PCP Family Medicine; Visit Provider Family Medicine
DX: D64.9 Anemia, unspecified (principal); E87.1 Hypo-osmolality and hyponatremia; E83.39 Other disorders of phosphorus metabolism; E83.42 Hypomagnesemia
CPT/HCPCS: 80048; 83735; 84100; 85025

== ENCOUNTER 2023-06-28 02:34 | Outpatient (CLI) | payer MEDICAID, SELFPAY ==
[2023-06-28 12:19] LABS: HCT 36.1 % (36.0-46.0); HGB 11.6 g/dL (11.2-15.7); MCH 30.1 pg (27.0-33.0); MCHC 32.1 % (32.0-36.0); MCV 94 fL (80-95); MPV 10.4 fL (8.0-11.0); Platelet Count 466 10^3/uL (130-400); RBC 3.85 10^6/uL (3.93-5.22); RDW 17.2 % (11.7-14.6); RDW-SD 58.8 fL; WBC 8.45 10^3/uL (4.4-10.8)
[2023-06-28 12:28] LABS: Magnesium 1.7 mg/dL (1.8-2.4); Potassium 4.3 mmol/L (3.5-5.1)
[2023-06-28 15:39] LABS: Lab Add On Test DONE
== END 2023-06-28 02:35 | disposition home or self-care (01) ==
LOC: LOS 02:35
PROVIDERS: PCP Family Medicine; Visit Provider Family Medicine
DX: I10 Essential (primary) hypertension (principal); E83.42 Hypomagnesemia; R53.83 Other fatigue; R07.81 Pleurodynia
CPT/HCPCS: 36415; 85027; 83735; 84132; 85379

== ENCOUNTER 2023-06-29 13:39 | Outpatient (CLI) | payer MEDICAID, SELFPAY ==
[2023-06-29 14:17] LABS: D-Dimer 446 ng/mlFEU (<500)
== END 2023-06-29 13:40 | disposition home or self-care (01) ==
LOC: LBO 13:40
PROVIDERS: PCP Family Medicine; Visit Provider Family Medicine
DX: R07.81 Pleurodynia (principal)
CPT/HCPCS: 36415; 85379

== ENCOUNTER 2023-09-20 09:50 | Outpatient (CLI) | payer MEDICAID, SELFPAY ==
[2023-09-20 10:34] LABS: Cholesterol 302 mg/dL (<200); HDL Cholesterol 39 mg/dL (40-60); Triglyceride 602 mg/dL (<150)
[2023-09-20 10:47] LABS: LDL CHOLESTEROL 178 mg/dL (<100)
== END 2023-09-20 09:51 | disposition home or self-care (01) ==
LOC: LBO 09:50
PROVIDERS: PCP Family Medicine; Visit Provider Family Medicine
DX: E78.5 Hyperlipidemia, unspecified (principal)
CPT/HCPCS: 36415; 80061; 83721

== ENCOUNTER 2024-04-11 03:23 | Outpatient (CLI) | payer MEDICAID, SELFPAY ==
[2024-04-11 12:46] LABS: HCT 45.4 % (36.0-46.0); HGB 14.6 g/dL (11.2-15.7); MCH 30.3 pg (27.0-33.0); MCHC 32.2 % (32.0-36.0); MCV 94 fL (80-95); MPV 10.9 fL (8.0-11.0); Platelet Count 305 10^3/uL (130-400); RBC 4.82 10^6/uL (3.93-5.22); RDW 13.3 % (11.7-14.6); RDW-SD 46.2 fL; WBC 5.24 10^3/uL (4.4-10.8)
[2024-04-11 13:22] LABS: Anion Gap 9.6 mmol/L (3-11); BUN 8 mg/dL (7-18); CO2 27.4 mmol/L (21.0-32.0); Calcium 9.9 mg/dL (8.5-10.1); Calculated LDL 153 mg/dL (<100); Chloride 106 mmol/L (98-107); Cholesterol 281 mg/dL (<200); Estimated GFR 66.95 (mL/min/1.73m2); Glucose 102 mg/dL (74-106); HDL Cholesterol 52 mg/dL (40-60); Potassium 4.2 mmol/L (3.5-5.1); Sodium 143 mmol/L (136-145); Triglyceride 380 mg/dL (<150)
[2024-04-16 09:13] LABS: Apolipoprotein B, Serum 152 mg/dL (48-124); Beta VLDL Cholesterol Not Detected mg/dL (<15); Beta VLDL Triglycerides Not Detected mg/dL (<15); Cholesterol, Total, CDC 280 mg/dL; Chylomicron Cholesterol 1 mg/dL; Chylomicron Triglycerides 29 mg/dL; HDL Cholesterol, CDC 39 mg/dL (>=50); LDL Cholesterol 161 mg/dL; LDL Triglycerides 86 mg/dL (<=50); Lp(a) Cholesterol 9 mg/dL (<5); LpX Not detected; Triglycerides, CDC 396 mg/dL; VLDL Cholesterol 70 mg/dL (<30); VLDL Triglycerides 251 mg/dL (<120)
== END 2024-04-11 03:24 | disposition home or self-care (01) ==
PROVIDERS: PCP Family Medicine; Visit Provider Family Medicine
DX: K56.600 Partial intestinal obstruction, unspecified as to cause (principal); E78.1 Pure hyperglyceridemia; E78.5 Hyperlipidemia, unspecified
CPT/HCPCS: 36415; 80048; 80061; 85027; 82172; 82664

== ENCOUNTER 2024-07-31 04:42 | Outpatient (CLI) | payer MEDICAID, SELFPAY ==
[2024-07-31 12:56] LABS: Magnesium 1.9 mg/dL (1.8-2.4)
== END 2024-07-31 04:43 | disposition home or self-care (01) ==
LOC: LOS 04:42
PROVIDERS: PCP Family Medicine; Visit Provider Family Medicine
DX: E83.42 Hypomagnesemia (principal); Z71.89 Other specified counseling
CPT/HCPCS: 36415; 83735

== ENCOUNTER 2024-09-13 00:22 | Outpatient (CLI) | payer MEDICAID, SELFPAY ==
--- NOTE | 2024-09-13 06:30 | DI.RAD_ITS ---
Exam(s) XR CHEST 2V PA LATERAL EXAM: XR CHEST 2V PA LATERAL CLINICAL HISTORY: reassess RUL pneumonia,j18.9. TECHNIQUE: 2D digital imaging was performed. COMPARISON: CR XR PORTABLE CHEST AP from 05/04/2023 FINDINGS: 2 views: Heart size is normal. The mediastinum is not widened. Left lung is clear. However, there is abnormal infiltrate at the level the right hilum and extending outwards in the right upper lobe to pleural surface. Cannot exclude neoplasm. No pleural effusions . Opposite-left lung is clear. IMPRESSION: Concerning prominent infiltrate right hilum and right upper lobe. May be infectious but requires bianka se follow-up to rule out lung malignancy.Recommend contrast infused chest CT scan. DATA REPOSITORY: RADIATION DOSE DELIVERED:
== END 2024-09-13 00:42 ==
LOC: DI 00:23
PROVIDERS: PCP Family Medicine; Visit Provider Family Medicine
DX: J18.9 Pneumonia, unspecified organism (principal)
CPT/HCPCS: 71046

== ENCOUNTER 2024-09-19 01:51 | Outpatient (CLI) | payer MEDICAID, SELFPAY ==
--- NOTE | 2024-09-19 06:15 | DI.CT_ITS ---
Exam(s) CT CHEST/ABD/PEL W EXAM: CT CHEST/ABD/PEL W CLINICAL HISTORY: low and ,r91.8,r10.30abd pain/lung nodule TECHNIQUE: Imaging Protocol: Axial computed tomography images with coronal and sagittal reformatted images were created and reviewed. Lung Computer Aided Detection (CAD) was utilized. CONTRAST MATERIAL: Intravenous: Omnipaque 350 contrast volume:100 mL Oral: Yes COMPARISON: CT CT ABDOMEN PELVIS W from 04/15/[address] ABDOMEN PELVIS W from 05/01/2023 CR XR PORTABLE CHEST AP from 05/04/2023 CR XR CHEST 2V PA LATERAL from 09/13/2024 FINDINGS: CHEST: Tracheobronchial tree: Patent where visualized. No evidence of bronchiectasis. Pulmonary parenchyma: There is a large area of volume loss involving the lateral aspect of the right upper lobe. There is some bronchiectasis involved in the right upper lobe. There is an infiltrate see n in the superior aspect of the right lower lobe. Linear areas of atelectasis is seen in the left low er lobe. Visualized thyroid gland: Unremarkable. Mediastinum and Keri: No dominant adenopathy or fluid collection. The esophagus is unremarkable. Dimitri cified lymph nodes are seen in the mediastinum consistent with prior granulomatous disease. Pleura: No effusion or pneumothorax. Heart: The heart is not dilated. No coronary artery calcifications are seen. No pericardial effusion. Pulmonary arteries: No pulmonary emboli are identified. Aorta: Thoracic aorta non-dilated. No evidence of dissection. Lymph nodes: Within normal limits. Soft tissues: Unremarkable. Bones:Within normal limits for the patient's age. ABDOMEN: Liver: Normal density. There are few tiny scattered hypodensities in the liver. They are too small f or further characterization but likely reflect small cysts. There is again seen a cyst in the left l obe of the liver which is simple. It has shown interval decrease in size compared to the prior exami [facility]. It measures 3.6 x 3.4 cm. This compares to 4.9 x 4.7 cm on the prior examination. No suspi cious hepatic masses are seen. Portal, Superior Mesenteric, and Splenic Veins: Unremarkable. Gallbladder and Biliary Tract: No radiodense calculus or dilation. Pancreas: Normal density, no abnormal calcifications or inflammatory process. Spleen: Normal. Adrenals: No masses seen. Kidneys: Normal size, contour and axis. No radiodense stones or obstructive uropathy. There is a smal l simple cyst in the inferior pole of the left kidney measuring 8 mm. No follow-up is recommended. Abdominal Aorta: Abdominal portion non-dilated. Atherosclerotic calcification is present. Bowel: Anastomosis clips are seen in the distal sigmoid colon. There are few diverticula seen in the colon. There is no evidence of diverticulitis. There is no evidence of bowel obstruction or bowel wall thickening. Appendix is unremarkable. Peritoneal Cavity: No ascites, collection or mesenteric inflammatory response. No free air. Lymph Nodes: Within normal limits. Bones: Within normal limits for the patient's age. Soft Tissues: Infiltration in the soft tissues in the anterior abdominal wall in the midline. No foca l fluid collection is seen to suggest an abscess. Since the prior examination, there appears to be a midline surgical scar below the umbilicus. Please correlate with patient's surgical history. PELVIS: Bladder: Symmetric distention, no gross wall thickening. Reproductive Organs: Unremarkable as visualized. Lymph Nodes: Within normal limits. Bones: Within normal limits. IMPRESSION: 1. No acute intra-abdominal or pelvic process. 2. Findings suggestive midline anterior abdominal wall scar. There is infiltration in the subcutaneou s tissues in the anterior abdominal wall. This may be postsurgical. Cellulitis should be considered. No focal fluid collection is seen to suggest an abscess. 3. Large area of volume loss involving the right upper lobe. This may represent combination of atelec tasis and pneumonia. Possibility of an obstructing central mass/neoplasm should be considered. 4. Infiltrate in the superior segment of the right lower lobe. Pneumonia versus atelectasis. RADIATION DOSE DELIVERED: 439.67mGy.cm Total DLP DATA REPOSITORY: All CT scans at this facility are submitted to the National Radiology Data Registry (NRDR) Dose Index Registry (DIR) with the [employer] (A[employer]). RADIATION OPTIMIZATION: All CT scans at this facility use at least one of these dose optimization te chniques: automated exposure control; mA and/or kV adjustment per patient size (includes targeted exa ms where dose is matched to clinical indication); or iterative reconstruction.
[2024-09-19] MEDS: Barium Sulfate 2% W/V-Berry Smoothie 450 ML BTL PO (06:43)
[2024-09-19] MEDS: Barium Sulfate 2% W/V-Creamy Vanilla Smoothie 450 ML BTL PO (06:44)
[2024-09-19] MEDS: Normal Saline - Diluent 50 ML VIAL IJ (08:42)
[2024-09-19] MEDS: Omnipaque 350 MG/ML 500 ML BTL-Imaging package 100 ML IJ (08:43)
== END 2024-09-19 02:11 ==
LOC: DI 01:52
PROVIDERS: PCP Family Medicine; Visit Provider Family Medicine
DX: R10.30 Lower abdominal pain, unspecified (principal); R91.8 Other nonspecific abnormal finding of lung field
CPT/HCPCS: 74177; 71260

== ENCOUNTER 2024-10-11 08:54 | Outpatient (CLI) | payer MEDICAID, SELFPAY ==
[2024-10-16 17:46] LABS: Apolipoprotein B, Serum 137 mg/dL (48-124); Beta VLDL Cholesterol Not Detected mg/dL (<15); Beta VLDL Triglycerides Not Detected mg/dL (<15); Cholesterol, Total, CDC 243 mg/dL; Chylomicron Cholesterol 4 mg/dL; Chylomicron Triglycerides 78 mg/dL; HDL Cholesterol, CDC 40 mg/dL (>=50); LDL Cholesterol 135 mg/dL; LDL Triglycerides 57 mg/dL (<=50); Lp(a) Cholesterol 12 mg/dL (<5); LpX Not detected; Triglycerides, CDC 329 mg/dL; VLDL Cholesterol 52 mg/dL (<30); VLDL Triglycerides 167 mg/dL (<120)
== END 2024-10-11 08:55 | disposition home or self-care (01) ==
LOC: LBO 08:55
PROVIDERS: PCP Family Medicine; Visit Provider Family Medicine
DX: E78.2 Mixed hyperlipidemia (principal)
CPT/HCPCS: 36415; 80061; 82172; 82664

== ENCOUNTER 2024-12-18 02:52 | Outpatient (CLI) | payer MEDICAID, SELFPAY ==
--- NOTE | 2024-12-18 07:15 | DI.MAMMO_ITS ---
Exam(s) MAMMO SCREENING EXAM: MAMMO SCREENING CLINICAL HISTORY: screening, Z12.39 TECHNIQUE: Mammograms were interpreted according to the usual protocol including computer analysis with CAD system, tomosynthesis and C-view imaging. COMPARISON: 2015 through 2022 FINDINGS: The breasts are composed of heterogeneously dense fibroglandular densities, Breast Density category C. No suspicious masses or suspicious microcalcifications are seen. No skin thickening or abnormal axillary lymph nodes are seen. There has been no significant change from prior exams. IMPRESSION: BI-RADS Category 1, Negative mammogram. Yearly screening mammography is recommended. Breast Density: Category C - The breasts are heterogeneously dense, which may obscure small masses. Breast density Category C or D implies that the patient has dense breast tissue. Dense breast tissue can make it harder to find cancer on a mammogram. Dense breast tissue is also associated with an increased risk of breast cancer. This information about the result of the mammogram report was provided to the patient to raise their awareness. Use this report when you speak with the patient about their risks for breast cancer, which includes their family history. At that time, you may recommend additional screening tests (Ultrasound or MRI) as these tests may add significant information. A negative radiographic report should not delay biopsy if a dominant or clinically suspicious mass is present. Up to ten percent of cancers are not identified on mammography. A negative report may reinforce clinical impression. Adenosis and dense breasts may obscure an underlying neoplasm. False positive reports average 6 to 10%.
== END 2024-12-18 03:12 ==
LOC: DI 02:52
PROVIDERS: PCP Family Medicine; Visit Provider Family Medicine
DX: Z12.31 Encounter for screening mammogram for malignant neoplasm of breast (principal); R92.333 Mammographic heterogeneous density, bilateral breasts
CPT/HCPCS: 77063; 77067

== ENCOUNTER 2025-03-27 01:30 | Outpatient (CLI) | payer MEDICAID, SELFPAY ==
[2025-03-27 08:56] LABS: Anion Gap 10.8 mmol/L (3-11); BUN 10 mg/dL (7-18); CO2 27.2 mmol/L (21.0-32.0); Calcium 9.8 mg/dL (8.5-10.1); Chloride 104 mmol/L (98-107); Glucose 103 mg/dL (74-106); Potassium 4.2 mmol/L (3.5-5.1); Sodium 142 mmol/L (136-145)
[2025-03-31 17:04] LABS: Apolipoprotein B, Serum 81 mg/dL (48-124); Beta VLDL Cholesterol Not Detected mg/dL (<15); Beta VLDL Triglycerides Not Detected mg/dL (<15); Cholesterol, Total, CDC 156 mg/dL; Chylomicron Cholesterol 4 mg/dL; Chylomicron Triglycerides 81 mg/dL; HDL Cholesterol, CDC 42 mg/dL (>=50); LpX Not detected; Triglycerides, CDC 252 mg/dL; VLDL Triglycerides 102 mg/dL (<120)
== END 2025-03-27 01:31 | disposition home or self-care (01) ==
LOC: LBO 01:30
PROVIDERS: PCP Family Medicine; Visit Provider Family Medicine
DX: E87.1 Hypo-osmolality and hyponatremia (principal); E78.2 Mixed hyperlipidemia
CPT/HCPCS: 36415; 80048; 80061; 83695; 82172; 82664